=== PATIENT | female | born 1950 | race Caucasian/White ===

== ENCOUNTER 2021-04-20 16:19 | Inpatient (IN) | payer MEDICARE, SELFPAY ==
--- NOTE | ~2021-04-20 | XR_ITS ---
XR hip RT min 3V w AP pelvis 04/20/2021 20:40 Indication: Right hip pain after fall Procedure: AP pelvis and 2 views right hip Comparison: No prior studies for comparison. Findings: There is a displaced right femoral neck fracture with varus angulation. Pelvic rings are in tact. No other fracture identified. Mild osteoarthritis of the hips. Sacral foramen are symmetric. Th ere is amorphous calcification in the left pelvis, likely calcified uterine fibroid. Impression: 1: Displaced right femoral neck fracture with varus angulation. Reviewed, dictated and finalized at location A. L MAIL CARRIER Impression: 1: Displaced right femoral neck fracture with varus angulation.
--- NOTE | ~2021-04-20 | CT_ITS ---
EXAMINATION: CT brain wo con DATE: 04/20/2021 20:48 INDICATION: Status post fall. Bruising of the right ICA. Laceration to the right eyelid. TECHNIQUE: Computed tomography (CT) of the head was performed without intravenous contrast. The dose- length product was 605.33 mGy-cm. Automated exposure control and iterative reconstruction technique w ere employed. COMPARISON: None FINDINGS: Mild generalized atrophy. There are scattered moderate periventricular and subcortical whit e matter changes, most likely related to small vessel ischemic disease (microangiopathy). No acute in tracranial hemorrhage, infarction, mass or mass effect. Paranasal sinuses and mastoids are pneumatize d. No depressed skull fractures. There is right sphenoid sinusitis. IMPRESSION: 1. No acute intracranial abnormality. 2: Chronic age-related findings. 3: Right sphenoid sinusitis. Reviewed, dictated and finalized at location A. ESS CONTROL BOARD OPERATOR
--- NOTE | ~2021-04-20 | XR_ITS ---
EXAMINATION: XR hip RT min 2V DATE: 04/21/2021 18:25 INDICATION: Right hip arthroplasty TECHNIQUE: 2 views right hip FINDINGS: There is a right bipolar hip arthroplasty in expected position. Subcutaneous gas with soft tissue swelling are consistent with recent surgery. IMPRESSION: 1. Recent right bipolar hip arthroplasty. Reviewed, dictated and finalized at location A. PRESIDENT OF PRODUCT MARKETING
--- NOTE | ~2021-04-20 | XR_ITS ---
XR chest 1V portable 04/20/2021 21:05 Indication: Preop Procedure: AP portable chest Comparison: 03/11/2006 Findings: Heart size normal. There is mild bilateral interstitial infiltrates with peribronchial thic kening no pleural effusion or pneumothorax. No acute osseous abnormality. Impression: 1: Bilateral interstitial infiltrates of the mid and lower lung zones which may reflect mild intersti tial edema or atypical pneumonia. Reviewed, dictated and finalized at location A. DBOAT DRIVER Impression: 1: Bilateral interstitial infiltrates of the mid and lower lung zones which may reflect mild interstitial edema or atypical pneumonia.
[2021-04-20 16:37] VITALS: BP 151/87; PULSE 92; RESP 18; TEMP 36.4; O2SAT 97
[2021-04-20 19:31] VITALS: BP 158/83; PULSE 95; RESP 18; TEMP 36.8; O2SAT 96
[2021-04-20] MEDS: TETANUS,DIPHTHERIA,AC PERTUSSIS ADULT (0.5 ML) BOOSTRIX IM (20:53)
--- NOTE | 2021-04-20 20:54 | ECG_ITS ---
Measurements Intervals Emporium Rate: 101 P: 51 MS: 112 QRS: 32 QRSD: 86 T: 75 QT: 308 QTc: 399 Interpretive Statements SINUS TACHYCARDIA WITH SHORT MS INTERVAL NONSPECIFIC ST & T-WAVE ABNORMALITY- DIFFUSE LEADS BASELINE ARTIFACT- I, II, III, AVR, AVF, V4 BORDERLINE ECG Electronically Signed On 04-21-2021 5:47:26 BOARD FILLER by Clayton Jose D.O.
--- NOTE | 2021-04-20 21:23 | ED.FALL ---
HPI - Fall General Chief Complaint: Fall Stated Complaint: Fall/ R hip pain/struck head Time Seen by Provider: 04/20/21 19:43 Source: patient Mode of arrival: wheelchair Limitations: no limitations History of Present Illness HPI Narrative: 70-year-old female Patient says that she was out in her yard where her has a large inflatable chipmunk as part of their [employer]ha display and it is steak that with ropes and she tripped over one of the ropes and fell on her right side She has right hip and thigh pain and is unable to bear weight She has contusion and abrasions to the right side of her face near her right eye No loss of consciousness No symptoms preceded the fall Past medical history is notable for type 2 diabetes and peripheral neuropathy Related Data Home Medications Medication Instructions Recorded Confirmed cetirizine 10 mg capsule 10 mg PO DAILY cap 03/20/19 03/17/21 naproxen sodium 220 mg capsule 440 mg PO .QD PRN cap 12/09/20 03/17/21 Allergies Allergy/AdvReac Type Severity Reaction Status Date / Time lisinopril Allergy Intermediate Cough Verified 03/17/21 10:31 egg AdvReac Mild WHOLE EGGS Verified 03/17/21 10:31 CAUSE N/V; OK IF IN FOOD Review of Systems Review of Systems: All systems reviewed & are unremarkable except as noted in HPI and below Constitutional: Constitutional: Reports no additional constitutional complaints, Denies chills, Denies fever(s) and Denies headache(s) Eyes: Eyes: Reports no additional eye complaints and Denies change in vision ENT: Reports system reviewed and no additional complaints, except as documented, Denies headache(s), Denies epistaxis and Denies sore throat Cardiovascular: Cardiovascular: Denies chest pain and Denies dyspnea Respiratory: Respiratory: Denies cough and Denies dyspnea Gastrointestinal: Gastrointestinal: Denies nausea and Denies vomiting Genitourinary: Genitourinary: Denies urinary frequency and Denies dysuria Musculoskeletal: Musculoskeletal: Denies back pain, Denies deformity, Reports arthralgias, Reports joint swelling and Denies numbness Integumentary/Breasts: Skin/Breast: Denies rash and Denies wounds Neurologic: Denies headache(s), Denies focal weakness and Denies numbness Psychiatric: Psychiatric: Reports no additional psychiatric complaints Endocrine: Endocrine: Reports no additional endocrine complaints Hematologic/Lymphatic: Hematologic/Lymphatic: Reports no additional hematologic/lymphatic complaints Allergic/Immunologic: Allergic/Immunologic: Reports no additional allergic/immunologic complaints [facility] Past Medical History Medical History BMI 25.0-25.9,adult BMI 26.0-26.9,adult Fatigue Hematuria Mixed hyperlipidemia Numbness and tingling of right arm Polyuria Type 2 diabetes, uncontrolled, with neuropathy Family History Family History Mother Family history of diabetes mellitus in first degree relative Other Diabetes mellitus Family history of coronary artery disease Hypertension Social History Social History Smoking status: Never smoker Alcohol intake: never Substance use: never Exam Const: General: cooperative, no acute distress and alert Orientation/consciousness: patient oriented x3 (alert) HENMT: Head: normocephalic, atraumatic, contusion, hematoma and laceration Ears: external ears normal General nose exam: no epistaxis Face and sinus: no sinus tenderness Other: Bruising around left eye and a tiny very superficial laceration No bony step-offs Pupil and conjunctive appear normal Ocular movements are intact in all directions Eyes: Conjunctivae: conjunctivae normal Pupils: Equal, round and reactive pupils present EOM: EOMs intact bilaterally Neck: Neck: normal visual inspection, supple and no JVD Other: No
[2021-04-20 21:33] LABS: Basophils Percent Auto 0.3 % (0.2-1.2); Eosinophils Absolute Auto 0.2 K/mm3 (0-0.3); Eosinophils Percent Auto 1.3 % (0-4.4); Hematocrit 41.6 % (37.0-47.0); Immature Granulocyte Absolute 0.07 K/mm3 (0.00-0.031); Immature Granulocyte Percent A 0.6 % (0-0.5); Lymphocytes Absolute Auto 1.61 K/mm3 (0.9-3.2); Lymphocytes Percent Auto 13.2 % (18.3-44.2); Mean Corpuscular HGB Conc 33.7 g/dl (32-36); Mean Corpuscular Hemoglobin 29.7 pg (26-34); Mean Corpuscular Volume 88.1 fl (80-100); Mean Platelet Volume 9.6 fl (7.4-10.4); Monocytes Absolute Auto 0.7 K/mm3 (0.1-0.6); Neutrophils Absolute Auto 9.6 K/mm3 (1.3-6.7); Neutrophils Percent Auto 78.6 % (45.5-73.1); Platelet Count Result 233 k/mm3 (150-375); Red Blood Count 4.72 M/mm3 (4.2-5.4); Red Cell Distribution Width 12.2 % (11.5-14.5); White Blood Count 12.2 K/mm3 (4.5-10.0)
[2021-04-20 21:41] LABS: Prothrombin Time 12.6 Seconds (11.1-14.7)
[2021-04-20 21:44] LABS: Anion Gap 13 mmol/L (8-16); Blood Urea Nitrogen 9 mg/dL (7-17); Calcium 9.9 mg/dL (8.4-10.2); Carbon Dioxide 25 mmol/L (22-30); Chloride 104 mmol/L (98-107); Estimated CRCL calculation 94 ml/min; Estimated Glomerular Filt Rate > 60; Glucose 150 mg/dL (65-110); Potassium 3.6 mmol/L (3.4-5.0); Sodium 142 mmol/L (137-145)
--- NOTE | 2021-04-20 21:47 | PM.IMHP ---
H&P: HPI History of Present Illness Date/Time: 04/20/21 21:47 Chief Complaint: Fall Narrative: This is a 70-year-old female with past medical history significant for type 2 diabetes mellitus, peripheral diabetic neuropathy, mixed hyperlipidemia. Patient presented to the emergency room via EMS after she had a fall from level ground after she tripped over Radha decorations in her yd falling on her right side and striking her right orbit. Patient was unable to get up on her on due to pain upon weight-bearing and limited range of motion with excruciating pain. Patient has been in her usual state of health she denies any loss of consciousness, syncope ,near syncope ,lightheadedness, dizziness, chest pain ,shortness of breath ,cough sputum production, fevers ,rigors or chills, no nausea ,no vomiting ,no diarrhea ,no abdominal pain, no calf pain ,no leg swelling, no palpitations. Preliminary workup in the emergency room was significant for hip x-ray with right femoral neck fracture with varus angulation and deformity. At the time of my visit patient was complaining of severe pain which is relieved with pain medication gets worse with movement. Decision has been made to admit the patient for further evaluation management and treatment, orthopedic surgery has been consulted. Review of Systems Review of Systems: Fall ,right orbit blunt trauma, right hip pain limited range of motion pain upon weight-bearing. Constitutional: Constitutional: Denies chills, Denies fever(s), Denies frequent falls, Denies malaise, Denies night sweats, Denies poor appetite and Denies weakness Eyes: Eyes: Denies change in vision ENT: Denies dysphagia, Denies vertigo, Denies dizziness, Denies nasal congestion, Denies nasal discharge and Denies odynophagia Cardiovascular: Cardiovascular: Denies chest pain with activity, Denies radiating jaw, neck or arm pain, Denies palpitations, Denies dyspnea, Denies dyspnea on exertion and Denies orthopnea Respiratory: Respiratory: Denies cough, Denies excessive phlegm production and Denies dyspnea Gastrointestinal: Gastrointestinal: Denies abdominal pain, Denies dyspepsia, Denies heartburn, Denies diarrhea, Denies nausea and Denies vomiting Genitourinary: Genitourinary: Denies dysuria and Denies flank pain Musculoskeletal: Musculoskeletal: Reports deformity, Reports arthralgias and Reports limited range of motion Comments: Right hip Integumentary/Breasts: Skin/Breast: Denies rash and Reports wounds Comments: Some abrasion wounds Neurologic: Denies vertigo, Denies dizziness, Denies syncope, Denies focal weakness, Denies Sensory deficit (Neuro) and Denies other Psychiatric: Psychiatric: Reports no additional psychiatric complaints and Reports as per HPI Endocrine: Endocrine: Denies excessive sweating, Denies heat intolerance, Denies polydipsia, Denies polyuria and Denies palpitations Hematologic/Lymphatic: Hematologic/Lymphatic: Reports no additional hematologic/lymphatic complaints and Reports as per HPI Allergic/Immunologic: Allergic/Immunologic: Reports no additional allergic/immunologic complaints and Reports as per HPI [facility] Past Medical History Medical History BMI 25.0-25.9,adult BMI 26.0-26.9,adult Fatigue Hematuria Mixed hyperlipidemia Numbness and tingling of right arm Polyuria Type 2 diabetes, uncontrolled, with neuropathy Family History Family History Mother Family history of diabetes mellitus in first degree relative Other Diabetes mellitus Family history of coronary artery disease Hypertension Social History Social History Smoking status: Never smoker Alcohol intake: never Substance use: never Substance use type: does not use Spiritual care concerns: No Meds Home Medications and Allergies Home Medications Medication Instructions
[2021-04-20 22:09] VITALS: BP 154/77; PULSE 91; RESP 20; O2SAT 99
[2021-04-20 22:50] LABS: EDCOVIDSCREEN Negative (Negative)
[2021-04-21] VITALS (17 sets, daily range): BP systolic 106–155; BP diastolic 62–85; PULSE 85–107; RESP 12–20; TEMP 36.2–36.7; O2SAT 92–100; BMI 26.2
[2021-04-21] MEDS: MORPHINE SULFATE (*CRX) 4 MG/ML INJ IV PUSH ×2 (00:24→09:03)
[2021-04-21] MEDS: LACTATED RINGERS 1,000 ML 125 ML IV CONT ×2 (00:31→13:00)
--- NOTE | 2021-04-21 05:01 | PC.NURSE ---
This patient, Brook Hansen, was admitted to 3 [facility] Surg Room 313-01. Patient/family oriented to hospital policies and general routines including ID bracelet, bed and alarms, visiting hours, pain management, procedures, bathroom and other care routines, personal items, smoking policy, room service/diet, and visiting hours. Information on how to activate the Rapid Response Team has been discussed. Patient/Family are encouraged to report perceived risks to care and to ask questions if they do not understand what they are told or what they should do.
--- NOTE | 2021-04-21 07:59 | PM.CNOR ---
Assessment and Plan Additional Plan Right Garden 4 femoral neck fx Hemiarthroplasty scheduled for this PM Medicine to see and optimize for surg. anesthesia aware had surg in 20s and was slow to wake up History of Present Illness HPI Consult date: 04/21/21 Chief complaint: right hip fracture Narrative: 70 yo tripped over [employer] for [employer] decoration in her yard sustaining a right gardern 4 femoral neck fx. Had surgery when in her 20s and took a long time to wake up. DM on insulin, diabetic neuropaty and hyperlipidema. [facility] Past Medical History Medical History BMI 25.0-25.9,adult BMI 26.0-26.9,adult Fatigue Hematuria Mixed hyperlipidemia Numbness and tingling of right arm Polyuria Type 2 diabetes, uncontrolled, with neuropathy Family History Family History Mother Family history of diabetes mellitus in first degree relative Other Diabetes mellitus Family history of coronary artery disease Hypertension Social History Social History Smoking status: Never smoker Alcohol intake: never Substance use: never Substance use type: does not use Spiritual care concerns: No Meds Home Medications and Allergies Home Medications Medication Instructions Recorded Confirmed Type insulin aspart U-100 100 unit/mL 1 unit SUB-Q BID #15 ml 10/22/20 04/21/21 Rx (3 mL) subcutaneous pen flash glucose sensor #2 each 02/24/21 03/17/21 Rx empagliflozin 25 mg-metformin ER 1 tablet PO BID #180 ea 03/17/21 04/21/21 Rx 1,000 mg tablet,extended release 24hr gabapentin 300 mg capsule 600 mg PO QHS #180 cap 03/17/21 04/21/21 Rx ropinirole 1 mg tablet 1 mg PO .QHS #90 tablet 03/17/21 04/21/21 Rx pen needle, diabetic 31 gauge x #100 each 04/06/21 Rx 5/16 Allergies Allergy/AdvReac Type Severity Reaction Status Date / Time lisinopril Allergy Intermediate Cough Verified 03/17/21 10:31 egg AdvReac Mild WHOLE EGGS Verified 03/17/21 10:31 CAUSE N/V; OK IF IN FOOD Vital Signs Vital Signs - 24 hr 04/20/21 16:37 04/20/21 19:31 04/20/21 22:09 Temperature 36.4 C L 36.8 C Pulse Rate 92 95 91 Respiratory Rate 18 18 20 Blood Pressure 151/87 H 158/83 H 154/77 H Pulse Oximetry 97 96 99 04/21/21 01:10 04/21/21 04:21 04/21/21 04:24 Temperature 36.7 C Pulse Rate 92 95 Respiratory Rate 18 18 Blood Pressure 153/85 H 155/85 H Pulse Oximetry 99 96 Exam Extrem: Other: Right hip ER and shortened. Nv intact distally calves NT bilat Moves ankle and toes xrays show a garden 4 femoral neck fx on right Results Labs Result Diagrams: 04/20/21 21:24 04/20/21 21:24 Labs: Abnormal lab results 04/20/21 04/20/21 Range/Units 21:24 21:24 WBC 12.2 H (4.5-10.0) K/mm3 Immature Gran % (Auto) 0.6 H (0-0.5) % Neut % (Auto) 78.6 H (45.5-73.1) % Lymph % (Auto) 13.2 L (18.3-44.2) % Moore # (Auto) 0.7 H (0.1-0.6) K/mm3 Abs Immat Gran (auto) 0.07 H (0.00-0.031) K/mm3 Absolute Neuts (auto) 9.6 H (1.3-6.7) K/mm3 Creatinine 0.40 L (0.7-1.0) mg/dL Glucose 150 H (65-110) mg/dL H & H 04/20/21 Range/Units 21:24 Hgb 14.0 (12.0-15.0) g/dL Hct 41.6 (37.0-47.0) % Coagulation 04/20/21 Range/Units 21:24 INR 1.0 All other labs normal.
[2021-04-21] MEDS: ONDANSETRON INJ 4 MG/2 ML VIAL IV PUSH (13:44)
[2021-04-21] MEDS: LACTATED RINGERS 1,000 ML 30 ML IV CONT (14:35)
--- NOTE | 2021-04-21 15:24 | WPDHPUPDATE1 ---
History and Physical Update Update Date/Time: 04/21/21 15:24 History and Physical has been reviewed, including an updated exam of the patient. There are NO changes in the patient's condition. Risks, benefits, and alternatives have been discussed and questions answered. Patient agrees to proceed with procedure.
--- NOTE | 2021-04-21 15:38 | PM.IMPN ---
Progress Note: A&P Assessment and Plan (1) Hip fracture, right: Code(s): S72.001A - Fracture of unspecified part of neck of right femur, initial encounter for closed fracture Status: Acute Assessment and Plan: -Hemiarthroplasty scheduled for today -Currently NPO -Pain medication as needed -Further management per surgery, appreciate their recommendations (2) Facial contusion: Code(s): S00.83XA - Contusion of other part of head, initial encounter Status: Acute Assessment and Plan: -Local care -Continue to monitor -CT head reviewed (3) Fall as cause of accidental injury at home as place of occurrence: Code(s): W19.XXXA - Unspecified fall, initial encounter; Y92.009 - Unspecified place in unspecified non-institutional (private) residence as the place of occurrence of the external cause Status: Acute Assessment and Plan: -No loss of consciousness -Ground level mechanical fall (4) Type 2 diabetes, uncontrolled, with neuropathy: Code(s): E11.40 - Type 2 diabetes mellitus with diabetic neuropathy, unspecified; E11.65 - Type 2 diabetes mellitus with hyperglycemia Status: Acute Assessment and Plan: -Holding empaglifozin/ metformin -1800 calorie restricted diet carb consistent to be restarted in the post op -Pt refusing our insulin and does not want us to manage her blood sugar. Spoke w/ nurse civil manager Aditi and powerhouse engineer Meghan. Plan is to take patient's insulin when her brings it, send it down to pharmacy to verify and we will hold it for her, we will do accuchecks q2 hours and supervise her administering her insulin according to her sliding scale. We will use our accuchecks over her continuous glucose monitor to determine sliding scale. (5) Infiltrate of lung present on chest x-ray: Code(s): R91.8 - Other nonspecific abnormal finding of lung field Status: Acute Assessment and Plan: -CXR reading bilateral infiltrates vs edema -Will check BNP -Will check inflammatory markers, low suspicion for covid -Consider chest CT -Very minimal leukocytosis without cough or fever, will consider abx pending above findings Subjective Date/time seen: 04/21/21 15:38 Interval history: 70-year-old female with past medical history significant for type 2 diabetes mellitus, peripheral diabetic neuropathy, mixed hyperlipidemia admitted to the hospital for right hip fracture. This morning her pain is moderate after pain medications, worse w/ any type of movement. Other than that she has no complaints. Does have a continuous glucose monitor and is telling me that she will not be letting us manage her diabetes or her insulin, that she is doing it herself without any exceptions. States her is bringing her insulin from home but she will not be letting us manage her blood sugar. Review of Systems Review of Systems: General: Denies fevers, chills Eyes: Denies vision changes ENT: Denies nasal congestion or sore throat, +facial pain/contusion Respiratory: Denies cough or shortness of breath Cardiovascular: Denies chest pain, palpitations, or lower extremity edema Gastrointestinal: Denies abdominal pain, vomiting, or diarrhea Genitourinary: Denies dysuria or urinary frequency Musculoskeletal: +hip pain Neurological: Denies motor weakness Integumentary: +facial ecchymosis Exam Narrative: General: No acute distress, non toxic appearing Eyes: PERRL, no scleral icterus, EOMI HEENT: right periorbital ecchymosis, external ears normal, mucous membranes moist Respiratory: No respiratory distress, Lungs CTA bilaterally, no wheezing Cardiovascular: RRR, no murmur Abdominal: Soft, nontender, non distended, no rebound or guarding Musculoskeletal: RLE shortened and externally rotated Neurological: A/Ox3, speech normal, no facial asymmetry Skin: periorbital ecchymosis, right knee abrasion Psychiatric: Normal affect, normal mood
--- NOTE | 2021-04-21 15:38 | WPDANESEPPF ---
Anes - Initial Pre Proc Eval Procedure: Operation Date: 04/21/21 16:30 Proposed Procedures p Right Bipolar Hip Replacement - Tee Huang MD Date/Time: 04/21/21 15:38 Surgeon: Jackie Amador PA-C Pre Op Diagnosis: right hip fracture Patient Data Age: 70 Gender: F Height: 1.63 m Weight: 69.2 kg Last Vital Signs Temp 36.7 C 04/21/21 14:35 Pulse 102 H 04/21/21 14:35 Resp 20 04/21/21 14:35 BP 142/68 H 04/21/21 14:35 Pulse Ox 94 04/21/21 14:35 Allergies Allergy/AdvReac Type Severity Reaction Status Date / Time lisinopril Allergy Intermediate Cough Verified 03/17/21 10:31 egg AdvReac Mild WHOLE EGGS Verified 03/17/21 10:31 CAUSE N/V; OK IF IN FOOD Home Medications Medication Instructions Recorded Confirmed Type insulin aspart U-100 100 unit/mL 1 unit SUB-Q BID #15 ml 10/22/20 04/21/21 Rx (3 mL) subcutaneous pen flash glucose sensor #2 each 02/24/21 03/17/21 Rx empagliflozin 25 mg-metformin ER 1 tablet PO BID #180 ea 03/17/21 04/21/21 Rx 1,000 mg tablet,extended release 24hr gabapentin 300 mg capsule 600 mg PO QHS #180 cap 03/17/21 04/21/21 Rx ropinirole 1 mg tablet 1 mg PO .QHS #90 tablet 03/17/21 04/21/21 Rx pen needle, diabetic 31 gauge x #100 each 04/06/21 Rx 09/21 Laboratory Tests 04/20/21 04/20/21 04/20/21 21:24 21:24 21:24 WBC 12.2 K/mm3 H K/mm3 (4.5-10.0) RBC 4.72 M/mm3 M/mm3 (4.2-5.4) Hgb 14.0 g/dL g/dL (12.0-15.0) Hct 41.6 % % (37.0-47.0) MCV 88.1 fl fl (80-100) MCH 29.7 pg pg (26-34) MCHC 33.7 g/dl g/dl (32-36) RDW 12.2 % % (11.5-14.5) Plt Count 233 k/mm3 k/mm3 (150-375) MPV 9.6 fl fl (7.4-10.4) Immature Gran % (Auto) 0.6 % H % (0-0.5) Neut % (Auto) 78.6 % H % (45.5-73.1) Lymph % (Auto) 13.2 % L % (18.3-44.2) [place] % (Auto) 6.0 % % (2.6-8.5) Eos % (Auto) 1.3 % % (0-4.4) Baso % (Auto) 0.3 % % (0.2-1.2) Lymph # (Auto) 1.61 K/mm3 K/mm3 (0.9-3.2) [place] # (Auto) 0.7 K/mm3 H K/mm3 (0.1-0.6) Eos # (Auto) 0.2 K/mm3 K/mm3 (0-0.3) Baso # (Auto) 0.0 K/mm3 K/mm3 (0.0-0.1) Abs Immat Gran (auto) 0.07 K/mm3 H K/mm3 (0.00-0.031) Absolute Neuts (auto) 9.6 K/mm3 H K/mm3 (1.3-6.7) Absolute Nucleated RBC 0.0 K/mm3 K/mm3 (0.0-0.012) Nucleated RBC % 0.0 % % (0.0-0.2) PT 12.6 Seconds Seconds (11.1-14.7) INR 1.0 Sodium 142 mmol/L mmol/L (137-145) Potassium 3.6 mmol/L mmol/L (3.4-5.0) Chloride 104 mmol/L mmol/L (98-107) Carbon Dioxide 25 mmol/L mmol/L (22-30) Anion Gap 13 mmol/L mmol/L (8-16) BUN 9 mg/dL mg/dL (7-17) Creatinine 0.40 mg/dL L mg/dL (0.7-1.0) Estim Creat Clear Calc 94 ml/min ml/min Estimated GFR > 60 (59 - ) Glucose 150 mg/dL H mg/dL (65-110) Calcium 9.9 mg/dL mg/dL (8.4-10.2) SARS-CoV-2 IgG/IgM Ag?Rapid Blood Type Antibody Screen 04/20/21 04/20/21 21:24 22:31 WBC RBC Hgb Hct MCV MCH MCHC RDW Plt Count MPV Immature Gran % (Auto) Neut % (Auto) Lymph % (Auto) [place] % (Auto) Eos % (Auto) Baso % (Auto) Lymph # (Auto) [place] # (Auto) Eos # (Auto) Baso # (Auto) Abs Immat Gran (auto) Absolute Neuts (auto) Absolute Nucleated RBC Nucleated RBC % PT INR Sodium Potassium Chloride Carbon Dioxide Anion Gap BUN Creatinine Estim Creat Clear Calc Estimated GFR
[2021-04-21 15:39] LABS: Glucose Point of Care 104 mg/dl (65-105)
[2021-04-21] MEDS: ceFAZolin 2 GM/D5W 50 ML 2 GM/50 ML BAG IVPB (15:56)
[2021-04-21] MEDS: TRANEXAMIC ACID 1,000 MG/10 ML AMPUL 1000 MG IV PUSH (17:13)
--- NOTE | 2021-04-21 17:44 | W.PM.PROC2 ---
Procedure Note - Detailed Date of Procedure 04/21/21 Pre-op Diagnosis right hip fracture garden 4 femoral neck fracture Post-op Diagnosis same Procedure Performed Right Hip hemiarthroplsty with a bipolar. Surgeon Tee Huang MD Revolving Field Assembler Neela Anesthesia general Indications Garden 4 femoral neck fracture Description of Procedure The patient was identified and brought to the operating room. She was placed in supine position on the operating room table and general anesthetic was induced. Once her ET tube was secure she was positioned into the left lateral decubitus which presented the broken right hip to the surgeon. Care was taken to carefully pad the bony prominences and an axillary roll was utilized. The patient was on a pegboard and this was used to secure her in this position. All of the pegs were carefully padded as well. We confirmed that we had good access to her hip and we could flex and abduct her hip properly so as to manipulate the leg and position it for this planned surgical procedure. A surgical time-out and time in was then performed and we confirmed that this was the correct patient and the correct side. The enedina that I had placed on her proximal thigh was visible at the time of my incision. She had received appropriate antibiotics as necessary for the proposed procedure. All the equipment necessary to perform the procedure was available. We discussed any particular medical or anesthetic issues. All of the personnel in the room were ready and agreed to move forward. I outlined the proximal femur on the skin with a surgical marker. We planned a posterior approach which was to be over the posterior 1/3 of the greater trochanter. A 10 cm incision was made heading coincident with the femoral shaft crossing the posterior 1/3 of the greater trochanter and heading toward the posterior superior iliac spine. Ten blade scalp was used and this incision was made taken sharply through the skin and subcutaneous dissection down to the fascia. Hemostasis was obtained throughout the case with electrocautery. The fascia diann was then cleared of soft tissue as was the fascia overlying the gluteus sabra. This was then incised coincident with the incision. I was able to palpate the gluteus sabra insertion posterior to our approach. I then incised the fascia diann felt posteriorly for the gluteus sabra insertion and then continued with blunt spreading of the gluteus sabra muscle. The Charnley C retractor was then placed. The proximal aspect of the quadratus femoris and the external rotators were then identified and using Bovie electrocautery these were released. The piriformis was tagged and released from the piriformis fossa. The other short external rotators were tagged and released as well. The capsule was identified and T'd and the 2 corners were marked with tag sutures. This exposed the fracture in the femoral head. There was dark red blood in the capsule which was suctioned. We were then able to dislocate the hip and the femoral head was removed and measured on the back table. Bovie electrocautery was used to transect the ligamentum. The head was measured on the back table as a 47 mm. The femoral neck was then marked for resection and once I was satisfied with the level in the angle of the resection we made that with the saw. The femur was then placed into the acetabular position and the acetabular sizing lollipops were used. An appropriate sized femoral head had the best fit. . I moved the femur into the femoral preparation position. A Amandeep was used to find the canal and then the T-handled canal finer was utilized. I then sequentially broached until we got to a 5. Broach which was the correct femoral size. Once the appropriate sizes were determined the hip was then trialed and this recreated the anatomy for the patient quite well. Her leg lengths were equal. I was able to flex the hip to 90? abduct to past 45? and internally ro
[2021-04-21 18:17] LABS: Glucose Point of Care 142 mg/dl (65-105)
[2021-04-21 20:55] LABS: Glucose Point of Care 128 mg/dl (65-105)
[2021-04-21] MEDS: SODIUM CHLORIDE 0.9% IV 1,000 ML 125 ML IV CONT (21:27)
[2021-04-22] MEDS: ASPIRIN 325 MG ENTERIC TABLET PO ×2 (00:24→10:27)
[2021-04-22 00:44] VITALS: BP 128/70; PULSE 104; RESP 20; TEMP 36.3; O2SAT 100
[2021-04-22 05:38] VITALS: BP 132/81; PULSE 104; RESP 20; TEMP 36.6; O2SAT 98
[2021-04-22 06:00] VITALS: BP 128/81; PULSE 105; RESP 22; TEMP 36.6; O2SAT 98
[2021-04-22] MEDS: SODIUM CHLORIDE 0.9% IV 1,000 ML 125 ML IV CONT (06:07)
[2021-04-22 08:01] LABS: Glucose Point of Care 183 mg/dl (65-105)
[2021-04-22 08:39] LABS: Basophils Percent Auto 0.1 % (0.2-1.2); Eosinophils Percent Auto 0.1 % (0-4.4); Hematocrit 38.9 % (37.0-47.0); Hemoglobin 12.4 g/dL (12.0-15.0); Immature Granulocyte Absolute 0.09 K/mm3 (0.00-0.031); Immature Granulocyte Percent A 0.6 % (0-0.5); Lymphocytes Absolute Auto 1.21 K/mm3 (0.9-3.2); Lymphocytes Percent Auto 7.7 % (18.3-44.2); Mean Corpuscular HGB Conc 31.9 g/dl (32-36); Mean Corpuscular Hemoglobin 29.1 pg (26-34); Mean Corpuscular Volume 91.3 fl (80-100); Mean Platelet Volume 9.7 fl (7.4-10.4); Monocytes Absolute Auto 1.2 K/mm3 (0.1-0.6); Monocytes Percent Auto 7.6 % (2.6-8.5); Neutrophils Absolute Auto 13.2 K/mm3 (1.3-6.7); Neutrophils Percent Auto 83.9 % (45.5-73.1); Platelet Count Result 226 k/mm3 (150-375); Red Blood Count 4.26 M/mm3 (4.2-5.4); Red Cell Distribution Width 12.9 % (11.5-14.5); White Blood Count 15.7 K/mm3 (4.5-10.0)
[2021-04-22 10:25] VITALS: BP 132/68; PULSE 95; RESP 18; TEMP 36.3; O2SAT 99
--- NOTE | 2021-04-22 10:26 | WPDANESPN ---
Anes - Prog Note Post-Op Date/Time: 04/22/21 10:26 Cardiovascular status: normal Respiratory status: normal Airway patency: baseline Mental status: baseline Post-Op hydration status: normal Vital Signs: Last Vital Signs Temp 36.3 C L 04/22/21 10:25 Pulse 95 04/22/21 10:25 Resp 18 04/22/21 10:25 BP 132/68 04/22/21 10:25 Pulse Ox 99 04/22/21 10:25 Pain Score (VAS): 0 I/O: Intake & Output 04/21/21 04/22/21 04/22/21 23:59 07:59 15:59 Intake Total 200 1650 690 Output Total 800 1800 Balance -600 -150 690 Laboratory Tests 04/22/21 08:13 04/21/21 04/21/21 04/21/21 15:38 18:15 20:23 WBC RBC Hgb Hct MCV MCH MCHC RDW Plt Count MPV Immature Gran % (Auto) Neut % (Auto) Lymph % (Auto) Alexander % (Auto) Eos % (Auto) Baso % (Auto) Lymph # (Auto) Alexander # (Auto) Eos # (Auto) Baso # (Auto) Abs Immat Gran (auto) Absolute Neuts (auto) Absolute Nucleated RBC Nucleated RBC % Sodium Potassium Chloride Carbon Dioxide Anion Gap BUN Creatinine Estim Creat Clear Calc Estimated GFR Glucose POC Capillary Glucose 104 142 H 128 H Calcium Ferritin Lactate Dehydrogenase C-Reactive Protein NT-Pro-B Natriuret Pep 04/22/21 04/22/21 04/22/21 07:53 08:13 08:13 WBC 15.7 H RBC 4.26 Hgb 12.4 Hct 38.9 MCV 91.3 MCH 29.1 MCHC 31.9 L RDW 12.9 Plt Count 226 MPV 9.7 Immature Gran % (Auto) 0.6 H Neut % (Auto) 83.9 H Lymph % (Auto) 7.7 L Alexander % (Auto) 7.6 Eos % (Auto) 0.1 Baso % (Auto) 0.1 L Lymph # (Auto) 1.21 Alexander # (Auto) 1.2 H Eos # (Auto) 0.0 Baso # (Auto) 0.0 Abs Immat Gran (auto) 0.09 H Absolute Neuts (auto) 13.2 H Absolute Nucleated RBC 0.0 Nucleated RBC % 0.0 Sodium Potassium Chloride Carbon Dioxide Anion Gap BUN Creatinine Estim Creat Clear Calc Estimated GFR Glucose POC Capillary Glucose 183 H Calcium Ferritin Pending Lactate Dehydrogenase C-Reactive Protein NT-Pro-B Natriuret Pep 04/22/21 08:13 WBC RBC Hgb Hct MCV MCH MCHC RDW Plt Count MPV Immature Gran % (Auto) Neut % (Auto) Lymph % (Auto) Alexander % (Auto) Eos % (Auto) Baso % (Auto) Lymph # (Auto) Alexander # (Auto) Eos # (Auto) Baso # (Auto) Abs Immat Gran (auto) Absolute Neuts (auto) Absolute Nucleated RBC Nucleated RBC % Sodium Pending Potassium Pending Chloride Pending Carbon Dioxide Pending Anion Gap Pending BUN Pending Creatinine Pending Estim Creat Clear Calc Pending Estimated GFR Pending Glucose Pending POC Capillary Glucose Calcium Pending Ferritin Lactate Dehydrogenase Pending C-Reactive Protein Pending NT-Pro-B Natriuret Pep Pending Post-procedural complaints: none Patient Feedback: Patient satisfied with anesthetic care.
[2021-04-22 10:42] LABS: NT Pro B Type Natriuretic Pept 1050 pg/mL (5-100)
[2021-04-22 11:20] LABS: Anion Gap 15 mmol/L (8-16); Blood Urea Nitrogen 15 mg/dL (7-17); CRP 13.5 mg/dL (<1.0); Calcium 8.7 mg/dL (8.4-10.2); Carbon Dioxide 15 mmol/L (22-30); Chloride 109 mmol/L (98-107); Estimated CRCL calculation 66 ml/min; Estimated Glomerular Filt Rate > 60; Glucose 185 mg/dL (65-110); Potassium 4.3 mmol/L (3.4-5.0); Sodium 139 mmol/L (137-145)
[2021-04-22 12:25] LABS: Lactate Dehydrogenase 606 U/L (313-618)
[2021-04-22 14:20] VITALS: BP 133/73; PULSE 110; RESP 18; TEMP 36.2; O2SAT 96
--- NOTE | 2021-04-22 16:24 | PM.IMPN ---
Progress Note: A&P Assessment and Plan (1) Hip fracture, right: Code(s): S72.001A - Fracture of unspecified part of neck of right femur, initial encounter for closed fracture Status: Acute Assessment and Plan: -s/p Hemiarthroplasty, POD #1 -Pain medication as needed -PT/OT, will likely need to go to rehab upon discharge -Further management per surgery, appreciate their recommendations (2) Facial contusion: Code(s): S00.83XA - Contusion of other part of head, initial encounter Status: Acute Assessment and Plan: -Local care -Continue to monitor -CT head reviewed (3) Fall as cause of accidental injury at home as place of occurrence: Code(s): W19.XXXA - Unspecified fall, initial encounter; Y92.009 - Unspecified place in unspecified non-institutional (private) residence as the place of occurrence of the external cause Status: Acute Assessment and Plan: -No loss of consciousness -Ground level mechanical fall (4) Type 2 diabetes, uncontrolled, with neuropathy: Code(s): E11.40 - Type 2 diabetes mellitus with diabetic neuropathy, unspecified; E11.65 - Type 2 diabetes mellitus with hyperglycemia Status: Acute Assessment and Plan: -Home meds empaglifozin and metformin -1800 calorie restricted diet carb consistent 04/21: Pt refusing our insulin and does not want us to manage her blood sugar. Spoke w/ nurse manager product management Aditi and bath house attendant Meghan. Plan is to take patient's insulin when her brings it, send it down to pharmacy to verify and we will hold it for her, we will do accuchecks q2 hours and supervise her administering her insulin according to her sliding scale. We will use our accuchecks over her continuous glucose monitor to determine sliding scale. 04/22: I was informed that patient was giving herself insulin behind the nurses back. Her had brought it in for her. She was very clearly instructed that she would need supervised and administration would need recorded for us to monitor. When questioned about this patient became aggressive, started cussing at myself, nurse, and nurse manager product management. I explained calmly that due to hospital policy it was a liability for her to administer her own insulin without supervision and monitoring, but patient continued to yell, cuss, and scream at me to leave her room. She would not give us her insulin so security was called to search her room. She told me that her would just continue to bring it in and out and under no circumstances was she giving it to us. At this same time the patient's was attempting to leave and take her insulin to the car. For this reason I have instructed nursing staff that patient will be restricted with no visitors. This is due to safety risk to patient of visitors brining in insulin for her that she has been giving herself against the advice and instruction of our staff. This was also discussed with orthopedic surgeon who was made aware. (5) Infiltrate of lung present on chest x-ray: Code(s): R91.8 - Other nonspecific abnormal finding of lung field Status: Acute Assessment and Plan: -CXR reading bilateral infiltrates vs edema -BNP 1050, will do small dose of lasix and order echo, no hx of CHF, likely related to IVF from surgery -CRP elevated and non specific however LDH and Ferritin and WNL, low suspicion for covid at this time. Pt is fully vaccinated. -Does now have leukocytosis of 15.7 without cough or fever, will obtain blood cultures and start empirically on azithromycin and rocephin -Will obtain chest CT for further clarification Subjective Date/time seen: 04/22/21 16:24 Interval history: 70-year-old female with past medical history significant for type 2 diabetes mellitus, peripheral diabetic neuropathy, mixed hyperlipidemia admitted to the hospital for right hip fracture. This morning her pain is improved but still moderate
--- NOTE | 2021-04-22 16:50 | PC.NURSE ---
Dr. Huang at patient's bedside. Patient informed Dr. Huang she was planning on leaving against medical advice this evening. Dr. Huang tried speaking with patient regarding her reasoning for wanting to leave against medical advice and stated he did not think it was a good decision to leave the hospital at this time. Patient stated she was aware of his belief and she was intending on leaving anyway. Dr. Huang asked patient to follow-up with him in 7-10 days at either his [place] or [place] office. RN provided patient with Dr. Huang's contact information and reminded her to make a follow-up appointment. Patient verbalized understanding and stated she was ready to leave and her was waiting at the main entrance for her.
--- NOTE | 2021-04-22 17:27 | PM.DS ---
DS: Admitting Diagnosis Discharge Date 04/22/21 Admitting Diagnosis hip fracture DS: Discharge Diagnosis Discharge Diagnosis (1) Hip fracture, right: Code(s): S72.001A - Fracture of unspecified part of neck of right femur, initial encounter for closed fracture Status: Acute Assessment and Plan: -s/p Hemiarthroplasty, POD #1 -Pain medication as needed -PT/OT, will likely need to go to rehab upon discharge -Further management per surgery, appreciate their recommendations (2) Facial contusion: Code(s): S00.83XA - Contusion of other part of head, initial encounter Status: Acute Assessment and Plan: -Local care -Continue to monitor -CT head reviewed (3) Fall as cause of accidental injury at home as place of occurrence: Code(s): W19.XXXA - Unspecified fall, initial encounter; Y92.009 - Unspecified place in unspecified non-institutional (private) residence as the place of occurrence of the external cause Status: Acute Assessment and Plan: -No loss of consciousness -Ground level mechanical fall (4) Type 2 diabetes, uncontrolled, with neuropathy: Code(s): E11.40 - Type 2 diabetes mellitus with diabetic neuropathy, unspecified; E11.65 - Type 2 diabetes mellitus with hyperglycemia Status: Acute Assessment and Plan: -Home meds empaglifozin and metformin -1800 calorie restricted diet carb consistent 04/21: Pt refusing our insulin and does not want us to manage her blood sugar. Spoke w/ nurse computer operations manager Aditi and warehouse shift supervisor Meghan. Plan is to take patient's insulin when her brings it, send it down to pharmacy to verify and we will hold it for her, we will do accuchecks q2 hours and supervise her administering her insulin according to her sliding scale. We will use our accuchecks over her continuous glucose monitor to determine sliding scale. 04/22: I was informed that patient was giving herself insulin behind the nurses back. Her had brought it in for her. She was very clearly instructed that she would need supervised and administration would need recorded for us to monitor. When questioned about this patient became aggressive, started cussing at myself, nurse, and nurse computer operations manager. I explained calmly that due to hospital policy it was a liability for her to administer her own insulin without supervision and monitoring, but patient continued to yell, cuss, and scream at me to leave her room. She would not give us her insulin so security was called to search her room. She told me that her would just continue to bring it in and out and under no circumstances was she giving it to us. At this same time the patient's was attempting to leave and take her insulin to the car. For this reason I have instructed nursing staff that patient will be restricted with no visitors. This is due to safety risk to patient of visitors brining in insulin for her that she has been giving herself against the advice and instruction of our staff. This was also discussed with orthopedic surgeon who was made aware. (5) Infiltrate of lung present on chest x-ray: Code(s): R91.8 - Other nonspecific abnormal finding of lung field Status: Acute Assessment and Plan: -CXR reading bilateral infiltrates vs edema -BNP 1050, will do small dose of lasix and order echo, no hx of CHF, likely related to IVF from surgery -CRP elevated and non specific however LDH and Ferritin and WNL, low suspicion for covid at this time. Pt is fully vaccinated. -Does now have leukocytosis of 15.7 without cough or fever, will obtain blood cultures and start empirically on azithromycin and rocephin -Will obtain chest CT for further clarification DS: Summary Hospital Course Reason for hospitalization: 70-year-old female with past medical history significant for type 2 diabetes mellitus, peripheral diabetic neuropathy, mixed hyperlipidemia admitted to the
== END 2021-04-22 17:00 | disposition left against medical advice (07) | DRG 522 ==
LOC: ANHED 21:31 → ANH3MED 04-21 00:36 → ANH3MEDSUR 04-21 02:30
PROVIDERS: Specialist; Admitting Provider Internal Medicine; Emergency Provider Emergency Medicine; PCP Family Medicine; Visit Provider Physician Assistant
PROC: 0SRR0JZ Replacement of Right Hip Joint, Femoral Surface with Synthetic Substitute, Open Approach (ICD-10-PCS; CPT 27125; principal; 2021-04-21 16:30)
DX: S72.001A Fracture of unspecified part of neck of right femur, initial encounter for closed fracture (principal); S00.83XA Contusion of other part of head, initial encounter; Z20.822 Contact with and (suspected) exposure to COVID-19; E11.42 Type 2 diabetes mellitus with diabetic polyneuropathy; E11.65 Type 2 diabetes mellitus with hyperglycemia; E78.2 Mixed hyperlipidemia; R91.8 Other nonspecific abnormal finding of lung field; W01.0XXA Fall on same level from slipping, tripping and stumbling without subsequent striking against object, initial encounter; Y92.096 Garden or yard of other non-institutional residence as the place of occurrence of the external cause; Z23 Encounter for immunization; Z28.21 Immunization not carried out because of patient refusal; Z79.4 Long term (current) use of insulin; Z79.84 Long term (current) use of oral hypoglycemic drugs
CPT/HCPCS: 36415; 70450; 71045; 73502; 80048; 82728; 82948; 83615; 83880; 85025; 85610; 86140; 86850; 86900; 86901; 87426; 90471; 90715; 93005; 97161; 97165; 99285; A9270; C1776; C9803; J0690; J1100; J2270; J2405; J2704; J7030; J7120

== ENCOUNTER 2021-05-26 14:41 | Emergency (ER) | payer OTHER, MEDICARE, SELFPAY ==
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
--- NOTE | ~2021-05-26 | XR_ITS ---
EXAMINATION: XR shoulder RT min 2V DATE: 05/26/2021 19:56 INDICATION: Right shoulder injury and pain. TECHNIQUE: 4 views of right shoulder were obtained. COMPARISON: None. FINDINGS: Bone alignment is normal. No fracture. There is mild osteoarthritis of glenohumeral joint a nd acromioclavicular joint. IMPRESSION: 1. Mild polyarticular osteoarthritis. Reviewed, dictated and finalized at location A. R SUBSYSTEM EQUIPMENT OPERATOR
[2021-05-26 14:57] VITALS: BP 147/103; PULSE 118; RESP 18; TEMP 36.4; O2SAT 97
[2021-05-26 17:51] VITALS: BP 174/92; PULSE 113; TEMP 36.4; O2SAT 99
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
[2021-05-26] MEDS: IBUPROFEN 600 MG TABLET PO (20:37)
== END 2021-05-26 21:02 | disposition home or self-care (01) ==
PROVIDERS: Emergency Provider Emergency Medicine; PCP Family Medicine
DX: S46.911A Strain of unspecified muscle, fascia and tendon at shoulder and upper arm level, right arm, initial encounter (principal); E78.2 Mixed hyperlipidemia; E11.40 Type 2 diabetes mellitus with diabetic neuropathy, unspecified; Z96.641 Presence of right artificial hip joint; M19.011 Primary osteoarthritis, right shoulder; Z79.4 Long term (current) use of insulin; V43.62XA Car passenger injured in collision with other type car in traffic accident, initial encounter
CPT/HCPCS: 71046; 73030; 99284; A9270

== ENCOUNTER 2022-12-31 13:48 | Outpatient (CLI) | payer MEDICARE, SELFPAY ==
[2022-12-31 14:37] LABS: Basophils Percent Auto 0.4 % (0.2-1.2); Eosinophils Absolute Auto 0.1 K/mm3 (0-0.3); Hematocrit 39.9 % (37.0-47.0); Hemoglobin 12.1 g/dL (12.0-15.0); Immature Granulocyte Absolute 0.03 K/mm3 (0.00-0.031); Immature Granulocyte Percent A 0.4 % (0-0.5); Lymphocytes Absolute Auto 1.98 K/mm3 (0.9-3.2); Lymphocytes Percent Auto 25.6 % (18.3-44.2); Mean Corpuscular HGB Conc 30.3 g/dl (32-36); Mean Corpuscular Hemoglobin 24.4 pg (26-34); Mean Corpuscular Volume 80.6 fl (80-100); Mean Platelet Volume 9.6 fl (7.4-10.4); Monocytes Absolute Auto 0.5 K/mm3 (0.1-0.6); Monocytes Percent Auto 6.1 % (2.6-8.5); Neutrophils Absolute Auto 5.1 K/mm3 (1.3-6.7); Neutrophils Percent Auto 66.5 % (45.5-73.1); Platelet Count Result 334 k/mm3 (150-375); Red Blood Count 4.95 M/mm3 (4.2-5.4); Red Cell Distribution Width 14.8 % (11.5-14.5); White Blood Count 7.7 K/mm3 (4.5-10.0)
[2022-12-31 14:57] LABS: Alanine Aminotransferase 15 U/L (6-35); Alkaline Phosphatase 172 U/L (38-126); Anion Gap 3 mmol/L (8-16); Aspartate Amino Transferase 21 U/L (14-36); Bilirubin,Total 0.6 mg/dL (0.2-1.3); Blood Urea Nitrogen 13 mg/dL (7-17); Calcium 9.6 mg/dL (8.4-10.2); Carbon Dioxide 31 mmol/L (22-30); Chloride 100 mmol/L (98-107); Estimated Glomerular Filt Rate > 60; Glucose 259 mg/dL (65-110); Potassium 3.9 mmol/L (3.4-5.0); Sodium 134 mmol/L (137-145)
[2022-12-31 15:33] LABS: Erythrocyte Sedimentation Rate 22 mm/hr (0-20)
== END 2022-12-31 13:49 | disposition home or self-care (01) ==
PROVIDERS: PCP Family Medicine; Visit Provider Family Medicine
DX: M25.551 Pain in right hip (principal); M25.451 Effusion, right hip
CPT/HCPCS: 36415; 80053; 85025; 85652; 86140; 87070; 87075; 87205

== ENCOUNTER 2023-01-11 13:12 | Outpatient (CLI) | payer MEDICARE, SELFPAY ==
--- NOTE | ~2023-01-11 | XR_ITS ---
EXAMINATION: XR lg joint inject/asp w image DATE: 01/11/2023 14:27 INDICATION: Right hip joint pain TECHNIQUE: A time-out was performed to verify the patient's name, date of , and procedure to b e performed. The procedure including the risks, benefits, and alternatives was discussed with the pat ient. Risks discussed included bleeding and infection. The patient understood the risks and agreed to proceed. The skin overlying the right hip joint was prepped and draped in usual sterile fashion. A nesthetic was administered with 1% lidocaine subcutaneously. A 22 G needle was advanced under fluoro scopic guidance to contact the anterior margin of the neck of the femoral component of a right total hip arthroplasty. Multiple attempts were made at aspiration of fluid while advancing the needle tip a long the arthroplasty component from distal to proximal including along the femoral head neck junctio n. No fluid was able to be aspirated. The needle was removed and the entry site was cleaned and dress ed. There were no immediate complications. Fluoroscopy exposure time was 0.2 minutes. The total numb er of images was 2. FINDINGS: Real-time fluoroscopy demonstrates the needle tip along the anterior margin of the neck of the femoral component of a right total hip arthroplasty. No fluid was able to be aspirated. IMPRESSION: 1. Postoperative guided attempted right hip joint aspiration which yielded despite attempts at multip le locations along the anterior neck and head neck junction of the right total hip arthroplasty. Reviewed, dictated and finalized at location A. IMPRESSION: 1. Postoperative guided attempted right hip joint aspiration which yielded desp ite attempts at multiple locations along the anterior neck and head neck juncti on of the right total hip arthroplasty.
== END 2023-01-11 13:13 | disposition home or self-care (01) ==
PROVIDERS: PCP Family Medicine; Visit Provider Orthopaedic Surgery
DX: M25.551 Pain in right hip (principal); Z96.60 Presence of unspecified orthopedic joint implant
CPT/HCPCS: 20610; 77002

== ENCOUNTER 2023-01-20 11:22 | Emergency (ER) | payer MEDICARE, SELFPAY ==
[2023-01-20 11:28] VITALS: BP 160/77; PULSE 119; RESP 20; TEMP 36.3; O2SAT 99
--- NOTE | 2023-01-20 11:55 | ED.SKABFB ---
HPI - Skin/Abscess/Foreign Bdy General Chief complaint: Skin/Abscess/Foreign Body Stated complaint: right leg wound Time Seen by Provider: 01/20/23 11:57 Source: patient Mode of arrival: ambulatory Limitations: no limitations History of Present Illness HPI narrative: 72 y/o female presented for c/o 'blood blister' to right hip for about 2 months, which broke open and drained yesterday. States it is on the surgical incision from a previous hip fracture and surgical repair. States the blister has been increasing in size and it drained a large amount of fluid down her leg yesterday. They have applied dressings and the site continues to drain. Patient was seen by ortho Dr Mcmahon about 2 weeks ago, this site was drained at that time. Pt was advised to f/u with [facility], she is scheduled with import/export specialist at [facility] 01/31/23 for hip surgery. Pt has history of DM, however she states she is not taking any medication right now. Related Data Allergies Allergy/AdvReac Type Severity Reaction Status Date / Time lisinopril Allergy Intermediate Cough Verified 11/29/22 13:33 tramadol AdvReac Severe vomiting Verified 11/29/22 13:33 egg AdvReac Mild WHOLE EGGS Verified 11/29/22 13:33 CAUSE N/V; OK IF IN FOOD Review of Systems Review of Systems: CONSTITUTIONAL: Denies body aches, fever, chills, or sweats. EYES: Denies visual changes, redness, or discharge. ENT: Denies rhinorrhea, congestion CARDIOVASCULAR: Denies chest pain, palpitations, or edema. RESPIRATORY: Denies cough or dyspnea. GASTROINTESTINAL: Denies abdominal pain, nausea, vomiting, or diarrhea. SKIN: reports blood blister right hip incision MUSCULOSKELETAL: Denies back pain, joint pain, or myalgia. NEUROLOGIC: Denies headache, numbness, tingling, or weakness. [facility] Past Medical History Medical History BMI 25.0-25.9,adult BMI 26.0-26.9,adult BMI 27.0-27.9,adult Diarrhea due to drug Fatigue Hematuria Lumbar spondylosis with myelopathy Mixed hyperlipidemia Musculoskeletal chest pain Numbness and tingling of right arm Polyuria Type 2 diabetes, uncontrolled, with neuropathy Surgical History Surgical History History of right hip replacement Family History Family History Mother Family history of diabetes mellitus in first degree relative Diabetes mellitus Hypertension Father Sibling Diabetes mellitus Sibling No problems noted. Other Family history of coronary artery disease Social History Social History Smoking status: Never smoker Second hand tobacco smoke exposure: No Alcohol intake: never Substance use: never Substance use type: does not use Living arrangements: with family Occupation/Education: retired Additional occupation/education comments: retail sales Gender identity (if verbalized by the patient): Female Spiritual care concerns: No Comments At time of signature, I have reviewed and agree with nursing past medical, surgical, social and family history unless otherwise noted. Please see nursing chart for further information. There is no relevant family history pertinent to the presenting complaint Exam Narrative: GENERAL: Well-appearing HEAD: Normocephalic, atraumatic. EYES: conjunctivae clear, and EOMI. ENT: Mucous membranes moist. Oropharynx without edema, erythema or lesions. NECK: Supple. No lymphadenopathy CHEST: Clear to auscultation. HEART: Regular rate and rhythm. SKIN: Warm, dry. 4.5x2cm raised thick erythematous bulla to distal end of surgical scar, 2 open sites area draining purulent fluid, site is fluctuant but unable to express additional fluid. Nontender, no surrounding induration or cellulitis. NEURO: Alert and or
== END 2023-01-20 13:03 | disposition left against medical advice (07) ==
PROVIDERS: Emergency Provider Nurse Practitioner Family; PCP Family Medicine
DX: T81.49XA Infection following a procedure, other surgical site, initial encounter (principal); L02.415 Cutaneous abscess of right lower limb; E78.2 Mixed hyperlipidemia; E11.40 Type 2 diabetes mellitus with diabetic neuropathy, unspecified; M47.16 Other spondylosis with myelopathy, lumbar region; Z96.641 Presence of right artificial hip joint
CPT/HCPCS: 99213; G0463

== ENCOUNTER 2023-09-12 15:05 | Outpatient (CLI) | payer MEDICARE, SELFPAY ==
--- NOTE | ~2023-09-12 | DEXA_ITS ---
Bone Density Report Name: GA PADILLA Age: 72 Sex: Female Ethnicity: White Date of : 1950 Indication: postmenopausal; screening for osteoporosis; height loss; history of glucocorticoids; prior fracture; Referring Provider: JUAQUIN LAMBERT Study: Bone densitometry was performed. Exam Date: September 12, 2023 Accession number: [id number] Bone Density: Region BMD T-score Z-score Classification AP Spine(L1-L4) 1.083 0.3 2.5 Normal Femoral Neck (Left) 0.609 -2.2 -0.3 Osteopenia Total Hip (Left) 0.793 -1.2 0.3 Osteopenia World Health Organization criteria for BMD impression classify patients as: Normal (T-score at or above -1.0), Osteopenia (T-score between -1.0 and -2.5), or Osteoporosis (T-score at or below -2.5). 10-year Fracture Risk: FRAX not reported because: Prior hip or vertebral fracture Clinical Information Provided by Patient: Have had a previous hip or vertebral fracture Has had a low trauma fracture Has taken Glucocorticoids Has used the following medications: Calcium Patient maximum height was 67 Menopause Age: 52 No regular weight bearing exercise Onset of menses at age 15 Number of children 0 Impression: The patient has low bone mass, based on the Left Femoral Neck T-score. The patient has risk factors, including: previous fracture, history of glucocorticoid therapy. Discussion: INCREASED RISK OF FRACTURE DUE TO HISTORY OF FRACTURE. The patient's previous fracture puts the patient at high risk of a future fracture. In untreated patients, the risk of osteoporotic fracture increases approximately two-fold for each 1.0 SD decrease in T-score. Low bone density is not the only risk factor for fracture; also consider factors such as patient's age, frailty or poor health, risk of falling, risk of injury, previous osteoporotic fracture, family history of osteoporosis, cigarette smoking, low body weight, etc. Not everyone with a low trauma fracture has osteoporosis; osteomalacia and other metabolic bone disorders should also be considered. Patients who have osteoporosis should be evaluated for specific diseases and conditions (secondary causes) that may cause or contribute to bone loss and fracture risk. National Osteoporosis Foundation (NOF) recommends pharmacologic intervention for patients with a prior hip or vertebral fracture regardless of BMD T-score. The patient should follow a healthful lifestyle (good nutrition with adequate calcium and vitamin D, and appropriate weight-bearing exercise). Follow-Up: Consider a repeat BMD and Vertebral Fracture Assessment (VFA) exam in 2 years or sooner if medically necessary, to reassess this patient's status. Reported by: DEEPTI on 09/12/2023 3:41:00 PM. Reviewed, dictated and finalized at location [facility]
== END 2023-09-12 15:06 | disposition home or self-care (01) ==
LOC: ANHIMG 15:06
PROVIDERS: PCP Family Medicine; Visit Provider Family Medicine
DX: M85.89 Other specified disorders of bone density and structure, multiple sites (principal)
CPT/HCPCS: 77080

== ENCOUNTER 2024-09-19 10:35 | Outpatient (CLI) | payer MEDICARE, SELFPAY ==
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
--- OUTSIDE RECORDS SUMMARY | 2024-09-19 10:55 | XMS_ITS | Clinical Summary ---
Author Organization [facility] Address [address] [place] [address] Care Team Providers Care Patient Care Technician Instructor Name Role Phone Tom Ocampo MD Primary Care Provider [phone] Source Comments [facility],non-owned Affiliates and Associated Physician Practices is amultiple site organization consisting of ambulatory clinics and hospital sitesin [place], [place], [place] and [place]. This disclosure is being madepursuant to the Care Everywhere program and may not contain all information available regarding this patient. Last updated 18.[facility] Fetchnotes Allergies Active Allergy Reactions Criticality Noted Date Comments Adhesive Sensitivity Skin Reactions 02/21/2023 Ok with paper tape Albumin Nausea and/or Vomiting 02/21/2023 Lisinopril Nausea and/or Vomiting 02/02/2023 Tramadol Nausea and/or Vomiting 08/19/2021 Medications * Be aware that medications may not be up to date on this document. Alwaysverify current medications with the patient. gabapentin (Neurontin) 300 MG capsule Take 2 (two) capsules by mouth once daily Active glimepiride (Amaryl) 2 MG tablet Take 1 (one) tablet by mouth once daily 11/29/2022 Active Naproxen Sodium 220 MG Take 220 mg by mouth 2 times daily Active rOPINIRole (Requip) 1 MG tablet Take 1 (one) tablet by mouth once daily Active rosuvastatin (Crestor) 20 MG tablet Take 1 (one) tablet by mouth once daily Active Active Problems No known active problems Social History Tobacco Use Types Packs/Day Years Used Date Smoking Tobacco: Never Smokeless Tobacco: Never Alcohol Use Standard Drinks/Week Comments Not Currently 0 (1 standard drink = 0.6 oz pur e alcohol) Comments Unknown Sex and Gender Information Value Date Recorded Sex Assigned at Not on file Legal Sex Female 11:55 AM CDT Gender Identity Not on file Sexual Orientation Not on file Last Filed Vital Signs Vital Sign Reading Time Taken Comments Blood Pressure 112/71 02/24/2023 3:53 PM CDT Pulse 76 02/24/2023 3:53 PM CDT Temperature 36 C (96.8 F) 02/24/2023 3:25 PM CDT Respiratory Rate 16 02/24/2023 3:53 PM CDT Oxygen Saturation 98% 02/24/2023 3:53 PM CDT Inhaled Oxygen Concentration - - Weight 78.5 kg (173 lb) 02/21/2023 11:16 AM CDT Height 163.8 cm (5' 4.5 ) 02/21/2023 11:16 AM CD T Body Mass Index 29.24 02/21/2023 11:16 AM CDT Plan of Treatment Health Maintenance Due Date Last Done Comments BONE DENSITY TESTING 1950 COLOGUARD (AGES 45-75) - COL ON CA SCREENING 1950 COLON MONITORING 1950 COLONOSCOPY - COLON CA SCREENING 1952 CT COLONOGRAPHY - COLON CA SCREENING 1950 Colorectal Cancer Screening 1950 FIT - COLON CA SCREENING 1952 FLEX SIG - COLON CA SCREENING 1950 MAMMOGRAM 1950 HEPATITIS C SCREENING 11/04/1970 DTAP/TDAP/TD VACCINES (1 - Tdap) 11/09/1971 PNEUMOCOCCAL VACCINE 50+ (1 of 1 - PCV) 2002 ZOSTER VACCINE (1 of 2) 2002 COVID-19 VACCINE ( - 2023-2 5 season) 2024 DEPRESSION SCREENING 05/09/2024 MEDICARE AWV CALENDAR YEAR 2024 INFLUENZA VACCINE (Season Ended) 2025 SCREENING FOR DIABETES 02/24/2026 , 02/24/2023, 02/24/2023 Respiratory Syncytial Virus (RSV) Vaccine Pt: or over 60 yrs (1 - 1-dose 75+ series) 11/09/2027 HEPATITIS B VACCINE Aged Out No longe r eligible based on patient's age to complete this topic HIB VACCINE Aged Out No longer eligi ble based on patient's age to complete this topic HPV VACCINE Aged Out No longer eligi ble based on patient's age to complete this topic MENINGOCOCCAL (Group B) VACCINE SHARED DECISION-MAKING Aged Out No longer eligible based on patient's age to complete this topic MENINGOCOCCAL GROUPS A/C/Y/W VACCINE Aged Out No longer eligible b ased on patient's age to complete this topic Procedures Procedure Name Priority Date/Time Associated Diagnosis Comments GLUCOSE - POINT OF CARE Routine 02/24/2023 12:34 PM CDT from Last 3 Months or Most Recently Relevant to Health Maintenance Results * (ABNORMAL) GLUCOSE - POINT OF CARE (02/24/2023 12:34 PM CDT) [facility] Glucose WB/POC 368(H) 70 - 106 mg/dL 02/24/2023 12:43 PM CDT [facility] Specimen Type Arterial 02/24/2023 12:43 PM CDT [facility] Blood BLOOD SPECIMEN / Unknown 02/24/2023 12:34 PM CDT 02/24/2023 12:43 PM CDT Vishal Cosme MD LAB - POINT OF CARE ORDERAB LES Final Result Performing Organization Address City/State/[facility] Co de Phone Number [facility] [address] [place] [address] from Last 3 Months or Most Recently Relevant to Health Maintenance Insurance [employer] ADV HMO & PPO [employer] MEDICARE ADV HMO & PPO Care Teams Patient Care Technician Instructor Relationship Specialty Start Date End Date Tom Ocampo MD [address] [place] [address] PCP - General Family Medicine 02/02/23
--- OUTSIDE RECORDS SUMMARY | 2024-09-19 10:55 | XMS_ITS | Clinical Summary ---
Author Organization [facility] Address [address] [place] [address] Care Team Providers Care All Source Collection Manager Name Role Phone Tom Ocampo MD Primary Care Provider [phone] Allergies Active Allergy Reactions Criticality Noted Date Comments Albumin Human Nausea and Vomiting 02/21/2023 Dermatitis Antigen Unknown 02/21/2023 Ok with paper tape Lisinopril Nausea and Vomiting 02/02/2023 Tramadol GI Upset 08/19/2021 Medications Naproxen Sodium (ALEVE) 220 MG Cap Take 220 mg by mouth 2 (two) times a day. Active Fexofenadine HCl (ALLERGY 24-HR OR) Take 180 mg by mouth daily. Active ROPINIROLE HCL OR Take 1 mg by mouth nightly. Active gabapentin 300 MG capsule Take 2 capsules (600 mg total) by mouth nightly at bedtime. Active TRULICITY 3 MG/0.5ML Solution Pen-injector Inject 3 mg into the skin weekly. Every tuesday08/06/2021 Active NOVOLOG FLEXPEN 100 UNIT/ML injection (PEN) Inject 0-10 Units into the skin 4 (four) times daily with meals and nightly. Sliding scale with meals and at HS 06/23/2021 Active Empagliflozin-m etFORMIN HCl ER (SYNJARDY XR) 25-1000 MG TABLET SR 24 HR Take 1 tablet by mouth after dinner. Active cyclobenzaprine 10 MG tablet Take 1 tablet (10 mg total) by mouth 2 (two) times a day. Active albuterol sulfate HFA 108 (90 Base) MCG/ACT inhaler 07/25/2024 Act sheyla Continuous Glucose Sensor (FREESTYLE ANKIT 2 SENSOR) Misc 07/25/2024 Active glimepiride (AMARYL) 2 MG tablet 06/29/2024 Active LANTUS SOLOSTAR 100 UNIT/ML injection (PEN) 07/03/2024 Act sheyla HUMALOG KWIKPEN 100 UNIT/ML injection (PEN) 06/29/2024 Act sheyla B-D UF III MINI PEN NEEDLES 31G X 5 MM Misc 07/03/2024 Active rosuvastatin (CRESTOR) 20 MG tablet Take 1 tablet (20 mg total) by mouth daily. Active Active Problems Problem Noted Date Diagnosed Date Infection of prosthetic total hip joint, initial encounter 07/31/2024 Pain due to total hip replacement, initial encou nter 07/31/2024 Surgical wound infection 08/20/2021 Assessment & Plan (07/31/2024 3:33 PM CDT): Reviewed her previous studies showing the hemiarthroplasty from a fall, and she had a washout that required antibiotics, and then she finally went to someone else that gave her antibiotics to get rid of the infection.My assumption is that this probably has a low-grade infection now, which has led to significant acetabular wear and protrusio. So, at this point in time, we cannot do that kind of revision arthroplasty here. I'll start the workup for infection with a Cetreate C-reactive protein CBC and a tagged white blood cell scan. If all of that comes back positive or somewhat positive, may consider interventional radiology to aspirate the hip joint. She's had one in the past that was negative, and that was prior to the washout that she had in 2021, August of 2021. At this point in time, she does not want to go to [place], she would much rather go to [place]--so we will try to get her, seen if we can find someone that does revision arthroplasties up in [place] . Encounters Date Type Department Care Team Description 08/22/2024 Results Follow-Up [facility] Orthopedic Surgery - [place] [address] [facility] [address] [place] [address] Vianey Munroe RN NM WBC SCAN WHOLE BODY 08/16/2024 7:09 AM CDT - 08/16/2024 11:59 PM CDT Hospital Encounter [facility] Nuclear Medicine [address] [place] [address] Ghassan Guevara DO Discharge Disposition: Home or Self Care (Routine Discharge) 08/16/2024 Travel 07/30/2024 2:24 PM CDT - 07/30/2024 11:59 PM CDT Hospital Encounter [facility] Laboratory [address] [place] [address] Ghassan Guevara DO Discharge Disposition: Home or Self Care (Routine Discharge) 07/30/2024 2:00 PM CDT Office Visit [facility] Orthopedic Surgery [facility] [address] [address] Ghassan Guevara DO Hip Pain (Right Hip Pain, Discuss Surgery/Hx Right Hip Hilario-Arthroplasty 04/21/21/Hx Right Hip I&D 08/20/21 (Leb)) 07/30/2024 12:39 PM CDT - 07/30/2024 2:23 PM CDT Hospital Encounter [facility] Diagnostic Imaging [address] [place] [address] Ghassan Guevara DO Discharge Disposition: Home or Self Care (Routine Discharge) 07/30/2024 Travel 07/27/2024 Orders Only [facility] [address] [address] Ghassan Guevara DO from Last 3 Months Family History Medical History Relation Comments Osteoarthritis Mother Osteoarthritis Sister Relation Status Comments Mother Sister Social History Tobacco Use Types Packs/Day Years Used Date Smoking Tobacco: Never Smokeless Tobacco: Never Tobacco Cessation:Counseling Given: No Alcohol Use Standard Drinks/Week Comments Never 0 (1 standard drink = 0.6 oz pur e alcohol) PHQ-2 Answer Date Recorded Patient Health Questionnaire-2 Score 0 07/30/2024 Comments No Sex and Gender Information Value Date Recorded Sex Assigned at Female 07/30/2024 1:18 PM CDT Legal Sex Female 3:23 PM CDT Gender Identity Female 07/30/2024 1:18 PM CDT Sexual Orientation Straight 07/30/2024 1: 18 PM CDT Last Filed Vital Signs Vital Sign Reading Time Taken Comments Blood Pressure 135/78 07/30/2024 1:18 PM CDT Pulse 74 07/30/2024 1:18 PM CDT Temperature 36.6 C (97.9 F) 07/30/2024 1:18 PM CDT Respiratory Rate 16 08/24/2021 11:14 AM CDT Oxygen Saturation 98% 07/30/2024 1:18 PM CDT Inhaled Oxygen Concentration - - Weight 74.1 kg (163 lb 5.8 oz) 08/24/2021 4:18 A M CDT Height 162.6 cm (5' 4 ) 08/20/2021 10:00 AM CDT Body Mass Index 28.04 08/20/2021 10:00 AM CDT Plan of Treatment Health Maintenance Due Date Last Done Comments Colorectal Cancer Screening Colonoscopy (10 Years) 1952 Hepatitis C 1970 Mammogram Screening 1992 Pneumococcal Vaccine: 50+ Years (1 of 1 - PCV) 2002 Zoster Vaccines (1 of 2) 2002 Annual Medicare Wellness Visit 2017 Dexa Scan (General) 2017 COVID-19 Vaccine (4 - 2023-2 5 season) 2024 03/31/2021, 09/25/2020, 09/04/2020 RSV Immunization or 60+ Years (1 - 1-dose 75+ series) 11/09/2027 DTaP, Tdap and Td Vaccines ( 2 - Td or Tdap) 04/20/2031 04/20/2021 PHQ-2 (Physician [place]) Completed 07/30/2024 Meningococcal B Vaccine Aged Out No l onger eligible based on patient's age to complete this topic Meningococcal Vaccine Aged Out No isabel nafisa eligible based on patient's age to complete this topic RSV Immunizations Under 20 Months Aged Out No longer eligible b ased on patient's age to complete this topic Procedures Procedure Name Priority Date/Time Associated Diagnosis Comments NM WBC SCAN WHOLE BODY Routine 08/16/2024 2:19 PM CDT Surgical wound infection Pain due to total hip replacement, initial encounter Infection of prosthetic total hip joint, initial encounter CBC W/DIFF AUTOMATED STAT 07/30/2024 2:29 PM CDT Surgical wound infection Pain due to total hip replacement, initial encounter Infection of prosthetic total hip joint, initial encounter SED RATE, ERYTHROCYTE (ESR) STAT 07/30/2024 2:29 PM CDT Surgical wound infection Pain due to total hip replacement, initial encounter Infection of prosthetic total hip joint, initial encounter C-REACTIVE PROTEIN STAT 07/30/2024 2: 29 PM CDT Surgical wound infection Pain due to total hip replacement, initial encounter Infection of prosthetic total hip joint, initial encounter XR HIP RT 2V Routine 07/30/2024 12:53 PM CDT Chronic right hip pain from Last 3 Months Results * NM WBC SCAN WHOLE BODY (08/16/2024 2:19 PM CDT) Anatomical Region Laterality Modality Body Nuclear Medicine 08/17/2024 2:07 PM CDT Impressions 08/17/2024 2:17 PM CDT IMPRESSION: 1. No focal or intense accumulation of radiolabeled leukocytes to definitively suggest a white blood cell mediated infection. 2. Activity within the proximal right femur appears similar in intensity to the contralateral left femur and bone marrow activity elsewhere. Right femoral activity is slightly longer in extent than the left, favored to be related to the arthroplasty placement on the right. Ordered By: GHASSAN GUEVARA Interpreted By: Saumya Ward MD, 08/17/2024 2:07 PM Narrative 08/17/2024 2:17 PM CDT [facility] [address] [place] [address] EXAMINATION: LEUKOCYTE SCINTIGRAPHY WHOLE BODY DATE STARTED: 08/16/2024 DATE COMPLETED: 08/17/2024 RADIOPHARMACEUTICAL: 13.7 mCi Tc-99m labeled autologous leukocytes i.v. HISTORY: Painful right hip arthroplasty. Right hip hemiarthroplasty after a fall in April 2021. Patient has had a previous surgical wound infection with previous right hip irrigation and debridement in 2021 and 2022. COMPARISON: X-ray right hip 07/30/2024 FINDINGS: Images were obtained at 2 1/2 hours and 24 hours postinjection. Whole- body images were obtained as well as dedicated anterior, posterior, and lateral views of the pelvis. There is an expected biodistribution of radiolabeled leukocytes throughout the reticuloendothelial system. Low-level activity along the proximal right femur appears similar in intensity to the contralateral left femur and bone marrow activity elsewhere. There is a photopenic defect from a right hip arthroplasty. The activity on the right extends slightly longer down the femoral diaphysis, likely secondary to the right hip arthroplasty. No abnormal focal or intense accumulation of radiolabeled leukocytes to definitively suggest a white blood cell mediated infection. Procedure Note Saumya Ward MD - 08/17/2024 [facility] [address] [place] [address] EXAMINATION: LEUKOCYTE SCINTIGRAPHY WHOLE BODY DATE STARTED: 08/16/2024 DATE COMPLETED: 08/17/2024 RADIOPHARMACEUTICAL: 13.7 mCi Tc-99m labeled autologous leukocytes i.v. HISTORY: Painful right hip arthroplasty. Right hip hemiarthroplasty aftera fall in April 2021. Patient has had a previous surgical woundinfection with previous right hip irrigation and debridement in 2021 [id number]. COMPARISON: X-ray right hip 07/30/2024 FINDINGS: Images were obtained at 2 1/2 hours and 24 hours postinjection.Whole- body images were obtained as well as dedicated anterior, posterior,and lateral views of the pelvis. There is an expected biodistribution of radiolabeled leukocytes throughoutthe reticuloendothelial system. Low-level activity along the proximalright femur appears similar in intensity to the contralateral left femurand bone marrow activity elsewhere. There is a photopenic defect from aright hip arthroplasty. The activity on the right extends slightly longerdown the femoral diaphysis, likely secondary to the right hiparthroplasty. No abnormal focal or intense accumulation of radiolabeledleukocytes to definitively suggest a white blood cell mediated infection. IMPRESSION: 1. No focal or intense accumulation of radiolabeled leukocytes todefinitively suggest a white blood cell mediated infection. 2. Activity within the proximal right femur appears similar in intensityto the contralateral left femur and bone marrow activity elsewhere. Rightfemoral activity is slightly longer in extent than the left, favored to berelated to the arthroplasty placement on the right. Ordered By: GHASSAN GUEVARA Interpreted By: Saumya Ward MD, 08/17/2024 2:07 PM Ghassan Guevara DO NUC MED Final Result * (ABNORMAL) SED RATE, ERYTHROCYTE (ESR) (07/30/2024 2:29 PM CDT) ESR 30(H) 0 - 20 MM/HR 07/30/2024 2:43 PM CDT [facility] 07/30/2024 2:29 PM CDT Ghassan Guevara DO LABORATORY Final Result [facility] [address] [place] [address], [place] [phone] * (ABNORMAL) C-REACTIVE PROTEIN (07/30/2024 2:29 PM CDT) Pathologist [facility] C-REACTIVE PROTEIN 0.64(H) <0.29 mg/dL 07/30/2024 7:[address] [facility] 07/30/2024 2:29 PM CDT Ghassan Guevara DO LABORATORY Final Result [facility] [address] [place] [address], [place] [phone] * (ABNORMAL) CBC W/DIFF AUTOMATED (07/30/2024 2:29 PM CDT) WBC 7.96 4.4 - 11.0 x10'3/uL 07/30/2024 2:39 PM CDT [facility] RBC 5.32(H) 4.50 - 5.10 x10'6/uL 07/30/2024 2:39 PM CDT [facility] HGB 12.4 12.3 - 15.3 G/DL 07/30/2024 2:39 PM T [facility] HCT 41.0 35.9 - 44.6 % 07/30/2024 2:39 PM T [facility] MCV 77.1(L) 80.0 - 96.0 FL 07/30/2024 2:39 PM CDT [facility] MCH 23.3(L) 25.3 - 30.9 PG 07/30/2024 2:39 PM T [facility] MCHC 30.2(L) 31.0 - 34.1 G/DL 07/30/2024 2:39 PM T [facility] RDW 16.9(H) 12.4 - 15.1 % 07/30/2024 2:39 PM T [facility] PLT 311 151 - 353 x10'3/uL 07/30/2024 2:39 PM T [facility] MPV 8.5(L) 9.6 - 12.0 FL 07/30/2024 2:[address] [facility] RBC MORPHOLOGY NORMAL 07/30/2024 2:39 PM T [facility] PLT MORPH. NORMAL 07/30/2024 2:39 PM T [facility] WBC MORPHOLOGY NORMAL 07/30/2024 2:39 PM T [facility] LYMPHOCYTES % 25.6 15.8 - 45.0 % 07/30/2024 2:39 PM T [facility] NEUTROPHILS % 65.9 42.1 - 71.9 % 07/30/2024 2:39 PM T [facility] MONOCYTES % 4.6(L) 5.7 - 12.5 % 07/30/2024 2:39 PM CDT [facility] EOSINOPHILS 2.0 0.0 - 5.6 % 07/30/2024 2:39 PM CDT [facility] BASOPHILS 0.4 0.0 - 1.3 % 07/30/2024 2:39 PM CDT [facility] ABS. NEUTROPHILS 5.24 1.40 - 6.00 x10'3/uL 07/30/2024 2:39 PM CDT [facility] IMMATURE GRANS % 1.5(H) 0.0 - 0.5 % 07/30/2024 2:39 PM CDT [facility] ABS. LYMPHOCYTES 2.04 0.80 - 4.70 x10'3/uL 07/30/2024 2:39 PM CDT [facility] 07/30/2024 2:29 PM CDT us Ghassan Guevara DO LABORATORY Final Result [facility] [address] [id number], * XR HIP RT 2V (07/30/2024 12:53 PM CDT) Anatomical Region Laterality Modality Hip Radiographic Daiana ging 07/30/2024 2:41 PM CDT Impressions 07/30/2024 2:43 PM CDT IMPRESSION: 1. No acute findings. Hip prosthesis is intact Ordered By: GHASSAN GUEVARA Interpreted By: Krissy Guillermo, 07/30/2024 2:41 PM Narrative 07/30/2024 2:43 PM CDT [facility] [address] [facility] [place] [address] IMAGING STUDIES: XR HIP RT 2V DATE: 07/30/2024 12:40 PM CLINICAL HISTORY: right hip pain . COMPARISON: August 20, 2021 FINDINGS: 1. There is no evidence of acute fracture or dislocation. Osteopenia limits exam. Hip prosthesis is intact. 2. Mild degenerative change of the partially visualized right sacroiliac joint.. . Phleboliths in the pelvis. Calcified 2.6 cm fibroid in the pelvis. Procedure Note Jono Guillermo MD - 07/30/2024 [facility] [address] [place] [address] IMAGING STUDIES: XR HIP RT 2VDATE: 07/30/2024 12:40 PM CLINICAL HISTORY: right hip pain . COMPARISON: August 20, 2021 FINDINGS: 1. There is no evidence of acute fracture or dislocation. Osteopenialimits exam. Hip prosthesis is intact. 2. Mild degenerative change of the partially visualized right sacroiliacjoint.. . Phleboliths in the pelvis. Calcified 2.6 cm fibroid in the pelvis. IMPRESSION: 1. No acute findings. Hip prosthesis is intact Ordered By: GHASSAN GUEVARA Interpreted By: Krissy Guillermo, 07/30/2024 2:41 PM Ghassan Guevara DO GENERAL IMAGING Final Result from Last 3 Months Insurance [facility] Advance Directives Documents on File Type Date Recorded Patient Lift Supervisor Expl anation Legal Documents 04/21/2022 10:03 AM COMPL ETED ATTNY REQ * Full Code (Latest Code Status on File) Date Activated Date Inactivated Comments 08/20/2021 10:15 AM 08/24/2021 6:37 PM Care Teams All Source Collection Manager Relationship Specialty Start Date End Date Tom Ocampo MD [address] [place] [address] PCP - General FAMILY PRACTICE 08/19/21
--- OUTSIDE RECORDS SUMMARY | 2024-09-19 10:55 | XMS_ITS | Encounter Summary ---
Author Organization [facility] Address [facility] [place] [address] Care Team Providers Care Credit Negotiator Name Role Phone Tom Ocampo MD Primary Care Provider [phone] Encounter Details Date Type Department Care Team (Late st Contact Info) Description 08/22/2024 Results Follow-Up [facility] Orthopedic Surgery - [place] [address] [address] [place] [address] Vianey Munroe RN NM WBC SCAN WHOLE BODY Social History Tobacco Use Types Packs/Day Years Used Date Smoking Tobacco: Never Smokeless Tobacco: Never Alcohol Use Standard Drinks/Week Comments Never 0 [...] Orientation Straight 07/30/2024 1: 18 PM CDT documented as of this encounter Functional Status * RETIRED Are you deaf or do you have serious difficulty hearing Answer Date of Assessment Author Status No 08/24/2021 3:17 PM CDT Activ e * RETIRED Are you blind or do you have serious difficulty seeing, even when wearing glasses? Answer Date of Assessment Author Status No 08/24/2021 3:17 PM CDT Activ e * Do you have serious difficulty walking or climbing stairs? Answer Date of Assessment Author Status Yes 08/24/2021 3:17 PM CDT Jen Riley RN Active * Do you have difficulty dressing or bathing? Answer Date of Assessment Author Status Yes 08/24/2021 3:17 PM CDT Jen Riley RN Active * Because of a physical, mental, or emotional condition, do you have difficulty doing errands alone such as visiting a doctor's office or shopping? Answer Date of Assessment Author Status Yes 08/24/2021 3:17 PM Jen Ramos RN Active documented as of this encounter Mental Status * Because of a physical, mental, or emotional condition, do you have serious difficulty concentrating, remembering, or making decisions? Answer Entry Date Author Status No 08/24/2021 3:17 PM CDT Jen Riley RN Active documented in this encounter Plan of Treatment Not on file documented as of this encounter Visit Diagnoses Not on filedocumented in this encounter Additional Health Concerns Assessment Noted Time PHQ-9 Depression Total Score: 2 07/31/19 25 1:25 PM CDT documented as of this encounter Care Teams Credit Negotiator Relationship Specialty Start Date End Date Tom Ocampo MD [address] [address] PCP - General FAMILY PRACTICE 08/19/21 documented as of this encounter
[2024-09-19 11:24] LABS: Erythrocyte Sedimentation Rate 25 mm/hr (0-20)
[2024-09-19 11:52] LABS: CRP 0.9 mg/dL (<1.0)
== END 2024-09-19 10:36 | disposition home or self-care (01) ==
PROVIDERS: PCP Family Medicine
DX: T84.89XA Other specified complication of internal orthopedic prosthetic devices, implants and grafts, initial encounter (principal); X58.XXXA Exposure to other specified factors, initial encounter
CPT/HCPCS: 36415; 85652; 86140

== ENCOUNTER 2024-11-15 14:35 | Outpatient (CLI) | payer MEDICARE, SELFPAY ==
--- NOTE | 2024-11-15 14:37 | ECG_ITS ---
Test Date: 2024-11-15 15:28:09 Measurements Intervals [place] Rate: 78 P: 47 AR: 141 QRS: -33 QRSD: 142 T: 144 QT: 417 QTc: 477 Interpretive Statements SINUS RHYTHM POSSIBLE LEFT ATRIAL ENLARGEMENT [-0.1mV P-WAVE IN V1/V2] LEFT AXIS DEVIATION [QRS AXIS < -30] LEFT BUNDLE BRANCH BLOCK [120+ ms QRS DURATION, 80+ ms Q/S IN V1/V2, 85+ ms R IN I/aVL/V5/V6] No previous ECG available for comparison Electronically Signed On 11-16-2024 07:14:26 CDT by Simon Conway M.D.
--- OUTSIDE RECORDS SUMMARY | 2024-11-15 14:38 | XMS_ITS | Clinical Summary ---
Author Organization [facility] Address [address] [place] [address] Care Team Providers Care Lock Maintenance Supervisor Name Role Phone Tom Ocampo MD Primary Care Provider [phone] Source Comments [facility],non-owned Affiliates and Associated Physician Practices is amultiple site organization consisting of ambulatory clinics and hospital sitesin [place], [place], [place] and [place]. This disclosure is being madepursuant to the Care Everywhere program and may not contain all information available regarding this patient. Last updated 18.[facility] Allergies Active Allergy Reactions Criticality Noted Date [...] 11:16 AM CDT Height 163.8 cm (5' 4.5) 02/21/2023 11:16 AM CD T Body Mass Index 29.24 02/21/2023 11:16 AM CDT Plan of Treatment Health Maintenance Due Date Last Done Comments BONE DENSITY TESTING 1950 COLOGUARD (AGES 45-75) - COLON CA SCREENING 1950 COLON MONITORING 1950 COLONOSCOPY [...] VACCINE (1 of 2) 2002 COVID-19 VACCINE (1 - season) 2024 DEPRESSION SCREENING 05/09/2024 MEDICARE AWV CALENDAR YEAR 2024 INFLUENZA VACCINE (#1) 2025 SCREENING FOR DIABETES 02/24/2026 , 02/24/2023, 02/24/2023, Additional history exists Respiratory Syncytial Virus (RSV) Vaccine Pt: or [...] A/C/Y/W VACCINE Aged Out No longer eligible based on patient's age to complete this topic Procedures Procedure Name Priority Date/Time Associated Diagnosis Comments GLUCOSE - POINT OF CARE Routine 02/24/2023 12:34 PM CDT from Last 3 Months or Most Recently Relevant to Health Maintenance Results * (ABNORMAL) GLUCOSE - POINT OF CARE (02/24/2023 12:34 PM CDT) [facility] Glucose WB/POC 368(H) 70 - 106 mg/dL 02/24/2023 12:43 PM CDT [facility] Specimen Type Arterial 02/24/2023 12:43 PM CDT [facility] Blood BLOOD SPECIMEN / Unknown 02/24/2023 12:34 PM CDT 02/24/2023 12:43 PM CDT Vishal Cosme MD LAB - POINT OF CARE ORDERAB LES Final Result Performing Organization Address City/State/[facility] Co de Phone Number [facility] [address] [place] [address] from Last 3 Months or Most Recently Relevant to Health Maintenance Insurance HUMAN MEDICARE ADV HMO & PPO HUMANA MEDICARE ADV HMO & PPO Care Teams Lock Maintenance Supervisor Relationship Specialty Start Date End Date Tom Ocampo MD [address] [place] [address] PCP - General Family Medicine 02/02/23
--- OUTSIDE RECORDS SUMMARY | 2024-11-15 14:38 | XMS_ITS | Clinical Summary ---
Author Organization [facility] Address [address] [place] [address] Care Team Providers Care Sider Name Role Phone Tom Ocampo MD Primary Care Provider [phone] Allergies Active Allergy Reactions Criticality Noted Date [...] she does not want to go to [place], she would much rather go to [place]--so we will try to get her, seen if we can find someone that does revision arthroplasties up in [place] . Encounters Date Type Department Care Team Description 08/22/2024 Results Follow-Up [facility] Orthopedic Surgery - [place] [address] [facility] [address] [place] [address] Vianey Munroe RN NM WBC SCAN WHOLE BODY 08/16/2024 7:09 AM CDT - 08/16/2024 11:59 PM CDT Hospital Encounter [facility] Nuclear Medicine [address] [place] [address] Ghassan Guevara, Discharge Disposition: Home or Self Care (Routine Discharge) 08/16/2024 Travel from Last 3 Months Family History Medical [...] A M CDT Height 162.6 cm (5' 4) 08/20/2021 10:00 AM CDT Body Mass Index [...] Td or Tdap) 04/20/2031 04/20/2021 PHQ-2 (Physician [place]) Completed 07/30/2024 Meningococcal B Vaccine Aged Out [...] of prosthetic total hip joint, initial encounter from Last 3 Months Results * NM [...] Ordered By: GHASSAN GUEVARA Interpreted By: Saumya Wrad MD, 08/17/2024 2:07 PM Narrative 08/17/2024 2:[address] [facility] [address] [address] [place] [address] EXAMINATION: LEUKOCYTE SCINTIGRAPHY WHOLE BODY DATE STARTED: [...] Procedure Note Saumya Ward MD - 08/17/2024 [facility] [address] [place] [address] EXAMINATION: LEUKOCYTE SCINTIGRAPHY WHOLE BODY DATE STARTED: 08/16/2024 DATE COMPLETED: 08/17/2024 RADIOPHARMACEUTICAL: 13.7 mCi Tc-99m labeled autologous leukocytes i.v. HISTORY: Painful right hip arthroplasty. Right hip hemiarthroplasty aftera fall in April 2021. Patient has had a previous surgical woundinfection with previous right hip irrigation and debridement in 2021 [id number]. COMPARISON: X-ray right hip 07/30/2024 FINDINGS: Images [...] in extent than the left, favored to lobitoted to the arthroplasty placement on the right. Ordered By: GHASSAN GUEVARA Interpreted By: Saumya Ward MD, 08/17/2024 2:07 PM us Ghassan Ismael DO [facility] Final Result from Last 3 Months Insurance HUMANA Advance Directives Documents on File Type Date Recorded Patient Switch Repairer Expl anation Legal Documents 04/21/2022 10:03 AM COMPL ETED ATTNY REQ * Full Code (Latest Code Status on File) Date Activated Date Inactivated Comments 08/20/2021 10:15 AM 08/24/2021 6:37 PM Care Teams Sider Relationship Specialty Start Date End Date Tom Ocampo MD [address] [place], [place] [id number] PCP - General FAMILY PRACTICE 08/19/21
--- OUTSIDE RECORDS SUMMARY | 2024-11-15 14:38 | XMS_ITS | Continuity of Care Document ---
Author Organization [facility] Address [address] [place] [address] [place] [address] Phone Care Team Providers Care University Dean Name Role Phone Gonzalez OD, Miguel Unavailable Unavailable Procedures Procedure Date Eye Exam & Treatment Refraction Advance Directives Directive Yes / No Effective Date File Name No Information Encounters Encounter Description Practice Location Reason(s) For Visit Diagnoses Date Provider Providers Copied on Encounter [facility], [address] [place] [address] [address], [place], [place], [id number], [place] tel:[phone] [facility] No Information 1 0 Gonzalez OD Miguel. [address] , [address], [place], [address], [place]. tel:[phone] Referring Provider: Ryan Del Rio MD, [address], [place], [address]. tel:[phone] Family History Family Member Type Diagnosis Age At Onset No Information Payers Payer name Insurance type Covered alliance party ID Authoriza tion(s) [employer] SOI CI [id number] Social History Type Description Quantity Date Captured [...]
--- OUTSIDE RECORDS SUMMARY | 2024-11-15 14:38 | XMS_ITS | Data Portability ---
Author Organization [place] [facility] Main Office Address [address] [place] [address] Care Team Providers Care Sleeve Wheel Maker Name Role Phone JUAQUIN OCAMPO Primary Care Provider [phone] JUAQUIN OCAMPO Referring Provider [phone] Assessment Encounter Date Assessment Date Assessment LastModified [...] and recommended that she be seen at [facility] for a tertiary care evaluation. That referral was made but when [facility] scheduling called her she told them that she would not travel to [place]. I have discussed with her that there are 2 orthopedic surgeons at [facility] that exclusively due the posterior approach that [...] with an infectious disease specialist is recommended. [facility] would be an ideal program [...] was agreeable to being referred again to [facility] for management of her [...] differential. We will continue with referral to [facility] for definitive treatment. her markedly elevated hemoglobin A1c 1 month ago coinciding approximately with the development possible impending sinus tract is worrisome for low-grade indolent infection. 60 minutes of total care was spent on this patient with more than half of the time spent in [id number] care. Not available 01/02/2023 14:11:19 06/13/2023 06/13/2023 [...] pelvis, unilateral 2022 023 [email or web address] [facility], [address], [place], [address], 11:17:20 Medication Orders None recorded. Patient TargetsNo targets recorded. Patient InstructionsNo instructions recorded. Reason for Referral None Reported. Results Created Date Observation Date Name Description Value Unit Range Abnormal Flag Note LastModifiedBy Organization Detail LastModifiedTime 01/01/20 23 XR, hip + pelvi s, unila teral No observ ation record ed. [facility] [address], [place], [address], 01/02/2023 13:41:51 01/12/20 23 01/11/2023 joint aspir ation (PROC ) No observ ation record ed. [email or web address] [place] [address] [address], [place], [address], 01/12/2023 12:56:01 Result Notes None recorded. Problems Name Problem SNOMED Code Status Onset Date Resolution Date Notes Provider Name and Address Organization Details Recorded Time Pain of right hip joint 719370971190977 Active 2022 [facility] 3 11:58:51 Problem Notes None recorded. Procedures Surgical History Date Name Laterality Status Provider Name and Address Organization Details Recorded Time 02/06/19 82 cholecystectomy completed Elizabeth Dai [facility] 12/31/2022 11:58:21 Imaging Results None recorded. Procedure Notes None recorded. Medical Equipment None Reported. Allergies Allergen ID Allergen Name Allergen Category Reaction Reaction Severity Criticality Documentation Date Start Date Code Code System Note Provider Name and Address Organization Details Recorded Time 44251 lisinopri l medicatio n Not available Not available Not available 12/31/2022 39896 RxNorm very sick [facility] 3 11:55:01 00098 tramadol medicatio n Not available Not available Not available 12/31/2022 47755 RxNorm very sick [facility] 3 11:55:16 Medications Name Sig Start Date Stop [...] Not Available Not Available FreeStyle Bernardo [address] [place] USE DIRECTED active Not Available Not Available No t Available Trulicity 3 mg/0.5 mL subcutaneou s pen injector 12/31 completed Not Available Not Available Not Available Trulicity 4.5 mg/0.5 mL subcutaneou s pen injector 12/31 completed Not Available Not Available Not Available Vitals Date Recorded Body height Provider Name an d Address Organization Details Last Updated DateTime 06/13/2023 163.83 cm [facility] 06/13/2023 14:03:35 Date Recorded Body height Body mass index (BMI) Body weight Provider Name and Address Organization Details Last Updated DateTime 12/31/2022 163.83 cm 28.1 kg/m2 55752.33 g [facility] 12/31/2022 12:19:45 Social History None recorded. Functional Status Question [...] SNOMED-CT Code Diagnosis ICD10 Code Diagnosis Note [id number] Edward Mcmahon MD [facility] [address] [place] [address] 12/31/2022 10:49:53 01/03/2023 11:17:20 Pain of right hip joint [id number] 38298 M25.991 [id number] Edward Mcmahon MD [facility] [address] [place] [address] 06/13/2023 13:56:47 06/27/2023 12:23:10 Pain of right hip joint 2838487709 56828 M25.551 M25.451 Z96.60 Health Concerns Section Related Observation LastModified by Organization Detai ls LastModified Time None Recorded Concern Status LastModified by Organization Details LastModified Time None Recorded Advance Directives Directive None Recorded Payers Insurance Date Sequence Insurance Name Policy Number Policy Arita Covered Member ID Arita Member ID Guarantor Name 06/10/2023 1 RISHABHA Brook Hansen [id number] Brook Hansen 06/28/2023 HU[employer]NA (MEDICARE REPLACEMENT/A DVANTAGE - PPO) Brook Hansen [id number] Brook Hansen Notes Date Note Type Note Provider Name and Address Organization Details Recorded Time 12/31/2022 text/html patient is a 72-year-old female referred by Dr. Ocampo for evaluation of her right hip. She underwent bipolar hemiarthroplasty to treat a subcapital displaced femoral neck fracture on April 2021 at [facility] by Dr. Huang. at 4 weeks after [...] intraoperatively. I reviewed this operative note from [facility] also. The She states that ever since [...] has not drained however. Edward Mcmahon MD [address] [place] [address], [place] [address], [place], [address], [place] [facility] [employer] 01/02/2023 21:59:33 06/13/2023 text/html patient returns. She [...] sinus. She did see Dr. Cosme at [facility] and he advised her that [...] but she is unsure about the results. Edwadr Mcmahon MD [address] [address], [place], [address], [place] [facility] [place] [employer] [facility] 06/25/2023 13:57:42 OBGyn Episode No OBEpisode recorded.
[2024-11-15 15:25] LABS: Hematocrit 38.0 % (37.0-47.0); Hemoglobin 11.3 g/dL (12.0-15.0); Immature Granulocyte Percent A 0.6 % (0-0.5); Lymphocytes Absolute Auto 1.43 K/mm3 (0.9-3.2); Mean Corpuscular HGB Conc 29.7 g/dl (32-36); Mean Corpuscular Hemoglobin 23.4 pg (26-34); Mean Corpuscular Volume 78.7 fl (80-100); Nucleated Red Blood Cells Absolute Auto 0.000 K/mm3 (0.0-0.012); Nucleated Red Blood Cells Perc 0.0 % (0.0-0.2); Platelet Count Result 300 k/mm3 (150-375); Red Blood Count 4.83 M/mm3 (4.2-5.4); White Blood Count 8.3 K/mm3 (4.5-10.0)
[2024-11-15 15:43] LABS: Alanine Aminotransferase 17 U/L (6-35); Albumin Level 4.0 g/dL (3.5-5.1); Alkaline Phosphatase 144 U/L (38-126); Anion Gap 8 mmol/L (4-12); Aspartate Amino Transferase 25 U/L (14-36); Bilirubin,Total 0.6 mg/dL (0.2-1.3); Blood Urea Nitrogen 15 mg/dL (7-17); Calcium 9.6 mg/dL (8.4-10.2); Carbon Dioxide 30 mmol/L (22-30); Chloride 102 mmol/L (98-107); Estimated Glomerular Filt Rate > 60; Glucose 203 mg/dL (65-110); Potassium 4.0 mmol/L (3.4-5.0); Sodium 140 mmol/L (137-145); Total Protein 7.7 g/dL (6.3-8.2)
[2024-11-15 15:49] LABS: Hypochromasia 1+
[2024-11-15 15:50] LABS: Microcytosis 1+ (NORMAL)
== END 2024-11-15 14:36 | disposition home or self-care (01) ==
PROVIDERS: PCP Family Medicine; Visit Provider Family Medicine
DX: Z01.818 Encounter for other preprocedural examination (principal); E11.40 Type 2 diabetes mellitus with diabetic neuropathy, unspecified; E78.2 Mixed hyperlipidemia; T84.59XS Infection and inflammatory reaction due to other internal joint prosthesis, sequela; Z96.649 Presence of unspecified artificial hip joint; M16.11 Unilateral primary osteoarthritis, right hip; R53.83 Other fatigue
CPT/HCPCS: 36415; 80053; 85025; 93005

== ENCOUNTER 2024-11-21 09:59 | Outpatient (RCR) | payer MEDICARE, SELFPAY ==
--- NOTE | 2024-11-21 11:10 | PTOPEVAL1 ---
Assessment and note entered by Mere Barney, PT Evaluation Information Assessment Status Evaluation ICD-10 Condition Codes (PT) Pain in right hip M25.551,Difficulty Walking R26.2 ,Abnormalities of gait and mobility R26.9,Weakness R53.1 Other ICD-10 Condition Codes ( complication internal ortho device T 84.89XA; PT) loosening of R hip jt T84.030A Onset about 1 year Subjective Information using the cane for walking;only able to walk room/ room at home; have w/c for going out places; have a wheeled walker, but do not use it; cannot stand long enough to do any cooking or chores; significant other, Vinay does all the home chores. cannot lift her R leg, have to have help getting into bed and car. not sure why she is here, not going to do any exercises because hip hurts too much; is scheduled for R THR December 04. Reported Pain Level Pain Score Self Report Additional Pain Score Comments pain range in the past week 8-12+/10; decrease pain: sit,rest, motrin Assessment PT Clinical Summary Brook is scheduled to have R THR on December 04-- orders for therapy prior to surgery and resume 2 days post op. She reports pain range of 8-12+/10 in her R hip, refused to do any supine exercises or hip motions and did not want to come in for therapy before her surgery. She is using a wheelchair for mobility, ambulated with a small based quad cane in front of her and holding with both hands, 5 steps then sat due to hip pain. She refused to use a wheeled walker. Discussion at length with her about importance of exercises, moving her R LE and increasing her strength for better post op results. Educated and issued her a HEP with sitting hip isometrics, active knee and ankle motions. She did agree to return for post op therapy and those appointments were made. HOLD PT, resume therapy post R THR. Plan of Care PT Services Indicated Yes Treatment Frequency and HOLD PT until post op R THR; will establish goals Duration at that time; 2x/wk for 9 visit total These treatments will address the objective and functional deficits as defined above. The patient will be advanced safely and appropriately in order for the patient to progress towards his/her prior level of function. Additional exercises will be introduced and as well as a comprehensive home exercise program upon discharge, if needed, ?to ensure carryover of functional gains achieved in the clinic. This treatment plan has been reviewed and agreement upon by the patient.
--- NOTE | 2024-11-21 14:10 | PCPTNOTE ---
pt was offered an appointment time on Dec, she did not want that time, was too early. Scheduled to return for PT after surgery, on Dec 10.
--- NOTE | 2024-12-12 09:29 | OPREHPOC ---
Outpatient Therapy Plan of Care This is a Multidisciplinary Plan of Care that may contain components documented by all disciplines (PT, OT, and ST.)
--- NOTE | 2024-12-12 09:29 | PTOPDC ---
Assessment and note entered by Mere Barney, PT Assessment Status Discharge - Pt Not Present ICD-10 Condition Codes (PT) Pain in right hip M25.551,Difficulty Walking R26.2 ,Abnormalities of gait and mobility R26.9,Weakness R53.1 Other ICD-10 Condition Codes ( complication internal ortho device T 84.89XA; PT) loosening of R hip jt T84.030A Onset about 1 year Subjective Information pt called and canceled therapy. Assessment PT Clinical Summary Brook received the PT evaluation on November 21 for pre op R THR. She called on December 06 and canceled all PT appointments. Discharge PT per pt request. The goals were not assessed. Plan of Care PT Services Indicated No
== END 2024-12-14 12:13 | disposition home or self-care (01) ==
LOC: ANHPT 09:59
PROVIDERS: PCP Family Medicine
DX: T84.89XA Other specified complication of internal orthopedic prosthetic devices, implants and grafts, initial encounter (principal); T84.030A Mechanical loosening of internal right hip prosthetic joint, initial encounter
CPT/HCPCS: 97110; 97161

== ENCOUNTER 2024-11-29 09:34 | Outpatient (CLI) | payer MEDICARE, SELFPAY ==
--- OUTSIDE RECORDS SUMMARY | 2024-11-29 09:39 | XMS_ITS | Clinical Summary ---
Author Organization [facility] Address [address] [place] [address] Care Team Providers Care Motor Route Carrier Name Role Phone Tom Ocampo MD Primary Care Provider [phone] Allergies Active Allergy Reactions Criticality Noted Date [...] she does not want to go to [place], she would much rather go to [place]--so we will try to get her, seen if we can find someone that does revision arthroplasties up in [place] . Family History Medical History Relation Comments Osteoarthritis [...] Td or Tdap) 04/20/2031 04/20/2021 PHQ-2 (Physician [place]) Completed 07/30/2024 Meningococcal B Vaccine Aged Out No l onger eligible based on patient's age to complete this topic Meningococcal Vaccine Aged Out No isabel nafisa eligible based on patient's age to complete this topic RSV Immunizations Under 20 Months Aged Out No longer eligible b ased on patient's age to complete this topic Insurance HUMANA Advance Directives Documents on File Type Date Recorded Patient Conference Services Coordinator Expl anation Legal Documents 04/21/2022 10:03 AM COMPL ETED ATTNY REQ * Full Code (Latest Code Status on File) Date Activated Date Inactivated Comments 08/20/2021 10:15 AM 08/24/2021 6:37 PM Care Teams Motor Route Carrier Relationship Specialty Start Date End Date Tom Ocampo MD [address] [place] [id number] PCP - General FAMILY PRACTICE 08/19/21
--- OUTSIDE RECORDS SUMMARY | 2024-11-29 09:39 | XMS_ITS | Clinical Summary ---
Author Organization [facility] Address [address] [place] [address] Care Team Providers Care Cost Accounting Analyst Name Role Phone Tom Ocampo MD Primary Care Provider [phone] Source Comments [facility],non-owned Affiliates and Associated Physician Practices is amultiple site organization consisting of ambulatory clinics and hospital sitesin [place], [place], [place] and [place]. This disclosure is being madepursuant to the Care Everywhere program and may not contain all information available regarding this patient. Last updated 18.[facility] [employer] Allergies Active Allergy Reactions Criticality Noted Date [...] POINT OF CARE (02/24/2023 12:34 PM CDT) [facility] Glucose WB/POC 368(H) 70 - 106 mg/dL 02/24/2023 12:[address] [facility] Specimen Type Arterial 02/24/2023 12:[address] [facility] Blood BLOOD SPECIMEN / Unknown 02/24/2023 12:34 PM CDT 02/24/2023 12:43 PM CDT Vishal Cosme MD LAB - POINT OF CARE ORDERAB LES Final Result Performing Organization Address City/State/[facility] Co de Phone Number [facility] [address] [place] [address] from Last 3 Months or Most Recently Relevant to Health Maintenance Insurance HUMAN MEDICARE ADV HMO & PPO HUMANA MEDICARE ADV HMO & PPO Care Teams Cost Accounting Analyst Relationship Specialty Start Date End Date Tom Ocampo MD [address] [place] [address] PCP - General Family Medicine 02/02/23
[2024-11-29 12:19] LABS: MRSA (PCR) NOT DETECTED (NOT DETECTE)
== END 2024-11-29 09:35 | disposition home or self-care (01) ==
PROVIDERS: PCP Family Medicine
DX: T84.030A Mechanical loosening of internal right hip prosthetic joint, initial encounter (principal); Z96.641 Presence of right artificial hip joint
CPT/HCPCS: 87641

== ENCOUNTER 2025-01-31 10:46 | Outpatient (CLI) | payer MEDICARE, SELFPAY ==
[2025-01-31 18:29] LABS: Hematocrit 39.3 % (37.0-47.0); Hemoglobin 11.6 g/dL (12.0-15.0); Immature Granulocyte Percent A 0.7 % (0-0.5); Lymphocytes Absolute Auto 1.47 K/mm3 (0.9-3.2); Mean Corpuscular HGB Conc 29.5 g/dl (32-36); Mean Corpuscular Hemoglobin 24.1 pg (26-34); Mean Corpuscular Volume 81.7 fl (80-100); Nucleated Red Blood Cells Absolute Auto 0.000 K/mm3 (0.0-0.012); Nucleated Red Blood Cells Perc 0.0 % (0.0-0.2); Platelet Count Result 334 k/mm3 (150-375); Red Blood Count 4.81 M/mm3 (4.2-5.4); White Blood Count 9.5 K/mm3 (4.5-10.0)
[2025-01-31 18:41] LABS: Alanine Aminotransferase 30 U/L (6-35); Albumin Level 4.0 g/dL (3.5-5.1); Alkaline Phosphatase 166 U/L (38-126); Anion Gap 7 mmol/L (4-12); Aspartate Amino Transferase 58 U/L (14-36); Bilirubin,Total 0.7 mg/dL (0.2-1.3); Blood Urea Nitrogen 20 mg/dL (7-17); Calcium 9.7 mg/dL (8.4-10.2); Carbon Dioxide 30 mmol/L (22-30); Chloride 100 mmol/L (98-107); Cholesterol 123 mg/dL (0-200); Estimated Glomerular Filt Rate > 60; Glucose 212 mg/dL (65-110); HDL Direct 37 mg/dL; Potassium 4.7 mmol/L (3.4-5.0); Sodium 137 mmol/L (137-145); Total Protein 7.8 g/dL (6.3-8.2); Triglycerides 169 mg/dL (<150)
[2025-01-31 19:00] LABS: Burr Cells Occasional; Schistocytes None Seen
[2025-01-31 19:12] LABS: Thyroid Stimulating Hormone 4.650 uIU/mL (0.465-4.680)
== END 2025-01-31 10:47 | disposition home or self-care (01) ==
LOC: ANHBWCLAB 10:48
PROVIDERS: PCP Family Medicine; Visit Provider Nurse Practitioner Adult Health
DX: I48.0 Paroxysmal atrial fibrillation (principal); E78.2 Mixed hyperlipidemia; Z01.818 Encounter for other preprocedural examination; E11.40 Type 2 diabetes mellitus with diabetic neuropathy, unspecified; R07.89 Other chest pain; R20.0 Anesthesia of skin; R20.2 Paresthesia of skin
CPT/HCPCS: 36415; 80053; 80061; 84443; 85025

== ENCOUNTER 2025-03-13 06:23 | Inpatient (IN) | payer MEDICARE, SELFPAY ==
--- OUTSIDE RECORDS SUMMARY | 2009-06-19 06:30 | XMS_ITS | Continuity of Care Document ---
Author Organization [facility] Address [address] [place] [address] [place] [address] Phone Care Team Providers Care Bariatric Surgeon Name Role Phone Gonzalez OD, Miguel Unavailable Unavailable Procedures Procedure Date Eye Exam & Treatment Refraction Advance Directives Directive Yes / No Effective Date File Name No Information Encounters Encounter Description Practice Location Reason(s) For Visit Diagnoses Date Provider Providers Copied on Encounter [facility], [address] [place] [address] [address], [place], [place], [id number], [place] tel:[phone] SEC [facility] No Information 1 0 Gonzalez OD Miguel. [address] , [address], [place], [address], [place]. tel:[phone] Referring Provider: Ryan Del Rio MD, [address], [place], [address]. tel:[phone] Family History Family Member Type Diagnosis Age At Onset No Information Payers Payer name Insurance type Covered constitution party ID Authoriza tion(s) [employer] SOI CI [id number] Social History Type Description Quantity Date Captured Comments Sex Female Smoking Status No Information Chief Complaint And Reason For Visit No Information Reason For Referral Reason For Referral No Information History Of Present Illness Encounter Date Complaint History Of Prese nt Illness No Information Functional Status Date Functional Assessmen t No Information Instructions Date Instruction Additional Infor mation No Information Assessments Type Assessment Date No Information Patient Care Teams Name Effective Dates (start - stop) Status Members No Information
[2025-03-13] VITALS (19 sets, daily range): BP systolic 104–161; BP diastolic 54–104; PULSE 92–150; RESP 16–24; TEMP 36.4–36.8; O2SAT 93–100; BMI 26.4
--- NOTE | 2025-03-13 | ECHO_ITS ---
Patient Info Name: Brook Hansen Age: 74 years : 1950 Gender: Female Ht: 64 in Wt: 187 lbs BSA: 1.99 m2 BP: 125 / 70 mmHg Heart Rhythm: Atrial Fibrillation Technical Quality: Poor Exam Date: 03/13/2025 1:39 PM Patient Status: I Admit Date: 03/13/2025 Exam Type: CA echo dop color flow w con Complete two-dimensional, color flow and Doppler transthoracic echocardiogram is performed with contrast to opacify the left ventricle and to improve the deliniation of the left ventricle endocardial borders. Staff Referring Physician: Love Sapp Oyster Planter: Tian Jimenez III Attending Provider: Timur Hawkins Oca Contrast/Agitated Saline Contrast/Ag. Saline: Definity Amount: 2.00 ml Administered By: Tian Jimenez III Existing IV Access: Yes IV Access Condition: patent with no signs of infiltration Reason for Poor Study: poor echocardiographic windows Summary 1. Left ventricular chamber dimension is normal. 2. Left ventricular systolic function is normal, estimated at 55-60. 3. There is mildly increased left ventricular wall thickness. 4. The left ventricular diastolic function is abnormal. 5. Left atrial chamber dimension is moderately enlarged. 6. There is mild mitral valve regurgitation. 7. The mitral valve annulus is moderately calcified. 8. There is mild tricuspid valve regurgitation. 9. Moderate pulmonary hypertension, estimated pulmonary arterial systolic pressure is 52 mmHg. 10. There is mild pulmonic regurgitation. Left Ventricle Left ventricular chamber dimension is normal. Left ventricular systolic function is normal, estimated at 55-60. There is mildly increased left ventricular wall thickness. The left ventricular diastolic function is abnormal. Right Ventricle Right ventricular chamber dimension is normal. Right ventricular systolic function is normal. Left Atria Left atrial chamber dimension is moderately enlarged. Right Atria Right atrial chamber dimension is normal. Atrial Septum Intact interatrial septum visualized by color flow imaging. Aortic Valve The aortic valve is trileaflet. There is mild aortic valve sclerosis. There is no aortic valve stenosis. There is trace aortic valve regurgitation. Pulmonic Valve The pulmonic valve is normal. There is no pulmonic valve stenosis. There is mild pulmonic regurgitation. Mitral Valve There is no mitral valve stenosis. There is mild mitral valve regurgitation. The mitral valve annulus is moderately calcified. Tricuspid Valve The tricuspid valve leaflets are normal. There is no significant tricuspid valve stenosis. There is mild tricuspid valve regurgitation. Moderate pulmonary hypertension, estimated pulmonary arterial systolic pressure is 52 mmHg. Pericardium/Pleural The pericardium appears normal. There is no pericardial effusion. Inferior Vena Cava Normal inferior vena cava with <50% collapse upon inspiration consistent with elevated right atrial pressure, 10 mmHg. Aorta The aortic root size at the sinus of Valsalva is normal. There is mild aortic atherosclerosis. Left Ventricular Outflow Tract Name Value Normal LVOT 2D LVOT Diameter 2.1 cm LVOT Doppler LVOT Peak Velocity 110 cm/s LVOT Peak Gradient 5 mmHg LVOT Mean Gradient 2 mmHg LVOT VTI 17 cm LVOT VTI/AV VTI Ratio 0.7 LVOT Stroke Volume 58 ml LVOT CO 6.1 l/min LVOT CI 3.1 l/min/m2 Pulmonic Valve Name Value Normal PV Doppler PV Peak Velocity 124 cm/s PV Peak Gradient 6 mmHg PV Mean Gradient 3 mmHg Mitral Valve Name Value Normal MV Doppler MV Peak Gradient 4 mmHg MV Mean Gradient 2 mmHg MV Area (Cont Eq VTI) 4.5 cm2 MV Diastolic Function MV E Peak Velocity 130 cm/s MV A Peak Velocity 1 cm/s MV E/A 101.0 MV Decel Time (PW) 232 ms MV Annular TDI MV E/e' (Septal) 40.1 MV E/e' (Lateral) 19.0 MV E/e' (Average) 29.6 Tricuspid Valve Name Value Normal TV Regurgitation Doppler TR Peak Velocity 324 cm/s TR Peak Gradient 42 mmHg Estimated PAP/RSVP RA Pressure 10 mmHg <=5 PA Systolic Pressure 52 mmHg <36 RV Systolic Pressure 52 mmHg <36 TV Annular TDI TV Lateral Angelica s' Velocity 8.3 cm/s >=9.5 Aortic Valve Name Value Normal AV Doppler AV Peak Velocity 170 cm/s AV Peak Gradient 9 mmHg AV Mean Gradient 4 mmHg AV VTI 25 cm AV Area (Cont Eq VTI) 2.3 cm2 >=3.0 AV Area (Cont Eq Samir) 2.2 cm2 AV DI (Samir) 0.64 AV Regurgitation 2D LVOT Area 3.3 cm2 Ventricles Name Value Normal LV Dimensions 2D/MM IVS Diastolic Thickness (2D) 0.9 cm 0.6-1.0 LVID Diastole (2D) 4.3 cm 3.8-5.2 LVIW Diastolic Thickness (2D) 1.0 cm 0.6-0.9 LVID Systole (2D) 2.5 cm 2.2-3.5 LVOT Diameter 2.1 cm LV Mass (2D Cubed) 134.69 g 67.00-162.00 LV Mass Index (2D Cubed) 68 g/m2 43-95 Relative Wall Thickness (2D) 0.46 <=0.42 LV Fractional Shortening/Ejection Fraction 2D/MM LV Fractional Shortening (2D) 41 % 27-45 LV EF (2D Teichholz) 72 % LV Diastolic Volume (4C MOD) 40 ml LV EF (4C MOD) 59 % LV Diastolic Volume (2C MOD) 48 ml LV EF (2C MOD) 52 % LV Diastolic Volume (BP MOD) 44 ml 46-106 LV Diastolic Volume Index (BP MOD) 22 ml/m2 29-61 LV Systolic Volume (BP MOD) 20 ml 14-42 LV Systolic Volume Index (BP MOD) 10 ml/m2 8-24 LV EF (BP MOD) 55 % 54-74 LV Diastolic Length (4C) 6.8 cm LV Systolic Length (4C) 5.5 cm LV Stroke Volume (4C MOD) 24 ml Atria Name Value Normal LA Dimensions LA Volume (4C A-L) 59 ml LA Volume (BP A-L) 63 ml RA Dimensions RA Systolic Major [place] Length (4C) 4.6 cm 2.2-2.8 RA Area (4C) 12.8 cm2 <=18.0 Report Signatures
--- NOTE | ~2025-03-13 | XR_ITS ---
Examination: XR chest 1V portable Clinical History: A fib w/ rvr Comparison: 05/26/2021 Technique: Portable AP Findings: Heart size normal. Small patchy foci airspace opacity left lung. No acute bony abnormality. IMPRESSION: 1. Small patchy foci airspace disease left lung versus soft tissue artifact. Can consider PA and lateral films with deep inspiration. Reviewed, dictated and finalized at location R. A DIVING INSTRUCTOR IMPRESSION: 1. Small patchy foci airspace disease left lung versus soft tissue artifact. C an consider PA and lateral films with deep inspiration.
--- NOTE | ~2025-03-13 | CT_ITS ---
CTA CHEST CLINICAL HISTORY: cp, dimer >1 . COMPARISON: Chest x-ray today TECHNIQUE: Helical CTA performed from thoracic inlet to upper abdomen IV contrast not listed in PACS Coronal, sagittal reformats. Multiplanar MIPS CT images acquired with automatic exposure control for dose reduction DLP: 583 mGy-cm FINDINGS: Pulmonary arteries: Scattered bilateral segmental PE. Thoracic Aorta: No dissection or aneurysm. Heart/pericardium: Enlarged. Coronary artery calcifications. RV/LV ratio: 1.0. Lungs/Pleura: Scattered foci atelectasis. Elevated right hemidiaphragm, associated basilar atelectasis. Tracheobronchial tree: Patent. Nodes: No enlarged nodes. Bones: No acute bony abnormality. Soft tissues: Unremarkable. Visualized upper abdomen: Hepatomegaly, with steatosis. IMPRESSION: 1. Scattered bilateral segmental PE. Mild clot burden. 2. Right heart strain not excluded. Reviewed, dictated and finalized at location . LINER
--- NOTE | ~2025-03-13 | US_ITS ---
EXAMINATION:US venous doppler LE BI INDICATION:Pulmonary embolism TECHNIQUE: Multiple grayscale, color flow and Doppler images of the right and left lower extremity deep venous systems were obtained and reviewed. COMPARISON:No prior studies for comparison. FINDINGS: The left common femoral, superficial femoral and popliteal veins demonstrate normal respiratory variation, augmentation and compressibility. Color flow is also seen within the posterior tibial, peroneal, greater saphenous and profunda veins. Patient could not tolerate evaluation of the right lower extremity veins. IMPRESSION: 1: No left lower extremity deep venous thrombosis. Nondiagnostic study of the right lower extremity veins. Reviewed, dictated and finalized at location O. LATORY PROCESS MANAGER
--- NOTE | 2025-03-13 06:37 | ECG_ITS ---
Test Date: 2025-03-13 06:31:57 Measurements Intervals Kinsey Rate: 147 P: 0 MN: 0 QRS: -36 QRSD: 123 T: 137 QT: 314 QTc: 492 Interpretive Statements ATRIAL FIBRILLATION WITH RAPID VENTRICULAR RESPONSE MARKED LEFT AXIS DEVIATION [QRS AXIS < -30] POSSIBLE LEFT VENTRICULAR HYPERTROPHY POSSIBLE ANTERIOR MYOCARDIAL INFARCTION , PROBABLY OLD ST DEVIATION AND T-WAVE ABNORMALITY, CONSIDER ISCHEMIA Electronically Signed On 03-13-2025 07:21:11 SOCK FOLDER by Luciano Pena D.O
[2025-03-13 06:53] LABS: Hematocrit 34.8 % (37.0-47.0); Hemoglobin 9.9 g/dL (12.0-15.0); Immature Granulocyte Percent A 1.2 % (0-0.5); Lymphocytes Absolute Auto 1.26 K/mm3 (0.9-3.2); Mean Corpuscular HGB Conc 28.4 g/dl (32-36); Mean Corpuscular Hemoglobin 21.7 pg (26-34); Mean Corpuscular Volume 76.1 fl (80-100); Nucleated Red Blood Cells Absolute Auto 0.000 K/mm3 (0.0-0.012); Nucleated Red Blood Cells Perc 0.0 % (0.0-0.2); Platelet Count Result 383 k/mm3 (150-375); Red Blood Count 4.57 M/mm3 (4.2-5.4); White Blood Count 11.2 K/mm3 (4.5-10.0)
[2025-03-13 07:04] LABS: INR 1.1; Prothrombin Time 14.1 Seconds (11.1-14.7)
[2025-03-13 07:05] LABS: Alanine Aminotransferase 23 U/L (6-35); Albumin Level 3.8 g/dL (3.5-5.1); Alkaline Phosphatase 134 U/L (38-126); Anion Gap 7 mmol/L (4-12); Aspartate Amino Transferase 26 U/L (14-36); Bilirubin,Total 0.8 mg/dL (0.2-1.3); Blood Urea Nitrogen 16 mg/dL (7-17); Calcium 8.7 mg/dL (8.4-10.2); Carbon Dioxide 26 mmol/L (22-30); Chloride 100 mmol/L (98-107); Estimated CRCL calculation 75 ml/min; Estimated Glomerular Filt Rate > 60; Glucose 483 mg/dL (65-110); Partial Thromboplastin Time 25.1 Seconds (22.3-36.8); Potassium 4.7 mmol/L (3.4-5.0); Sodium 133 mmol/L (137-145); Total Protein 7.1 g/dL (6.3-8.2)
[2025-03-13 07:09] LABS: Fractional Inspired Oxygen 21 %; HCO3 VBG 24.3 mEq/l (24.0-30.0); PCO2 VBG 41.0 mmHg (42.0-48.0); PO2 VBG 33.9 mmHg (35.0-45.0); pH VBG 7.390 (7.300-7.400)
--- NOTE | 2025-03-13 07:09 | ED_ITS ---
HPI - Recheck/Abnormal Lab/Rx General Chief Complaint: Recheck/Abnormal Lab/Rx Stated Complaint: CP Time Seen by Provider: 03/13/25 07:06 Source: patient, RN notes reviewed and other (Vinay (lives with)) Mode of arrival: EMS Limitations: no limitations History of Present Illness HPI narrative: This is a 74-year-old female who presents to the emergency department with report of chest pain/a dull aching sensation on the left side of her chest that started around 2:00 a.m. and persisted until just after her arrival in the emergency department, approximately 4-1/2 hours. Patient had her right hip rebuilt through surgical procedure performed in [place] a few weeks ago. After hospitalization she required rehabilitation needs and was discharged to a correction facility [facility] fill. She spent a week or 2 there but had concerns about the medication she was receiving as she does not know what she was receiving and she subsequently signed herself out of the long term on 03/08/2025 to live with her friend Vinay [place] [address]. She has a local PCP. Her last dose of insulin she received on 03/07/2025. She does not know her regimen of insulin at home, whether that it is long-acting and short-acting or any doses or names. She has a history of atrial fibrillation. She notes that this was a somewhat recent diagnosis. She is on diltiazem for this but does not know if she is on any anticoagulation. EMS found her to be in RVR at a rate in the 150s and with a point of care blood sugar of 592. The administered half a L of normal saline. She denies any shortness of breath. She has had a bit of a cough but it has been nonproductive. No history of DKA. Has a hospital bed where she resides that was purchased and also has walker and cane. Due for Orthopedic surgery follow-up appointment this Tuesday03/15/2025. Related Data Home Medications ?Medication ?Instructions ?Recorded ?Confirmed ?Last Taken ?Type apixaban 5 mg tablet (Eliquis) 5 mg PO BID 12/17/24 Unknown History diltiazem HCl 90 mg mg PO BID 12/17/24 01/30/25 Unknown History capsule,extended release 12 hr Allergies Allergy/AdvReac Type Severity Reaction Status Date / Time lisinopril Allergy Intermediate Cough Verified 03/13/25 08:25 tramadol AdvReac Severe vomiting Verified 03/13/25 08:25 egg AdvReac Mild WHOLE EGGS Verified 03/13/25 08:25 CAUSE N/V; OK IF IN FOOD PMFSH Past Medical History Medical History (Updated 03/13/25 @ 13:35 by Delmy Aguilar MD) Atrial fibrillation Thyroid disorder screening Osteopenia of both hips Cyst of skin Restless leg syndrome Prosthetic hip infection Diarrhea due to drug Lumbar spondylosis with myelopathy Musculoskeletal chest pain Fatigue Mixed hyperlipidemia Hematuria Polyuria Numbness and tingling of right arm Type 2 diabetes, uncontrolled, with neuropathy Surgical History Surgical History Hx of appendectomy 1981 Hx of cholecystectomy 1981 History of right hip replacement Family History Family History Mother Family history of diabetes mellitus in first degree relative Diabetes mellitus Hypertension Father Sibling Diabetes mellitus Sibling No problems noted. Other Family history of coronary artery disease Social History Social History Second hand tobacco smoke exposure: No Alcohol intake: never Substance use: never Substance use type: does not use Do You Feel Safe in your Home?: Yes Lack of Transportation: No Lack of Food: Never True Current Housing: I Have Housing Concerned About Future Housing: No Difficulty Paying Gas/Electric Bills: No Difficulty Paying for Meds: No Currently Unemployed: No Education: High School Diploma/GED Difficulty w/ Childcare or Family Care: No Living arrangements: with friend(s) Additional living arrangements comments: Vinay Occupation/Education: retired Additional occupation/education comments: retail sales Gender identity (if verbalized by the patient): Female Spiritual care concerns: No Exam 2 Narrative: GENERAL: Well-appearing, well-nourished, and in no acute distress. HEAD: Normocephalic, atraumatic. EYES: Non injected, non icteric ENT: Nares clear, no rhinorrhea or epistaxis. Gross auditory acuity intact. NECK: Supple. No meningismus. CHEST: Speaking in full sentences. No respiratory distress. HEART: Irregularly IRRegular rate and rhythm, rate in the 120s-130s at bedside ABDOMEN: Soft, nondistended. No rigidity or guarding. Not peritoneal. No tenderness to palpation throughout. EXTREMITIES: Normal range of motion. No lower extremity edema. SKIN: Warm, dry. Well-healing surgical scar along right hip. NEURO: No focal deficits. Alert and oriented. Answering questions. Following commands. Normal speech without aphasia or dysarthria. PSYCH: Congruent mood and affect. Course Vital Signs Vital signs: Vital Signs Temperature 98.0 F 03/13/25 06:27 Pulse Rate 141 H 03/13/25 06:27 Respiratory Rate 20 03/13/25 06:27 Blood Pressure 131/64 03/13/25 06:27 Pulse Oximetry 100 03/13/25 06:27 Oxygen Delivery Room Air 03/13/25 06:27 Temperature 98.0 F 03/13/25 06:27 Pulse Rate 122 H 03/13/25 13:15 Respiratory Rate 24 H 03/13/25 13:15 Blood Pressure 125/70 03/13/25 13:15 Pulse Oximetry 94 03/13/25 13:15 Oxygen Delivery Room Air 03/13/25 06:27 MDM - Recheck/Abnormal Lab/Rx MDM Narrative Medical decision making narrative: Patient presents with report of left superior chest pain from 2am-6:30am. In the emergency department she is afebrile with vital signs notable for heart rate of 141. It was noted that she was in atrial fibrillation with rapid ventricular response so initial provider ordered two 10 mg IV push doses of diltiazem as this is a medication she is on. EMS had already given 0.5 L normal saline as their blood sugar was 592mg/dL. Repeat point of care upon arrival was 478 mg/dL. An IV was placed and the patient was put on cardiac and pulse oximetry monitors. ECG showed Afib with RVR. Patient hemodynamically stable thus early priority in management was to slow the ventricular rate using diltiazem 15mg ordered. She has hyperglycemia without anion gap acidosis. Additional 500 cc fluids ordered while await rest of workup. She has a chronically elevated alkaline phosphatase. Small dose lispro subQ ordered. Per review of the EMR, patient has been on apixaban since December 2024 as well as diltiazem. Urinalysis with trace ketones though I suspect this to be due to small degree of dehydration more than metabolic process. She also has glucosuria. There have bacteriuria without squamous cells and with 21-50 white blood cells. Given this, reasonable to treat as a UTI. Patient's CXR 1 view was questionable for pneumonia. Will give a one time dose of ceftriaxone initially. Patient had a urine culture from 2020 that grew E coli that was sensitive to this antibiotic. D-dimer greater than 1. Will proceed with CT PE imaging. Repeat troponin within normal limits. She has a microcytic anemia. Anemia has been noted before although this does represent a 1.7 g drop from most recent lab in our EMR though this would have been pre-surgical. Mild leukocytosis. Also mild thrombocytosis. BNP nearly 3000, higher than previous in EMR. Patient otherwise does not appear volume overloaded; in interim of CT, will require judicious fluid administration. Initial troponin within normal limits. 3 hour troponin ordered as is ASA. Patient placed on diltiazem gtt as rate control is not sustained; on 10mg at the time of my reassessment approximately 10:50am. Informed of her diagnoses and need for admission for PE, afib with RVR, and ensuring proper discharge planning (both location, medications, etc.,). Patient confirms she is full code in the event of cardiopulmonary arrest. Patient discussed with on-call hospitalist Dr. Anthony cosby Oca who accepts admission to the IMU. Defers to cardiology regarding Elliquis versus heparin. Discussed with airport operations duty manager security system administrator Dr Simon Gao who concurs with heparin gtt. Uptitrated to 12.5mg diltiazem. Repeat troponin within normal limits. == Critical Care: 1 or more vital organ systems impaired with a high probability of imminent or life-threatening deterioration in the patient's condition requiring frequent personal assessment and manipulation of the patient's condition. This included time spent evaluating the patient, speaking with EMS pre-hospital personnel and family, reviewing/interpreting laboratory/imaging studies, discussing the case with consultants or admitting teams, retrieving data and reviewing charts, monitoring for decompensation, documenting the visit, and performing bundled procedures exclusive of separately billed procedures. Differential Diagnosis Differential diagnosis: Likely other (ACS, pneumonia, acute viral syndrome, atrial fibrillation with rapid ventricular response, hyperglycemia, DKA, HHS, infection) Lab Data Attestation: I reviewed the patient's lab results. 03/13/25 06:46 03/13/25 06:46 Labs: Lab Results 03/13/25 03/13/25 03/13/25 Range/Units 06:35 06:46 07:28 WBC 11.2 H (4.5-10.0) K/mm3 RBC 4.57 (4.2-5.4) M/mm3 Hgb 9.9 L (12.0-15.0) g/dL Hct 34.8 L (37.0-47.0) % MCV 76.1 L (80-100) fl MCH 21.7 L (26-34) pg MCHC 28.4 L (32-36) g/dl RDW 18.4 H (11.5-14.5) % Plt Count 383 H (150-375) k/mm3 MPV 8.8 (7.4-10.4) fl Immature Gran % (Auto) 1.2 H (0-0.5) % Neut % (Auto) 82.5 H (45.5-73.1) % Lymph % (Auto) 11.2 L (18.3-44.2) % [place] % (Auto) 4.3 (2.6-8.5) % Eos % (Auto) 0.4 (0-4.4) % Baso % (Auto) 0.4 (0.2-1.2) % Lymph # (Auto) 1.26 (0.9-3.2) K/mm3 [place] # (Auto) 0.5 (0.1-0.6) K/mm3 Eos # (Auto) 0.0 (0-0.3) K/mm3 Baso # (Auto) 0.1 (0.0-0.1) K/mm3 Abs Immat Gran (auto) 0.13 H (0.00-0.031) K/mm3 Absolute Neuts (auto) 9.3 H (1.3-6.7) K/mm3 Absolute Nucleated RBC 0.000 (0.0-0.012) K/mm3 Band Neutrophils % Not Reportable Nucleated RBC % 0.0 (0.0-0.2) % Platelet Estimate Slightly increased (Adequate) Polychromasia 1+ Hypochromasia 2+ Anisocytosis 1+ Schistocytes None seen PT 14.1 (11.1-14.7) Seconds INR 1.1 APTT 25.1 (22.3-36.8) Seconds D-Dimer 2.61 H (<0.48) ug/mL Sodium 133 L (137-145) mmol/L Potassium 4.7 (3.4-5.0) mmol/L Chloride 100 (98-107) mmol/L Carbon Dioxide 26 (22-30) mmol/L Anion Gap 7 (4-12) mmol/L BUN 16 (7-17) mg/dL Creatinine 0.61 L (0.7-1.0) mg/dL Estim Creat Clear Calc 75 ml/min Estimated GFR > 60 (59 - ) Glucose 483 H (65-110) mg/dL POC Capillary Glucose 478 H (65-105) mg/dl Calcium 8.7 (8.4-10.2) mg/dL Magnesium 1.8 (1.6-2.3) mg/dL Total Bilirubin 0.8 (0.2-1.3) mg/dL AST 26 (14-36) U/L ALT 23 (6-35) U/L Alkaline Phosphatase 134 H (38-126) U/L Troponin I 0.014 (0.000-0.034) ng/mL NT-Pro-B Natriuret Pep 2930 H (19.9-100) pg/mL Total Protein 7.1 (6.3-8.2) g/dL Albumin 3.8 (3.5-5.1) g/dL Beta-Hydroxybutyrate/Acetoacetate 0.71 H (0.02-0.27) mmol/L Urine Color Yellow (Yellow) Urine Appearance Cloudy H (Clear) Urine pH 5.0 (5.0-9.0) Ur Specific [place] 1.026 (1.001-1.035) Urine Protein Trace (Negative) mg/dL Urine Glucose (UA) 3+ H (Negative) mg/dL Urine Ketones Trace H (Negative) mg/dL Ur Blood (Man) Negative (Negative) Urine Nitrate Negative (Negative) Urine Bilirubin Negative (Negative) Urine Urobilinogen 0.2 (<2.0) mg/dL Leukocyte Esterase Rfl Trace H (Negative) DESMOND/UL Urine RBC 0-2 (0-2) /hpf Urine WBC 21-50 H (0-3) /hpf Ur Squamous Epith Cells None seen (Few) /hpf Urine Bacteria 4+ H /hpf Urine Casts 0-2 Influenza A (RT-PCR) (Negative) Influenza B (RT-PCR) (Negative) RSV (RT-PCR) (Negative) SARS-CoV-2 RNA (RT-PCR) (Negative) 03/13/25 03/13/25 03/13/25 Range/Units 08:17 09:20 09:51 WBC (4.5-10.0) K/mm3 RBC (4.2-5.4) M/mm3 Hgb (12.0-15.0) g/dL Hct (37.0-47.0) % MCV (80-100) fl MCH (26-34) pg MCHC (32-36) g/dl RDW (11.5-14.5) % Plt Count (150-375) k/mm3 MPV (7.4-10.4) fl Immature Gran % (Auto) (0-0.5) % Neut % (Auto) (45.5-73.1) % Lymph % (Auto) (18.3-44.2) % [place] % (Auto) (2.6-8.5) % Eos % (Auto) (0-4.4) % Baso % (Auto) (0.2-1.2) % Lymph # (Auto) (0.9-3.2) K/mm3 [place] # (Auto) (0.1-0.6) K/mm3 Eos # (Auto) (0-0.3) K/mm3 Baso # (Auto) (0.0-0.1) K/mm3 Abs Immat Gran (auto) (0.00-0.031) K/mm3 Absolute Neuts (auto) (1.3-6.7) K/mm3 Absolute Nucleated RBC (0.0-0.012) K/mm3 Band Neutrophils % Nucleated RBC % (0.0-0.2) % Platelet Estimate (Adequate) Polychromasia Hypochromasia Anisocytosis Schistocytes PT (11.1-14.7) Seconds INR APTT (22.3-36.8) Seconds D-Dimer (<0.48) ug/mL Sodium (137-145) mmol/L Potassium (3.4-5.0) mmol/L Chloride (98-107) mmol/L Carbon Dioxide (22-30) mmol/L Anion Gap (4-12) mmol/L BUN (7-17) mg/dL Creatinine (0.7-1.0) mg/dL Estim Creat Clear Calc ml/min Estimated GFR (59 - ) Glucose (65-110) mg/dL POC Capillary Glucose 447 H 389 H (65-105) mg/dl Calcium (8.4-10.2) mg/dL Magnesium (1.6-2.3) mg/dL Total Bilirubin (0.2-1.3) mg/dL AST (14-36) U/L ALT (6-35) U/L Alkaline Phosphatase (38-126) U/L Troponin I 0.013 (0.000-0.034) ng/mL NT-Pro-B Natriuret Pep (19.9-100) pg/mL Total Protein (6.3-8.2) g/dL Albumin (3.5-5.1) g/dL Beta-Hydroxybutyrate/Acetoacetate (0.02-0.27) mmol/L Urine Color (Yellow) Urine Appearance (Clear) Urine pH (5.0-9.0) Ur Specific [place] (1.001-1.035) Urine Protein (Negative) mg/dL Urine Glucose (UA) (Negative) mg/dL Urine Ketones (Negative) mg/dL Ur Blood (Man) (Negative) Urine Nitrate (Negative) Urine Bilirubin (Negative) Urine Urobilinogen (<2.0) mg/dL Leukocyte Esterase Rfl (Negative) DESMOND/UL Urine RBC (0-2) /hpf Urine WBC (0-3) /hpf Ur Squamous Epith Cells (Few) /hpf Urine Bacteria /hpf Urine Casts Influenza A (RT-PCR) Negative (Negative) Influenza B (RT-PCR) Negative (Negative) RSV (RT-PCR) Negative (Negative) SARS-CoV-2 RNA (RT-PCR) Negative (Negative) ABG Data ABG results: 03/13/25 07:05 VBG pH 7.390 VBG pCO2 41.0 L VBG pO2 33.9 L VBG HCO3 24.3 O2 Delivery Device Not Reportable O2 Liters/Min Not Reportable FiO2 21 Attestation: I personally reviewed and interpreted this ABG as follows: Interpretation: Not frankly acidotic; bicarb WNL Imaging Data Radiologist's impression: Impressions Chest X-Ray 03/13/25 07:08 IMPRESSION: 1. Small patchy foci airspace disease left lung versus soft tissue artifact. Can consider PA and lateral films with deep inspiration. Chest CTA 03/13/25 08:10 IMPRESSION: 1. Scattered bilateral segmental PE. Mild clot burden. 2. Right heart strain not excluded. ECG Data EKG #1: Attestation: I personally reviewed and interpreted this ECG as follows: ECG completion date: 03/13/25 ECG completion time: 06:31 Prior ECG tracings: available for review (Previous EKG 11/15/2024 with left axis deviation but was sinus rhythm at that time) Interpretation: Atrial fibrillation with rapid ventricular response at a rate of 147. QRS 123 milliseconds. QT/QTC 314/492. Poor R-wave progression across the precordial leads. Marked Left axis deviation (QRS is positive with dominant R wave in Lead I; QRS is negative with dominant S wave in leads II, III, and aVF). Strange morphology of the QRS complex in V4 V5 V6. Critical Care Time Critical Care Time Critical Care Time: Yes Total Critical Care Time: 40 Discharge Plan Discharge Clinical Impression: Atrial fibrillation with rapid ventricular response, Chest pain, Microcytic anemia, Alkaline phosphatase raised, Hyperglycemia due to type 2 diabetes mellitus, UTI (urinary tract infection), bacterial, Bilateral pulmonary embolism Patient Disposition: Still a Patient Condition: Serious
[2025-03-13 07:14] LABS: Anisocytosis 1+; Hypochromasia 2+; Polychromasia 1+; Schistocytes None Seen
--- OUTSIDE RECORDS SUMMARY | 2025-03-13 07:32 | XMS_ITS | Clinical Summary ---
Author Organization [facility] Address [address] [place] [address] Care Team Providers Care Fruit Buyer Name Role Phone Tom Ocampo MD Primary Care Provider [phone] Source Comments [facility],non-owned Affiliates and Associated Physician Practices is amultiple site organization consisting of ambulatory clinics and hospital sitesin [place], [place], [place] and [place]. This disclosure is being madepursuant to the Care Everywhere program and may not contain all information available regarding this patient. Last updated 18.[facility] kooldiner Allergies Active Allergy Reactions Criticality Noted Date [...] 2002 ZOSTER VACCINE (1 of 2) 2002 DEPRESSION SCREENING 05/09/2024 MEDICARE AWV CALENDAR YEAR 2024 COVID-19 VACCINE (1 - 2023-2 5 season) 2025 INFLUENZA VACCINE (#1) 2025 SCREENING FOR DIABETES [...] POINT OF CARE (02/24/2023 12:34 PM CDT) [facility] Glucose WB/POC 368(H) 70 - 106 mg/dL 02/24/2023 12:43 PM CDT [facility] Specimen Type Arterial 02/24/2023 12:43 PM CDT [facility] Blood BLOOD SPECIMEN / Unknown 02/24/2023 12:34 PM CDT 02/24/2023 12:43 PM CDT Vishal Cosme MD LAB - POINT OF CARE ORDERAB LES Final Result Performing Organization Address City/State/[facility] Co de Phone Number [facility] [address] [place] [address] from Last 3 Months or Most Recently Relevant to Health Maintenance Insurance [employer] MEDICARE ADV HMO & PPO [employer] MEDICARE ADV HMO & PPO Care Teams Fruit Buyer Relationship Specialty Start Date End Date Tom Ocampo MD [address] [place] [address] PCP - General Family Medicine 02/02/23
--- OUTSIDE RECORDS SUMMARY | 2025-03-13 07:32 | XMS_ITS | Clinical Summary ---
Author Organization [facility] Address [address] [place] [address] Care Team Providers Care Fitter Machinist Name Role Phone Tom Ocampo MD Primary Care Provider [phone] Allergies Active Allergy Reactions Criticality Noted Date [...] she does not want to go to [place], she would much rather go to [place]--so we will try to get her, seen if we can find someone that does revision arthroplasties up in [place] . Encounters Date Type Department Care Team Description 02/14/2025 Telephone [facility] Care Management [address] [place] [address] [place] [address] Joyce Carter, collar band creaser (Swing bed referral to [facility] from [facility] from Last 3 Months Family History Medical [...] Scan (General) 2017 COVID-19 Vaccine (4 - 2024-2 6 season) 2025 03/31/2021, 09/25/2020, 09/04/2020 Influenza Adult (#1) 2025 RSV Immunization or 60+ Years (1 - 1-dose 75+ series) 11/09/2027 DTaP, Tdap and Td Vaccines ( 2 - Td or Tdap) 04/20/2031 04/20/2021 PHQ-2 (Physician [place]) Completed 07/30/2024 Hepatitis A Vaccines Aged Out No long er eligible based on patient's age to complete this topic Meningococcal B Vaccine Aged Out No l onger eligible based on patient's age to complete this topic Meningococcal Vaccine Aged Out No isabel nafisa eligible based on patient's age to complete this topic RSV Immunizations Under 20 Months Aged Out No longer eligible b ased on patient's age to complete this topic Insurance [employer] MEDICARE Advance Directives Documents on File Type Date Recorded Patient Hollow Core Door Frame Assembler Expl anation Legal Documents 04/21/2022 10:03 AM COMPL ETED ATTNY REQ * Full Code (Latest Code Status on File) Date Activated Date Inactivated Comments 08/20/2021 10:15 AM 08/24/2021 6:37 PM Care Teams Fitter Machinist Relationship Specialty Start Date End Date Tom Ocampo MD [address] [place] [address] PCP - General FAMILY PRACTICE 08/19/21
[2025-03-13] MEDS: SODIUM CHLORIDE 0.9% IV 500 ML 999 ML IV CONT (07:36)
[2025-03-13 07:37] LABS: Beta-Hydroxybutyrate/Acetoace. 0.71 mmol/L (0.02-0.27)
[2025-03-13 07:42] LABS: Magnesium 1.8 mg/dL (1.6-2.3)
[2025-03-13 07:43] LABS: Add Urine Microscopic? YES; Appearance Urine Cloudy (Clear); Glucose Urine UA 3+ mg/dL (Negative); Leukocyte Esterase Ur Trace LEU/UL (Negative); Nitrate Urine Negative (Negative); Non Pathogenic Casts 0-2; Specific Grav Ur 1.026 (1.001-1.035)
--- NOTE | 2025-03-13 07:52 | PC.NURSE ---
Patient cleaned up and depend changed due to patient being soiled. Patient repositioned and call light in reach. Patient given ice chips per verbal order from Dr Aguilar.
[2025-03-13 07:54] LABS: NT Pro B Type Natriuretic Pept 2930 pg/mL (19.9-100); Troponin I 0.014 ng/mL (0.000-0.034)
[2025-03-13] MEDS: INSULIN ASPART (*BKC) 100 UNITS/ML 6 UNITS SUB-Q (08:18)
[2025-03-13] MEDS: cefTRIAXone 1 GM in SODIUM CHLORIDE 0.9% IV 50 ML 100 ML IVPB (08:20)
[2025-03-13 09:01] LABS: Influenza A QL RT-PCR Negative (Negative); Influenza B QL RT-PCR Negative (Negative); RSV RNA, RT-PCR Negative (Negative); SARS-CoV-2 RNA PCR Negative (Negative)
[2025-03-13] MEDS: dilTIAZem 100 MG/100 ML 100 MG/100 ML BAG IV CONT (09:20)
--- NOTE | 2025-03-13 09:42 | PC.NURSE ---
Cardizem titrated to 7.5
--- NOTE | 2025-03-13 09:44 | ECG_ITS ---
Test Date: 2025-03-13 09:55:32 Measurements Intervals [place] Rate: 118 P: 0 MA: 0 QRS: -28 QRSD: 121 T: 139 QT: 329 QTc: 462 Interpretive Statements ATRIAL FIBRILLATION WITH RAPID VENTRICULAR RESPONSE BORDERLINE LEFT AXIS DEVIATION [QRS AXIS < -20] MODERATE INTRAVENTRICULAR CONDUCTION DELAY [110+ ms QRS DURATION] MODERATE VOLTAGE CRITERIA FOR LVH, CONSIDER NORMAL VARIANT [MEETS CRITERIA IN ONE OF: R(aVL), S(V1), R(V5), R(V5/V6)+S(V1)] ST DEVIATION AND MODERATE T-WAVE ABNORMALITY, CONSIDER LATERAL ISCHEMIA [-0.1+ mV T-WAVE IN I/aVL/V5/V6] ABNORMAL ECG Compared to ECG 03/13/2025 06:31:57 Intraventricular conduction delay now present Myocardial infarct finding no longer present Possible ischemia still present Electronically Signed On 03-13-2025 14:41:10 NET TECHNICAL ARCHITECT by Fabian Rod M.D.
[2025-03-13 10:31] LABS: Troponin I 0.013 ng/mL (0.000-0.034)
[2025-03-13] MEDS: HEPARIN SOD/D5W 100 UNITS/ML 25,000 UNITS/250 ML BAG 12 UNITS IV CONT (11:20)
--- NOTE | 2025-03-13 13:14 | P.HP_ITS ---
H&P: HPI History of Present Illness Date/Time: 03/13/25 13:14 Chief Complaint: Chest Pain Narrative: 74 y/o F with PMH of atrial fibrillation on anticoagulation, diabetes, and hyperlipidemia presents here with chest pain. The patient presents here from home via EMS on 03/13 for further evaluation of chest pain. She reports onset of left-sided chest pain around 2:00 a.m. this morning. She describes the pain as dull, nonradiating, constant, with no modifying factors. Denies nausea, vomiting, shortness of breath, diaphoresis, palpitations, leg pain or swelling. The patient also notes that she had a rece nt right hip surgery performed in [place] in Jan. After her hospitalization for this surgery she required rehab services for short period and was subsequently discharged to a [facility] facility. She reports she stayed there for approximately 1-2 weeks but ultimately signed herself out AMA on 03/08/2025 due to concerns about the facility. She states they left her in a depends for almost 24 hours and she was concerned they were tainting her medications. She reports she refused medications from them the whole time she was there, states she has been off her home medications for the last 2-3 weeks. Since leaving the facility, she has not taken any of her home medications but did make an appt with her PCP on Sunday 03/18 to try to have them filled. Per EMS upon their arrival the patient was in AFib RVR with a rate in the 150s and had a glucose of 592. She was given a 500 mL bolus prior to arrival. Her initial glucose at this facility was 478. She is currently reporting XX. Initial VS at presentation: 98? F, HR 141, R 20, 131/64, and 100% on RA. ED workup showed: WBC 11.2, hemoglobin 9.9 (11.6 on 01/31/2025), D-dimer elevated, VBG virtually unremarkable, sodium 133, creatinine 0.61 and GFR >60, glucose 43, initial troponin 0.014, beta hydroxy 0.71. UA showed indicators of infection with no epithelial cells. Viral PCR negative. CXR showed small patchy foci airspace disease in the left lung versus soft tissue artifact. Chest CTA showed scattered bilateral segmental PE, mild clot burden, right heart strain not excluded. Review of Systems Review of Systems: All systems reviewed & are unremarkable except as noted in HPI and below [facility] Past Medical History Medical History (Updated 03/13/25 @ 13:42 by Love Sapp APRN) Atrial fibrillation Thyroid disorder screening Osteopenia of both hips Cyst of skin Restless leg syndrome Prosthetic hip infection Diarrhea due to drug Lumbar spondylosis with myelopathy Musculoskeletal chest pain Fatigue Mixed hyperlipidemia Hematuria Polyuria Numbness and tingling of right arm Type 2 diabetes, uncontrolled, with neuropathy Surgical History Surgical History Hx of appendectomy 1981 Hx of cholecystectomy 1981 History of right hip replacement Family History Family History Mother Family history of diabetes mellitus in first degree relative Diabetes mellitus Hypertension Father Sibling Diabetes mellitus Sibling No problems noted. Other Family history of coronary artery disease Social History Social History Smoking status: Never smoker Second hand tobacco smoke exposure: Yes Alcohol intake: never Substance use: never Substance use type: does not use Do You Feel Safe in your Home?: Yes Lack of Transportation: No Lack of Food: Never True Current Housing: I Have Housing Concerned About Future Housing: No Difficulty Paying Gas/Electric Bills: No Difficulty Paying for Meds: No Currently Unemployed: No Education: High School Diploma/GED Difficulty w/ Childcare or Family Care: No Living arrangements: with friend(s) Additional living arrangements comments: Vinay Occupation/Education: retired Additional occupation/education comments: retail sales Gender identity (if verbalized by the patient): Female Spiritual care concerns: No Meds Home Medications and Allergies Home Medications ?Medication ?Instructions ?Recorded ?Confirmed ?Type alcohol swabs (Alcohol Wipes) 1 pad topical .5 times a day #200 02/25/23 03/13/25 Rx ea albuterol sulfate 90 mcg/actuation 2 inh inhalation Q6 H PRN shortness 05/22/24 03/13/25 Rx aerosol inhaler of breath or wheezing #8.5 g krista gabapentin 300 mg capsule 600 mg (2 x 300 mg) PO QHS # 180 11/08/24 03/13/25 Rx caps glimepiride 2 mg tablet 2 mg PO QAM #90 tabs 5 03/13/25 Rx insulin glargine 100 unit/mL (3 55 unit (0.55 mL) subc ut QPM #45 mL 11/08/24 03/13/25 Rx mL) subcutaneous pen (Lantus Solostar U-100 Insulin) rosuvastatin 20 mg tablet 20 mg PO DAILY #90 tabs 07/07/3103/13/25 Rx insulin lispro 100 unit/mL See Rx Instructions subcut .QAC & 11/28/24 03/13/25 Rx subcutaneous pen (Humalog KwikPen QHS #15 mL (U-100) Insulin) apixaban 5 mg tablet (Eliquis) 5 mg PO BID 12/17/24 History diltiazem HCl 90 mg 90 mg PO BID 12/17/24 History capsule,extended release 12 hr pen needle, diabetic 31 gauge x #400 ea 01/28/2501/30 Rx 3/16 flash glucose sensor (FreeStyle #2 ea 02/11/25 Rx Bernardo 2 Sensor kit) flash glucose scanning reader #1 ea 02/12/25 Rx (FreeStyle Bernardo 2 [place]) ropinirole 1 mg tablet 1 mg PO HS 03/13/25 03/13/25 History Allergies Allergy/AdvReac Type Severity Reaction Status Date / Time lisinopril Allergy Intermediate Cough Verified 03/13/25 14:36 tramadol AdvReac Severe vomiting Verified 03/13/25 14:36 egg AdvReac Mild WHOLE EGGS Verified 03/13/25 14:36 CAUSE N/V; OK IF IN FOOD Vital Signs Vital Signs - 24 hr 03/13/25 06:27 03/13/25 07:37 03/13/25 09:20 Temperature 98.0 F Pulse Rate 141 H 141 H 121 H Respiratory Rate 20 24 H Blood Pressure 131/64 134/73 138/104 H Pulse Oximetry 100 95 Oxygen Delivery Room Air 03/13/25 09:42 03/13/25 10:03 03/13/25 10:04 Temperature Pulse Rate 150 H 134 H 127 H Respiratory Rate 24 H Blood Pressure 161/75 H 135/82 135/82 Pulse Oximetry 97 Oxygen Delivery 03/13/25 11:01 03/13/25 11:01 Temperature Pulse Rate 122 H 123 H Respiratory Rate 24 H Blood Pressure 143/71 H 143/71 H Pulse Oximetry 95 Oxygen Delivery Exam Const: General: comfortable and no acute distress Other: , female, elderly, nontoxic appearance HENMT: Face/Nose/Sinus: Normal nares present Mouth: Yes moist mucous membranes Eyes: General: appearance normal, both eyes and all related structures Sclera: sclerae normal Pupils: Equal, round and reactive pupils present EOM: EOMs intact bilaterally Resp: Effort & Inspection: normal respiratory effort Auscultation: clear to auscultation bilaterally Cardio: Other: Tachycardic with irregular rhythm consistent with AFib. No murmur. GI: Other: Abdomen soft, nondistended, nontender. Normoactive bowel sounds in all quadrants. Skin: General skin exam: normal color and no rashes or lesions noted Wounds: no wounds Neuro: Speech: normal speech Motor exam (neuro): 5/5 motor strength present throughout Sensory Exam: normal sensation Other: A&O x4 Extrem: Other: Tenderness to the right lower extremity without accompanying edema or erythema. Psych: Mental Status: mental status grossly normal Affect: normal affect Other: Fair insight and judgment H&P: Results Labs Labs: Short CBC 03/13/25 Range/Units 06:46 WBC 11.2 H (4.5-10.0) K/mm3 Hgb 9.9 L (12.0-15.0) g/dL Hct 34.8 L (37.0-47.0) % Plt Count 383 H (150-375) k/mm3 BMP 03/13/25 06:46 Sodium 133 L Potassium 4.7 Chloride 100 Carbon Dioxide 26 BUN 16 Creatinine 0.61 L Glucose 483 H Calcium 8.7 Cardiac Enzymes 03/13/25 03/13/25 Range/Units 06:46 09:51 Troponin I 0.014 0.013 (0.000-0.034) ng/mL Liver Function 03/13/25 Range/Units 06:46 Total Bilirubin 0.8 (0.2-1.3) mg/dL AST 26 (14-36) U/L ALT 23 (6-35) U/L Alkaline Phosphatase 134 H (38-126) U/L Albumin 3.8 (3.5-5.1) g/dL Urine 03/13/25 Range/Units 07:28 Urine Color Yellow (Yellow) Urine Appearance Cloudy H (Clear) Urine pH 5.0 (5.0-9.0) Ur Specific [place] 1.026 (1.001-1.035) Urine Protein Trace (Negative) mg/dL Urine Glucose (UA) 3+ H (Negative) mg/dL Assessment and Plan Assessment and plan (1) Bilateral pulmonary embolism: Code(s): I26.99 - Other pulmonary embolism without acute cor pulmonale Status: Acute Assessment and Plan: Patient presented here with acute onset of left-sided chest pain around 2:00 a.m.. Patient has a history of atrial fibrillation on anticoagulation, however she has been noncompliant with her medications for the past 2-3 weeks. D-dimer initially elevated in the ED. CTA was performed which showed scattered bilateral segmental PE with mild clot burden, right heart strain could not be excluded. Of note, the patient recently had hip surgery in [place] in January. No erythema or edema to her peripheral extremities on exam, decreased suspicion for DVT however she does have some pain with palpation to the right lower extremity. - ultrasound of the bilateral lower extremities to rule out DVT - trending troponins, thus far negative x2. 6 hour pending. - check echo - started on heparin on 03/13, monitor coags and H&H - reviewed vital signs from the emergency department, patient has remained 94- 100% on room air. Patient is tachycardic, however is in AFib RVR and has been off her rate controlling medications for her known AFib. However, heart rate may currently be exacerbated by her pulmonary emboli (2) Atrial fibrillation with rapid ventricular response: Code(s): I48.91 - Unspecified atrial fibrillation Status: Acute Assessment and Plan: Patient has history of atrial fibrillation on anticoagulation. Outpatient she is supposed to be on diltiazem ER 90 mg and Eliquis 5 mg b.i.d.. Has not been compliant with her medications for the past 2-3 weeks. Initial EKG showed AFib RVR with a rate of 147. She was given diltiazem IV push x4 (10 mg x 2, 20 mg x 1, 50 mg x 1) and her diltiazem infusion is currently at 12.5 mg/hr. HR 141 -> 120s. Plan to increase infusion to 15 mg/hr. - Cardizem gtt initiated on 03/13 - telemetry monitoring - currently on heparin due to PEs noted on CTA, will need to resume Eliquis when appropriate. - reviewed previous lab work, TSH within normal limits on 01/31/2025 - echo to be updated due to current PEs - cardiology consulted (3) Chest pain: Qualifiers: Chest pain type: other chest pain Qualified Code(s): R07.89 - Other chest pain Code(s): R07.9 - Chest pain, unspecified Status: Acute Assessment and Plan: Presented with acute left-sided chest pain that started at 2:00 a.m.. Troponin thus far flat x2. 6 hour pending. Chest pain likely secondary to her bilateral segmental PEs and tachycardia related to her AFib RVR. - trend troponins. Thus far flat 0.014 -> 0.013, 6 hour pending - cardiology consulted - telemetry (4) Hyperglycemia due to type 2 diabetes mellitus: Code(s): E11.65 - Type 2 diabetes mellitus with hyperglycemia Status: Chronic Assessment and Plan: Type 2 diabetes with hyperglycemia without evidence of DKA. Anion gap normal and pH normal. Beta hydroxy however 0.71. Has not taken diabetes medications for the past 2-3 weeks. - hypoglycemia protocol - POC blood glucose ACHS - home medication: Hold glimepiride and home sliding scale. Continue Lantus with pharmacist to adjust. - correct regimen ordered - high dose TIDWM and HS, based off BMI - A1C 8.1% in 2020, update (5) UTI (urinary tract infection), bacterial: Code(s): N39.0 - Urinary tract infection, site not specified; A49.9 - Bacterial infection, unspecified Status: Chronic Assessment and Plan: Very mild leukocytosis noted upon admission, WBC 11.2. - UA: Cloudy, 3+ glucose, trace ketones, trace leuk esterase, 21-50 WBC, no epithelial cells and 4+ bacteria. - UC pending - reviewed previous lab work, no previous micro available for review - started on Ceftriaxone on 03/13 in the ED, continued inpatient (6) Microcytic anemia: Code(s): D50.9 - Iron deficiency anemia, unspecified Status: Acute Assessment and Plan: Hemoglobin 9.9 upon admission. Previously 11.6 on 01/31/2025. Did have recent surgery within the last few weeks which could account for slight reduction compared to most recent lab value. MCV and MCHC also reduced. - check iron, TIBC, ferritin, B12, folic acid - transfuse if <7 - trend H&H Plan PT/OT eval and treatment placed in the ED. However patient is not interested in discussing placement or home health during this visit. She prefers to follow-up with her PCP, Polo MARTELL, to discuss this once she is discharged. Patient is also reporting she has had a poor appetite for some time and has had difficulty eating, no dysphagia. Patient does not want to speak with the dietitian. Diet: Diabetic GI Prophylaxis: N/a DVT Prophylaxis: Heparin gtt IV fluids: 1 L bolus Lines/Tubes: Peripheral IV Code Status: Full code Quality VTE Prophylaxis VTE prophylaxis: pharmacologic ordered Hospitalist [facility] Advance Care Plan I have confirmed that the patient's Advanced Care Plan is present, code status is documented, or surrogate decision maker is listed in patient medical record.: Yes Medication Reconciliation I have utilized all available resources to obtain, update and review the patients current medications (includes all prescriptions, OTC, herbals, cannabis, and nutritional supplements).: Yes
--- NOTE | 2025-03-13 14:33 | ADMGEN ---
This patient, Brook Hansen, was admitted to IMU Room 207-01. Patient/family oriented to hospital policies and general routines including ID bracelet, bed and alarms, visiting hours, pain management, procedures, bathroom and other care routines, personal items, smoking policy, room service/diet, and visiting hours. Information on how to activate the Rapid Response Team has been discussed. Patient/Family are encouraged to report perceived risks to care and to ask questions if they do not understand what they are told or what they should do.
[2025-03-13] MEDS: PERFLUTREN LIPID MICROSPHERES 1.5 ML VIAL DILUTED TO 10 ML TOTAL VOLUME IV PUSH (15:11)
--- NOTE | 2025-03-13 15:11 | IVDEFINITY ---
Prior to administration of IV Definity the patient was educated on the risks and benefits of the imaging enhancing agent including potential adverse side effects. The patient verbalized understanding. Allergies were verified. No exclusion criteria were identified and at least one of the following inclusion criteria were met: 1) physician request, 2) patient technically difficult to image (per the [place] [employer] Echocardi[employer] guidelines of two or more segments not discernable within the apical view), or 3) questionable left ventricular function. ?
[2025-03-13 15:38] LABS: Troponin I 0.016 ng/mL (0.000-0.034)
[2025-03-13 15:54] LABS: Iron 31 ug/dL (37-170)
[2025-03-13 16:31] LABS: Ferritin 23.50 ng/mL (11.1-264)
[2025-03-13] MEDS: dilTIAZem 100 MG/100 ML 100 MG/100 ML BAG 15 MG IV CONT ×2 (16:33→23:25)
[2025-03-13] MEDS: INSULIN ASPART (*BKC) 100 UNITS/ML SUB-Q ×2 (16:35→21:06)
--- NOTE | 2025-03-13 17:33 | PM.CNCAR ---
Assessment and Plan Assessment and plan (1) Atrial fibrillation with rapid ventricular response: Code(s): I48.91 - Unspecified atrial fibrillation Status: Acute (2) Type 2 diabetes, controlled, with neuropathy: Code(s): E11.40 - Type 2 diabetes mellitus with diabetic neuropathy, unspecified Status: Acute (3) Prosthetic hip infection: Qualifiers: Encounter type: sequela Qualified Code(s): T84.59XS - Infection and inflammatory reaction due to other internal joint prosthesis, sequela; Z96.649 - Presence of unspecified artificial hip joint Code(s): T84.59XA - Infection and inflammatory reaction due to other internal joint prosthesis, initial encounter; Z96.649 - Presence of unspecified artificial hip joint Status: Acute (4) Hip fracture, right: Qualifiers: Encounter type: sequela Fracture type: closed Qualified Code(s): S72.001S - Fracture of unspecified part of neck of right femur, sequela Code(s): S72.001A - Fracture of unspecified part of neck of right femur, initial encounter for closed fracture Status: Acute (5) Mixed hyperlipidemia: Code(s): E78.2 - Mixed hyperlipidemia Status: Acute (6) Hyperglycemia due to type 2 diabetes mellitus: Code(s): E11.65 - Type 2 diabetes mellitus with hyperglycemia Status: Chronic Plan Impression: 1. Paroxysmal atrial fibrillation with rapid ventricular response. Currently heart rate is in the radial 120-136 per minute with atrial fibrillation. EKG shows left bundle branch block. Recent diagnosis of atrial fibrillation. Patient stopped medication while at the alf including blood thinners. 2. Complaints of left upper sided chest pain and left shoulder pain appears to be atypical in nature. Cardiac enzymes are not suggestive of acute coronary syndrome 3. History of right hip fracture followed by infection of the right hip prosthesis. Patient is on chronic bedridden condition since January of 2025. 4. Type 2 diabetes with uncontrolled blood sugar. 5. Elevated proBNP at 2930. CT angiogram is positive for scattered bilateral segmental pulmonary embolism. Mild clot burden is noted. Right heart strain could not be excluded. Chest x-ray negative for congestive heart failure. Patient could have chronic diastolic heart failure. Recommendations: 1. Currently blood pressure 132/54 and heart rate is 132 per minute. Will start patient on Cardizem drip after a small bolus. 2. Echocardiogram performed today shows normal left ventricular size and systolic function estimated at 55-60%. Patient has diastolic dysfunction with moderately enlarged left atrium and moderate mitral annular calcification. Moderate pulmonary hypertension noted at 52 mm of mercury . 3. Continue with IV heparin drip and Cardizem drip, diltiazem 30 mg q.i.d.. Continue with the rosuvastatin 20 mg at bedtime. 4. Very high blood sugar on admission. Patient will likely need addition of insulin in her therapy. Renal function is normal. 5. Patient was started on IV heparin the emergency room with positive findings for small P and atrial fibrillation. History of Present Illness History of Present Illness Consult date/time: 03/13/25 17:33 Requesting physician: Delmy Aguilar MD Consult reason: atrial fibrillation Reason For Visit: Afib RVR/PE/Hyperglycemia Narrative: Patient is a 74-year-old female admitted with a left-sided and left upper arm pain which started about 2:00 a.m. this morning. Patient had recent surgery on the right leg in January of 2025 with complication with titanium corrina. Patient is bed-bound since then. Patient was apparently found to have atrial fibrillation last admission and was started on medication as well as oral anticoagulation therapy. While in the alf patient did not get along and decided to stop stop all her medications. When EMS picked her up her heart rate was 150 per minute and blood sugar was 592. 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 No associated fever or chills. No complaints of abdominal pain, nausea vomiting or diarrhea. Admitting blood pressure was 131/64 and heart rate was 141 per minute. Patient was afebrile and O2 saturation was 100% on room air. Admitting laboratory data revealed mildly elevated WBC count at 11.2. Hemoglobin is 9.9 and platelets are normal. Sodium is 133, potassium is 4.7, BUN is 16, creatinine 0.6. Platelets are normal. Blood sugar was more than 500 on admission slowly decreased to 447 and 389. Cardiac troponin is 0.13 followed by 0.016. Patient was examined at the bedside. Patient appears to be comfortable without shortness of breath or chest pain at this time. Monitor shows atrial fibrillation with 120-136 per minute. Review of Systems Review of Systems: Twelve point review of system was completed. Pertinent positive and negative findings per HPI. [facility] Past Medical History Medical History (Updated 03/13/25 @ 13:42 by Love Sapp APRN) Atrial fibrillation Thyroid disorder screening Osteopenia of both hips Cyst of skin Restless leg syndrome Prosthetic hip infection Diarrhea due to drug Lumbar spondylosis with myelopathy Musculoskeletal chest pain Fatigue Mixed hyperlipidemia Hematuria Polyuria Numbness and tingling of right arm Type 2 diabetes, uncontrolled, with neuropathy Surgical History Surgical History Hx of appendectomy 1981 Hx of cholecystectomy 1981 History of right hip replacement Family History Family History Mother Family history of diabetes mellitus in first degree relative Diabetes mellitus Hypertension Father Sibling Diabetes mellitus Sibling No problems noted. Other Family history of coronary artery disease Social History Social History Smoking status: Never smoker Second hand tobacco smoke exposure: Yes Alcohol intake: never Substance use: never Substance use type: does not use Do You Feel Safe in your Home?: Yes Lack of Transportation: No Lack of Food: Never True Current Housing: I Have Housing Concerned About Future Housing: No Difficulty Paying Gas/Electric Bills: No Difficulty Paying for Meds: No Currently Unemployed: No Education: High School Diploma/GED Difficulty w/ Childcare or Family Care: No Living arrangements: with friend(s) Additional living arrangements comments: Vinay Occupation/Education: retired Additional occupation/education comments: retail sales Gender identity (if verbalized by the patient): Female Spiritual care concerns: No Meds Home Medications and Allergies Home Medications ?Medication ?Instructions ?Recorded ?Confirmed ?Type alcohol swabs (Alcohol Wipes) 1 pad topical .5 times a day #200 02/25/23 03/13/25 Rx ea albuterol sulfate 90 mcg/actuation 2 inh inhalation Q6H PRN shortness 05/22/24 03/13/25 Rx aerosol inhaler of breath or wheezing #8.5 grams gabapentin 300 mg capsule 600 mg (2 x 300 mg) PO QHS #180 11/08/24 03/13/25 Rx caps glimepiride 2 mg tablet 2 mg PO QAM #90 tabs 11/08/24 03/13/25 Rx insulin glargine 100 unit/mL (3 55 unit (0.55 mL) subcut QPM #45 mL 11/08/24 03/13/25 Rx mL) subcutaneous pen (Lantus Solostar U-100 Insulin) rosuvastatin 20 mg tablet 20 mg PO DAILY #90 tabs 11/08/24 03/13/25 Rx insulin lispro 100 unit/mL See Rx Instructions subcut .QAC & 11/28/24 03/13/25 Rx subcutaneous pen (Humalog KwikPen QHS #15 mL (U-100) Insulin) apixaban 5 mg tablet (Eliquis) 5 mg PO BID 12/17/24 03/13/25 History diltiazem HCl 90 mg 90 mg PO BID 12/17/24 03/13/25 History capsule,extended release 12 hr pen needle, diabetic 31 gauge x #400 ea 01/28/25 03/13/25 Rx 3/16 flash glucose sensor (FreeStyle #2 ea 02/11/25 03/13/25 Rx Bernardo 2 Sensor kit) flash glucose scanning reader #1 ea 02/12/25 03/13/25 Rx (FreeStyle Bernardo 2 Gary) ropinirole 1 mg tablet 1 mg PO HS 03/13/25 03/13/25 History Allergies Allergy/AdvReac Type Severity Reaction Status Date / Time lisinopril Allergy Intermediate Cough Verified 03/13/25 14:36 tramadol AdvReac Severe vomiting Verified 03/13/25 14:36 egg AdvReac Mild WHOLE EGGS Verified 03/13/25 14:36 CAUSE N/V; OK IF IN FOOD Vital Signs Vital Signs - 24 hr 03/13/25 06:27 03/13/25 07:37 03/13/25 09:20 Temperature 36.7 C Pulse Rate 141 H 141 H 121 H Respiratory Rate 20 24 H Blood Pressure 131/64 134/73 138/104 H Pulse Oximetry 100 95 Oxygen Delivery Room Air 03/13/25 09:42 03/13/25 10:03 03/13/25 10:04 Temperature Pulse Rate 150 H 134 H 127 H Respiratory Rate 24 H Blood Pressure 161/75 H 135/82 135/82 Pulse Oximetry 97 Oxygen Delivery 03/13/25 11:01 03/13/25 11:01 03/13/25 13:15 Temperature Pulse Rate 122 H 123 H 122 H Respiratory Rate 24 H 24 H Blood Pressure 143/71 H 143/71 H 125/70 Pulse Oximetry 95 94 Oxygen Delivery 03/13/25 15:04 03/13/25 16:00 03/13/25 16:33 Temperature 36.8 C 36.8 C Pulse Rate 129 H 113 H 130 H Respiratory Rate 17 20 Blood Pressure 126/78 132/71 132/54 L Pulse Oximetry 94 95 Oxygen Delivery 03/13/25 16:34 Temperature Pulse Rate 132 H Respiratory Rate Blood Pressure 132/54 L Pulse Oximetry Oxygen Delivery Exam Narrative: Patient was examined at the bedside. Patient is awake alert appears to be comfortable without acute distress. Answer questions. Head and neck examination is unremarkable. Sclerae is nonicteric. ENT examination is negative. Neck is supple. There is no JVD or carotid bruit. Thyroid is not enlarged. Lungs are clear to auscultation percussion. Heart sounds reveal irregularly irregular rhythm. Soft systolic murmur is noted. There is no S3 or S4. Abdomen is soft and nondistended. There is nontender. There is no hepatosplenomegaly bowel sounds present. Extremities revealed no pedal edema at this time. Neurological examination is intact. Results Labs and Meds 03/13/25 06:46 03/13/25 06:46 Lab results: Cardiac Enzymes 03/13/25 03/13/25 03/13/25 Range/Units 06:46 09:51 14:43 AST 26 (14-36) U/L Troponin I 0.014 0.013 0.016 D (0.000-0.034) ng/mL Coagulation 03/13/25 Range/Units 06:46 PT 14.1 (11.1-14.7) Seconds APTT 25.1 (22.3-36.8) Seconds CBC 03/13/25 Range/Units 06:46 WBC 11.2 H (4.5-10.0) K/mm3 RBC 4.57 (4.2-5.4) M/mm3 Hgb 9.9 L (12.0-15.0) g/dL Hct 34.8 L (37.0-47.0) % Plt Count 383 H (150-375) k/mm3 Lymph # (Auto) 1.26 (0.9-3.2) K/mm3 Kaufman # (Auto) 0.5 (0.1-0.6) K/mm3 Eos # (Auto) 0.0 (0-0.3) K/mm3 Baso # (Auto) 0.1 (0.0-0.1) K/mm3 Comprehensive Metabolic Panel 03/13/25 Range/Units 06:46 Sodium 133 L (137-145) mmol/L Potassium 4.7 (3.4-5.0) mmol/L Chloride 100 (98-107) mmol/L Carbon Dioxide 26 (22-30) mmol/L BUN 16 (7-17) mg/dL Creatinine 0.61 L (0.7-1.0) mg/dL Glucose 483 H (65-110) mg/dL Calcium 8.7 (8.4-10.2) mg/dL AST 26 (14-36) U/L ALT 23 (6-35) U/L Alkaline Phosphatase 134 H (38-126) U/L Total Protein 7.1 (6.3-8.2) g/dL Albumin 3.8 (3.5-5.1) g/dL Intake and Output 03/13/25 03/13/25 03/13/25 07:59 15:59 23:59 Intake Total 564.1 62.8 Balance 564.1 62.8 Intake: IV 564.1 62.8 Sodium Chloride 0.9% IV 500 ml 500 @ 999 mls/hr IV CONT .Q31M STA Rx#:[id number] dilTIAZem 100 MG/100 ML 100 mg 14.1 62.8 In 100 ml @ 5 MG/HR 5 mls/hr IV CONT .Q20H STA Rx#:[id number] cefTRIAXone 1 gm In Sodium 50 Chloride 0.9% IV 50 ml @ 100 mls/hr IVPB ONCE STA Rx#: [id number] Other: Amount of IV Fluids Infused by 400 EMS Patient Weight 03/13/25 23:59 Weight 72.2 kg
[2025-03-13 17:45] LABS: Partial Thromboplastin Time 96.1 Seconds (22.3-36.8)
[2025-03-13 17:52] LABS: Vitamin B12 860.0 pg/mL (239-931)
[2025-03-13 20:29] LABS: Percent Iron Saturation 8 % (20-50)
[2025-03-13] MEDS: GABAPENTIN 300 MG CAPSULE 600 MG PO (21:05)
[2025-03-13] MEDS: INSULIN GLARGINE (*BKC) 100 UNITS/ML 44 UNITS SUB-Q (21:06)
--- NOTE | 2025-03-13 23:34 | PC.NURSE ---
Pt. refuses to take her cardizem pill stating pills are hard to swallow. The rn has offered to crush med and put in pudding or applesauce but pt. refuses this way also. Pt. also states that tge patient wants ti sleep and not be disturbed with anything or anyone. [facility] rn has stated several times of the importance of vitals signs that need to be taken every 2 hours due to the pt. is on diltazem gtt and that the pt's heart rate needs to be monitor closely and that rn has to access the patient every 4hours. The pt. is very non compliant.
[2025-03-13 23:43] LABS: Partial Thromboplastin Time 62.6 Seconds (22.3-36.8)
[2025-03-14] VITALS (19 sets, daily range): BP systolic 107–146; BP diastolic 55–64; PULSE 55–126; RESP 16–24; TEMP 36.2–36.7; O2SAT 93–100; BMI 25.9
[2025-03-14] MEDS: dilTIAZem 100 MG/100 ML 100 MG/100 ML BAG 15 MG IV CONT (05:36)
[2025-03-14] MEDS: HEPARIN SOD/D5W 100 UNITS/ML 25,000 UNITS/250 ML BAG 13 UNITS IV CONT (05:41)
--- NOTE | 2025-03-14 06:05 | ECG_ITS ---
Test Date: 2025-03-14 06:11:52 Measurements Intervals [place] Rate: 54 P: 8 CA: 131 QRS: -13 QRSD: 90 T: -2 QT: 438 QTc: 416 Interpretive Statements SINUS BRADYCARDIA ST DEVIATION AND MODERATE T-WAVE ABNORMALITY, CONSIDER ANTERIOR ISCHEMIA [-0.1+ mV T WAVE IN V3/V4] Compared to ECG 03/13/2025 09:55:32 Atrial fibrillation no longer present Intraventricular conduction delay no longer present T-wave abnormality still present Possible ischemia still present Electronically Signed On 03-14-2025 09:01:14 [employer] by Sadi Schmidt M.D.
[2025-03-14 06:24] LABS: Hematocrit 29.8 % (37.0-47.0); Hemoglobin 8.5 g/dL (12.0-15.0); Immature Granulocyte Percent A 1.5 % (0-0.5); Lymphocytes Absolute Auto 2.63 K/mm3 (0.9-3.2); Mean Corpuscular HGB Conc 28.5 g/dl (32-36); Mean Corpuscular Hemoglobin 21.6 pg (26-34); Mean Corpuscular Volume 75.6 fl (80-100); Nucleated Red Blood Cells Absolute Auto 0.020 K/mm3 (0.0-0.012); Nucleated Red Blood Cells Perc 0.2 % (0.0-0.2); Platelet Count Result 376 k/mm3 (150-375); Red Blood Count 3.94 M/mm3 (4.2-5.4); White Blood Count 11.7 K/mm3 (4.5-10.0)
[2025-03-14 06:50] LABS: Anion Gap 7 mmol/L (4-12); Blood Urea Nitrogen 18 mg/dL (7-17); Calcium 8.5 mg/dL (8.4-10.2); Carbon Dioxide 24 mmol/L (22-30); Chloride 101 mmol/L (98-107); Estimated CRCL calculation 60 ml/min; Estimated Glomerular Filt Rate > 60; Glucose 346 mg/dL (65-110); Potassium 4.2 mmol/L (3.4-5.0); Sodium 132 mmol/L (137-145)
[2025-03-14 06:53] LABS: Partial Thromboplastin Time 89.3 Seconds (22.3-36.8)
[2025-03-14 06:58] LABS: Anisocytosis 1+; Hypochromasia 2+; Polychromasia 1+; Schistocytes None Seen; Target Cells Occasional
[2025-03-14 07:28] LABS: Hemoglobin A1C 8.4 % (<5.7)
[2025-03-14] MEDS: cefTRIAXone 1 GM in SODIUM CHLORIDE 0.9% IV 50 ML 100 ML IVPB (09:19)
[2025-03-14] MEDS: ROSUVASTATIN 20 MG TABLET PO (09:20)
[2025-03-14] MEDS: INSULIN ASPART (*BKC) 100 UNITS/ML SUB-Q ×5 (09:20→22:26)
--- NOTE | 2025-03-14 12:33 | PM.PNCARD ---
Progress Note: A&P Assessment and Plan (1) Atrial fibrillation with rapid ventricular response: Code(s): I48.91 - Unspecified atrial fibrillation Status: Acute (2) Type 2 diabetes, controlled, with neuropathy: Code(s): E11.40 - Type 2 diabetes mellitus with diabetic neuropathy, unspecified Status: Acute (3) Hyperglycemia due to type 2 diabetes mellitus: Code(s): E11.65 - Type 2 diabetes mellitus with hyperglycemia Status: Chronic (4) Bilateral pulmonary embolism: Code(s): I26.99 - Other pulmonary embolism without acute cor pulmonale Status: Acute (5) Prosthetic hip infection: Qualifiers: Encounter type: sequela Qualified Code(s): T84.59XS - Infection and inflammatory reaction due to other internal joint prosthesis, sequela; Z96.649 - Presence of unspecified artificial hip joint Code(s): T84.59XA - Infection and inflammatory reaction due to other internal joint prosthesis, initial encounter; Z96.649 - Presence of unspecified artificial hip joint Status: Acute (6) Hip fracture, right: Qualifiers: Encounter type: sequela Fracture type: closed Qualified Code(s): S72.001S - Fracture of unspecified part of neck of right femur, sequela Code(s): S72.001A - Fracture of unspecified part of neck of right femur, initial encounter for closed fracture Status: Acute Plan Impression: 1. Paroxysmal atrial fibrillation with rapid ventricular response. Admitted with heart rate of 120-136 per minute with atrial fibrillation. EKG shows left bundle branch block. Recent diagnosis of atrial fibrillation. Patient stopped medication while at the alf including blood thinners. Patient converted to normal sinus rhythm overnight on IV Cardizem. 2. Complaints of left upper sided chest pain and left shoulder pain appears to be atypical in nature. Cardiac enzymes are not suggestive of acute coronary syndrome. CT scan of the chest positive for pulmonary embolism bilaterally. 3. History of right hip fracture followed by infection of the right hip prosthesis. Patient is on chronic bedridden condition since January of 2025. 4. Type 2 diabetes with uncontrolled blood sugar. 5. Elevated proBNP at 2930. CT angiogram is positive for scattered bilateral segmental pulmonary embolism. Mild clot burden is noted. Right heart strain could not be excluded. Chest x-ray negative for congestive heart failure. Patient could have chronic diastolic heart failure. Recommendations: 1. Currently blood pressure is 126/57 and heart rate is 70 per minute. Monitor shows normal sinus rhythm. 2. Echocardiogram performed today shows normal left ventricular size and systolic function estimated at 55-60%. Patient has diastolic dysfunction with moderately enlarged left atrium and moderate mitral annular calcification. Moderate pulmonary hypertension noted at 52 mm of mercury . 3. Will decrease and discontinue IV Cardizem drip. Increase Cardizem to 60 mg t.i.d... Continue with the rosuvastatin 20 mg at bedtime. DC IV Cardizem and continue patient on apixaban 5 mg b.i.d.. 4. Very high blood sugar on admission. Patient will likely need addition of insulin in her therapy. Renal function is normal. 5. Okay to transfer patient out of a.m. you as long as remains in normal sinus rhythm. Since patient is bedridden and had a recent test pulmonary emboli, will not pursue with nuclear stress test at this time. Continue with medical management as above. Subjective Date/time seen: 03/14/25 12:33 Interval history: Review of HPI: Patient is a 74-year-old female admitted with a left-sided and left upper arm pain which started about 2:00 a.m. this morning. Patient had recent surgery on the right leg in January of 2025 with complication with titanium corrina. Patient is bed-bound since then. Patient was apparently found to have atrial fibrillation last admission and was started on medication as well as oral anticoagulation therapy. While in the alf patient did not get along and decided to stop stop all her medications. When EMS picked her up her heart rate was 150 per minute and blood sugar was 592. 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 No associated fever or chills. No complaints of abdominal pain, nausea vomiting or diarrhea. Admitting blood pressure was 131/64 and heart rate was 141 per minute. Patient was afebrile and O2 saturation was 100% on room air. Admitting laboratory data revealed mildly elevated WBC count at 11.2. Hemoglobin is 9.9 and platelets are normal. Sodium is 133, potassium is 4.7, BUN is 16, creatinine 0.6. Platelets are normal. Blood sugar was more than 500 on admission slowly decreased to 447 and 389. Cardiac troponin is 0.013 followed by 0.016. Subjective: Patient was examined at bedside. Patient appears to be comfortable without shortness of breath, chest pain or arm pain. Monitor shows conversion to normal sinus rhythm. One hundred seventy per minute. Review of Systems Review of Systems: Twelve point review of system was completed. Pertinent positive and negative findings per HPI. Exam Narrative: Patient was examined at the bedside. Patient is awake alert appears to be comfortable without acute distress. Answer questions. Head and neck examination is unremarkable. Sclerae is nonicteric. ENT examination is negative. Neck is supple. There is no JVD or carotid bruit. Thyroid is not enlarged. Lungs are clear to auscultation percussion. Heart sounds reveal irregularly irregular rhythm. Soft systolic murmur is noted. There is no S3 or S4. Abdomen is soft and nondistended. There is nontender. There is no hepatosplenomegaly bowel sounds present. Extremities revealed no pedal edema at this time. Neurological examination is intact. Objective Data Vital Signs Vital Signs: Vital Signs - 24 hr 03/13/25 13:15 03/13/25 14:35 03/13/25 15:04 Temperature 36.8 C Pulse Rate 122 H 129 H Respiratory Rate 24 H 17 Blood Pressure 125/70 126/78 Pulse Oximetry 94 94 Oxygen Delivery Room Air 03/13/25 16:00 03/13/25 16:00 03/13/25 16:33 Temperature 36.8 C Pulse Rate 113 H 121 H 130 H Respiratory Rate 20 Blood Pressure 132/71 132/54 L Pulse Oximetry 95 Oxygen Delivery 03/13/25 16:34 03/13/25 18:00 03/13/25 18:05 Temperature Pulse Rate 132 H 127 H 117 H Respiratory Rate Blood Pressure 132/54 L 132/74 Pulse Oximetry Oxygen Delivery 03/13/25 20:00 03/13/25 20:00 03/13/25 20:00 Temperature 36.5 C Pulse Rate 105 H 105 H 105 H Respiratory Rate 16 16 Blood Pressure 104/60 Pulse Oximetry 95 95 Oxygen Delivery Room Air 03/13/25 20:00 03/13/25 22:00 03/13/25 22:00 Temperature Pulse Rate 105 H 119 H 119 H Respiratory Rate Blood Pressure 104/60 120/55 L Pulse Oximetry Oxygen Delivery 03/13/25 22:00 03/13/25 23:25 03/13/25 23:25 Temperature Pulse Rate 119 H 92 92 Respiratory Rate Blood Pressure 120/55 L 109/73 109/73 Pulse Oximetry Oxygen Delivery 03/13/25 23:41 03/13/25 23:41 03/13/25 23:56 Temperature 36.4 C L Pulse Rate 92 92 96 Respiratory Rate 16 18 Blood Pressure 109/73 Pulse Oximetry 95 93 Oxygen Delivery Room Air 03/14/25 00:00 03/14/25 02:00 03/14/25 02:00 Temperature Pulse Rate 96 97 97 Respiratory Rate Blood Pressure 107/62 Pulse Oximetry Oxygen Delivery 03/14/25 02:00 03/14/25 03:59 03/14/25 04:00 Temperature 36.3 C L Pulse Rate 97 107 H 94 Respiratory Rate 18 18 Blood Pressure 107/62 115/64 Pulse Oximetry 97 97 Oxygen Delivery Room Air 03/14/25 04:00 03/14/25 05:36 03/14/25 05:36 Temperature Pulse Rate 94 126 H 126 H Respiratory Rate Blood Pressure 134/63 134/63 Pulse Oximetry Oxygen Delivery 03/14/25 06:00 03/14/25 06:00 03/14/25 06:12 Temperature Pulse Rate 126 H 126 H 55 L Respiratory Rate Blood Pressure 134/63 Pulse Oximetry 100 Oxygen Delivery 03/14/25 06:29 03/14/25 07:59 03/14/25 08:00 Temperature 36.7 C Pulse Rate 55 L 96 66 Respiratory Rate 24 H Blood Pressure 126/57 L Pulse Oximetry 95 Oxygen Delivery 03/14/25 08:00 03/14/25 10:00 Temperature Pulse Rate 71 71 Respiratory Rate 24 H Blood Pressure Pulse Oximetry 95 Oxygen Delivery Room Air Intake/Output Intake/Output: Intake & Output 03/11/25 03/12/25 03/13/25 03/14/25 23:59 23:59 23:59 23:59 Intake Total 1358.1 543.6 Balance 1358.1 543.6 Meds/Results Medications: Active Medications Generic Name Dose Route Start Last Admin Trade Name Freq PRN Reason Stop Dose Admin Acetaminophen 650 mg 03/13/25 11:00 Acetaminophen 325 Mg Tablet PO Q4H PRN Mild Pain (1-3) or Fever Albuterol 2 puff 03/13/25 15:35 Albuterol Sulfate (*Sp) Aerosol 1 Puff INHALATION Q6HRT PRN Shortness Of Breath Or Wheezin Dextrose 12.5 gm 03/13/25 11:00 Dextrose 50% 25 Gm/50 Ml Syringe IV PUSH PRN PRN Hypoglycemia Protocol Diltiazem HCl 30 mg 03/13/25 18:00 03/14/25 05:37 Diltiazem Hcl 30 Mg Tablet PO 30 mg Q6HR ARIANNE Administration Gabapentin 600 mg 03/13/25 21:00 03/13/25 21:05 Gabapentin 300 Mg Capsule PO 600 mg QHS ARIANNE Administration Glucagon 1 mg 03/13/25 11:00 Glucagon For Inj 1 Mg Vial IM PRN PRN Hypoglycemia Protocol Glucose 15 gm 03/13/25 11:00 Glucose Oral Gel 15 Gm Of Glucse In 37.5 Gm Tube PO PRN PRN Hypoglycemia Protocol Heparin Sodium (Porcine) 5,500 units 03/13/25 10:59 Heparin Sodium 5,000 Units/Ml Vial IV PUSH PRN PRN aPTT less than 55 seconds Heparin Sodium (Porcine) 2,500 units 03/13/25 10:59 03/13/25 23:51 Heparin Sodium 5,000 Units/Ml Vial IV PUSH 2,500 units PRN PRN Administration aPTT 55 - 70 seconds Heparin Sodium/Dextrose 25,000 units in 250 mls @ 13 mls/hr 03/13/25 11:00 03/14/25 07:00 Heparin Sodium/D5w 100 Units/Ml IV CONT 1,300 units/hr .[id number] ARIANNE 13 mls/hr Protocol Titration 1,300 UNITS/HR Dextrose 1,000 mls @ 100 mls/hr 03/13/25 11:00 Dextrose 5% 1,000 Ml IVPB PRN PRN Hypoglycemia Protocol Ceftriaxone Sodium 1 gm/ 50 mls @ 100 mls/hr 03/14/25 08:00 03/14/25 09:19 Sodium Chloride IVPB 100 mls/hr Q24H ARIANNE Administration Insulin Aspart 4 - 8 units 03/13/25 17:00 03/14/25 09:20 Insulin Aspart (*Bkc) 100 Units/Ml SUB-Q 8 units TIDWM [facility] Administration Protocol Insulin Aspart 2 - 4 units 03/13/25 21:00 03/13/25 21:06 Insulin Aspart (*Bkc) 100 Units/Ml SUB-Q 3 units HS [facility] Administration Protocol Insulin Glargine 44 units 03/13/25 21:00 03/13/25 21:06 Insulin Glargine (*Bkc) 100 Units/Ml SUB-Q 44 units HS ARIANNE Administration Ondansetron HCl 4 mg 03/13/25 11:00 Ondansetron Inj 4 Mg/2 Ml Vial IV PUSH Q4H PRN Nausea Ropinirole HCl 1 mg 03/13/25 21:00 03/13/25 21:05 Ropinirole Hcl 1 Mg Tablet PO 1 mg HS ARIANNE Administration Rosuvastatin Calcium 20 mg 03/14/25 09:00 03/14/25 09:20 Rosuvastatin 20 Mg Tablet PO 20 mg DAILY ARIANNE Administration Radiology Results: ITS Impressions Chest X-Ray 03/13/25 07:08 IMPRESSION: 1. Small patchy foci airspace disease left lung versus soft tissue artifact. Can consider PA and lateral films with deep inspiration. Chest CTA 03/13/25 08:10 IMPRESSION: 1. Scattered bilateral segmental PE. Mild clot burden. 2. Right heart strain not excluded. Venous Doppler Study 03/13/25 20:16 IMPRESSION: 1: No left lower extremity deep venous thrombosis. Nondiagnostic study of the right lower extremity veins. Labs Labs: Laboratory Results - last 24 hr 03/13/25 03/13/25 03/13/25 14:43 16:30 17:23 WBC RBC Hgb Hct MCV MCH MCHC RDW Plt Count MPV Immature Gran % (Auto) Neut % (Auto) Lymph % (Auto) [place] % (Auto) Eos % (Auto) Baso % (Auto) Lymph # (Auto) [place] # (Auto) Eos # (Auto) Baso # (Auto) Abs Immat Gran (auto) Absolute Neuts (auto) Absolute Nucleated RBC Band Neutrophils % Nucleated RBC % Platelet Estimate Polychromasia Hypochromasia Anisocytosis Target Cells Schistocytes APTT 96.1 H Sodium Potassium Chloride Carbon Dioxide Anion Gap BUN Creatinine Estim Creat Clear Calc Estimated GFR Glucose POC Capillary Glucose 354 H Hemoglobin A1c Calcium Iron 31 L TIBC 400 % Saturation 8 L Ferritin 23.50 Troponin I 0.016 D Vitamin B12 860.0 Folate 2.6 L 03/13/25 03/13/25 03/14/25 20:49 23:14 06:10 WBC 11.7 H RBC 3.94 L Hgb 8.5 L Hct 29.8 L MCV 75.6 L MCH 21.6 L MCHC 28.5 L RDW 18.5 H Plt Count 376 H MPV 9.4 Immature Gran % (Auto) 1.5 H Neut % (Auto) 71.0 Lymph % (Auto) 22.4 [place] % (Auto) 4.1 Eos % (Auto) 0.6 Baso % (Auto) 0.4 Lymph # (Auto) 2.63 [place] # (Auto) 0.5 Eos # (Auto) 0.1 Baso # (Auto) 0.1 Abs Immat Gran (auto) 0.18 H Absolute Neuts (auto) 8.3 H Absolute Nucleated RBC 0.020 H Band Neutrophils % Not Reportable Nucleated RBC % 0.2 Platelet Estimate Adequate Polychromasia 1+ Hypochromasia 2+ Anisocytosis 1+ Target Cells Occasional Schistocytes None seen APTT 62.6 H 89.3 H Sodium 132 L Potassium 4.2 Chloride 101 Carbon Dioxide 24 Anion Gap 7 BUN 18 H Creatinine 0.65 L Estim Creat Clear Calc 60 Estimated GFR > 60 Glucose 346 H POC Capillary Glucose 303 H Hemoglobin A1c 8.4 H Calcium 8.5 Iron TIBC % Saturation Ferritin Troponin I Vitamin B12 Folate 03/14/25 03/14/25 07:18 12:11 WBC RBC Hgb Hct MCV MCH MCHC RDW Plt Count MPV Immature Gran % (Auto) Neut % (Auto) Lymph % (Auto) [place] % (Auto) Eos % (Auto) Baso % (Auto) Lymph # (Auto) [place] # (Auto) Eos # (Auto) Baso # (Auto) Abs Immat Gran (auto) Absolute Neuts (auto) Absolute Nucleated RBC Band Neutrophils % Nucleated RBC % Platelet Estimate Polychromasia Hypochromasia Anisocytosis Target Cells Schistocytes APTT Sodium Potassium Chloride Carbon Dioxide Anion Gap BUN Creatinine Estim Creat Clear Calc Estimated GFR Glucose POC Capillary Glucose 374 H 364 H Hemoglobin A1c Calcium Iron TIBC % Saturation Ferritin Troponin I Vitamin B12 Folate
[2025-03-14 13:22] LABS: Partial Thromboplastin Time 73.5 Seconds (22.3-36.8)
--- NOTE | 2025-03-14 13:50 | PM.IMPN ---
Progress Note: A&P Assessment and Plan (1) Chest pain: Qualifiers: Chest pain type: other chest pain Qualified Code(s): R07.89 - Other chest pain Code(s): R07.9 - Chest pain, unspecified Status: Acute (2) Atrial fibrillation with rapid ventricular response: Code(s): I48.91 - Unspecified atrial fibrillation Status: Acute (3) Bilateral pulmonary embolism: Code(s): I26.99 - Other pulmonary embolism without acute cor pulmonale Status: Acute (4) UTI (urinary tract infection), bacterial: Code(s): N39.0 - Urinary tract infection, site not specified; A49.9 - Bacterial infection, unspecified Status: Chronic Plan 74 y/o F with PMH of atrial fibrillation on anticoagulation, diabetes, and hyperlipidemia presents here with chest pain. The patient presents here from home via EMS on 03/13 for further evaluation of chest pain. She reports onset of left-sided chest pain around 2:00 a.m. this morning. She describes the pain as dull, nonradiating, constant, with no modifying factors. Denies nausea, vomiting, shortness of breath, diaphoresis, palpitations, leg pain or swelling. The patient also notes that she had a recent right hip surgery performed in [place] in Jan. After her hospitalization for this surgery she required rehab services for short period and was subsequently [facility]. She reports she stayed there for approximately 1-2 weeks but ultimately signed herself out AMA on 03/08/2025 due to concerns about the facility. She states they left her in a depends for almost 24 hours and she was concerned they were tainting her medications. She reports she refused medications from them the whole time she was there, states she has been off her home medications for the last 2-3 weeks. Since leaving the facility, she has not taken any of her home medications but did make an appt with her PCP on Sunday 03/18 to try to have them filled. Per EMS upon their arrival the patient was in AFib RVR with a rate in the 150s and had a glucose of 592. She was given a 500 mL bolus prior to arrival. Her initial glucose at this facility was 478. She is currently reporting XX. Initial VS at presentation: 98? F, HR 141, R 20, 131/64, and 100% on RA. ED workup showed: WBC 11.2, hemoglobin 9.9 (11.6 on 01/31/2025), D-dimer elevated, VBG virtually unremarkable, sodium 133, creatinine 0.61 and GFR >60, glucose 43, initial troponin 0.014, beta hydroxy 0.71. UA showed indicators of infection with no epithelial cells. Viral PCR negative. CXR showed small patchy foci airspace disease in the left lung versus soft tissue artifact. Chest CTA showed scattered bilateral segmental PE, mild clot burden, right heart strain not excluded. ----- Patient has been transition back to her Eliquis. Encourage compliance. Monitor for any complications of bilateral pulmonary embolism. Bilateral lower extremity venous ultrasound demonstrates no DVT in left lower extremity, unable to complete exam on the right lower extremity due to patient intolerance. Surface echocardiogram reveals normal ventricular systolic function, abnormal diastolic dysfunction. Patient converted to normal sinus rhythm on IV Cardizem. Transition to p.o. Cardizem per Cardiology. Transfer to medical floor with telemetry. Blood sugars uncontrolled. Patient is refusing some of her meals therefore would be prudent to forego aggressive increase in insulin. At this time, continue his Lantus 44 units q.h.s.. Will add 4 units of lispro t.i.d. with meals. HbA1c is only a 8.4%. Probably has acute uncontrolled blood sugars in the 300s due to acute PE and/or UTI. As for the UTI, continue ceftriaxone. Awaiting urine culture. ----- Full code. Continue Eliquis. Diabetic heart healthy diet. Saline lock IV. Subjective Date/time seen: 03/14/25 13:50 Interval history: No major acute overnight events. Patient refused to be examined/interviewed. Review of Systems Review of Systems: All systems reviewed & are unremarkable except as noted in HPI and below (Unable to obtain due to patient's refusal) Exam Narrative: Patient refused. Refer to accessories repairer progress note Objective Data Vital Signs Vital Signs: Vital Signs - 24 hr 03/13/25 14:35 03/13/25 15:04 03/13/25 16:00 Temperature 98.3 F 98.3 F Pulse Rate 129 H 113 H Respiratory Rate 17 20 Blood Pressure 126/78 132/71 Pulse Oximetry 94 95 Oxygen Delivery Room Air 03/13/25 16:00 03/13/25 16:33 03/13/25 16:34 Temperature Pulse Rate 121 H 130 H 132 H Respiratory Rate Blood Pressure 132/54 L 132/54 L Pulse Oximetry Oxygen Delivery 03/13/25 18:00 03/13/25 18:05 03/13/25 20:00 Temperature 97.7 F Pulse Rate 127 H 117 H 105 H Respiratory Rate 16 Blood Pressure 132/74 104/60 Pulse Oximetry 95 Oxygen Delivery 03/13/25 20:00 03/13/25 20:00 03/13/25 20:00 Temperature Pulse Rate 105 H 105 H 105 H Respiratory Rate 16 Blood Pressure 104/60 Pulse Oximetry 95 Oxygen Delivery Room Air 03/13/25 22:00 03/13/25 22:00 03/13/25 22:00 Temperature Pulse Rate 119 H 119 H 119 H Respiratory Rate Blood Pressure 120/55 L 120/55 L Pulse Oximetry Oxygen Delivery 03/13/25 23:25 03/13/25 23:25 03/13/25 23:41 Temperature Pulse Rate 92 92 92 Respiratory Rate 16 Blood Pressure 109/73 109/73 Pulse Oximetry 95 Oxygen Delivery Room Air 03/13/25 23:41 03/13/25 23:56 03/14/25 00:00 Temperature 97.5 F L Pulse Rate 92 96 96 Respiratory Rate 18 Blood Pressure 109/73 Pulse Oximetry 93 Oxygen Delivery 03/14/25 02:00 03/14/25 02:00 03/14/25 02:00 Temperature Pulse Rate 97 97 97 Respiratory Rate Blood Pressure 107/62 107/62 Pulse Oximetry Oxygen Delivery 03/14/25 03:59 03/14/25 04:00 03/14/25 04:00 Temperature 97.3 F L Pulse Rate 107 H 94 94 Respiratory Rate 18 18 Blood Pressure 115/64 Pulse Oximetry 97 97 Oxygen Delivery Room Air 03/14/25 05:36 03/14/25 05:36 03/14/25 06:00 Temperature Pulse Rate 126 H 126 H 126 H Respiratory Rate Blood Pressure 134/63 134/63 Pulse Oximetry Oxygen Delivery 03/14/25 06:00 03/14/25 06:12 03/14/25 06:29 Temperature Pulse Rate 126 H 55 L 55 L Respiratory Rate Blood Pressure 134/63 Pulse Oximetry 100 Oxygen Delivery 03/14/25 07:59 03/14/25 08:00 03/14/25 08:00 Temperature 98.0 F Pulse Rate 96 66 71 Respiratory Rate 24 H 24 H Blood Pressure 126/57 L Pulse Oximetry 95 95 Oxygen Delivery Room Air 03/14/25 10:00 03/14/25 12:00 03/14/25 12:00 Temperature 98.1 F Pulse Rate 71 74 Respiratory Rate 16 Blood Pressure 132/61 Pulse Oximetry 96 Oxygen Delivery Room Air 03/14/25 12:51 Temperature Pulse Rate 75 Respiratory Rate Blood Pressure 132/61 Pulse Oximetry Oxygen Delivery Intake/Output Intake/Output: Intake & Output 03/11/25 03/12/25 03/13/25 03/14/25 23:59 23:59 23:59 23:59 Intake Total 1358.1 789.9 Balance 1358.1 789.9 Meds/Results Medications: Active Medications Generic Name Dose Route Start Last Admin Trade Name Freq PRN Reason Stop Dose Admin Acetaminophen 650 mg 03/13/25 11:00 Acetaminophen 325 Mg Tablet PO Q4H PRN Mild Pain (1-3) or Fever Albuterol 2 puff 03/13/25 15:35 Albuterol Sulfate (*Sp) Aerosol 1 Puff INHALATION Q6HRT PRN Shortness Of Breath Or Wheezin Apixaban 5 mg 03/14/25 21:00 Apixaban 5 Mg Tablet PO Q12HR [facility] Dextrose 12.5 gm 03/13/25 11:00 Dextrose 50% 25 Gm/50 Ml Syringe IV PUSH PRN PRN Hypoglycemia Protocol Diltiazem HCl 60 mg 03/14/25 18:00 Diltiazem Hcl 60 Mg Tablet PO Q6HR ARIANNE Gabapentin 600 mg 03/13/25 21:00 03/13/25 21:05 Gabapentin 300 Mg Capsule PO 600 mg QHS [facility] Administration Glucose 15 gm 03/13/25 11:00 Glucose Oral Gel 15 Gm Of Glucse In 37.5 Gm Tube PO PRN PRN Hypoglycemia Protocol Dextrose 1,000 mls @ 100 mls/hr 03/13/25 11:00 Dextrose 5% 1,000 Ml IVPB PRN PRN Hypoglycemia Protocol Ceftriaxone Sodium 1 gm/ 50 mls @ 100 mls/hr 03/14/25 08:00 03/14/25 12:51 Sodium Chloride IVPB Infused Q24H [facility] Infusion Insulin Aspart 4 - 8 units 03/13/25 17:00 03/14/25 12:53 Insulin Aspart (*Bkc) 100 Units/Ml SUB-Q 8 units TIDWM [facility] Administration Protocol Insulin Aspart 2 - 4 units 03/13/25 21:00 03/13/25 21:06 Insulin Aspart (*Bkc) 100 Units/Ml SUB-Q 3 units HS ARIANNE Administration Protocol Insulin Aspart 4 units 03/14/25 17:00 Insulin Aspart (*Bkc) 100 Units/Ml 0.05 units/kg (4 units) SUB-Q TIDWM [facility] Insulin Glargine 44 units 03/13/25 21:00 03/13/25 21:06 Insulin Glargine (*Bkc) 100 Units/Ml SUB-Q 44 units HS ARIANNE Administration Ondansetron HCl 4 mg 03/13/25 11:00 Ondansetron Inj 4 Mg/2 Ml Vial IV PUSH Q4H PRN Nausea Ropinirole HCl 1 mg 03/13/25 21:00 03/13/25 21:05 Ropinirole Hcl 1 Mg Tablet PO 1 mg HS ARIANNE Administration Rosuvastatin Calcium 20 mg 03/14/25 09:00 03/14/25 09:20 Rosuvastatin 20 Mg Tablet PO 20 mg DAILY ARIANNE Administration Radiology Results: ITS Impressions Chest X-Ray 03/13/25 07:08 IMPRESSION: 1. Small patchy foci airspace disease left lung versus soft tissue artifact. Can consider PA and lateral films with deep inspiration. Chest CTA 03/13/25 08:10 IMPRESSION: 1. Scattered bilateral segmental PE. Mild clot burden. 2. Right heart strain not excluded. Venous Doppler Study 03/13/25 20:16 IMPRESSION: 1: No left lower extremity deep venous thrombosis. Nondiagnostic study of the right lower extremity veins. Labs Labs: Laboratory Results - last 24 hr 03/13/25 03/13/25 03/13/25 14:43 16:30 17:23 WBC RBC Hgb Hct MCV MCH MCHC RDW Plt Count MPV Immature Gran % (Auto) Neut % (Auto) Lymph % (Auto) [place] % (Auto) Eos % (Auto) Baso % (Auto) Lymph # (Auto) [place] # (Auto) Eos # (Auto) Baso # (Auto) Abs Immat Gran (auto) Absolute Neuts (auto) Absolute Nucleated RBC Band Neutrophils % Nucleated RBC % Platelet Estimate Polychromasia Hypochromasia Anisocytosis Target Cells Schistocytes APTT 96.1 H Sodium Potassium Chloride Carbon Dioxide Anion Gap BUN Creatinine Estim Creat Clear Calc Estimated GFR Glucose POC Capillary Glucose 354 H Hemoglobin A1c Calcium Iron 31 L TIBC 400 % Saturation 8 L Ferritin 23.50 Troponin I 0.016 D Vitamin B12 860.0 Folate 2.6 L 03/13/25 03/13/25 03/14/25 20:49 23:14 06:10 WBC 11.7 H RBC 3.94 L Hgb 8.5 L Hct 29.8 L MCV 75.6 L MCH 21.6 L MCHC 28.5 L RDW 18.5 H Plt Count 376 H MPV 9.4 Immature Gran % (Auto) 1.5 H Neut % (Auto) 71.0 Lymph % (Auto) 22.4 [place] % (Auto) 4.1 Eos % (Auto) 0.6 Baso % (Auto) 0.4 Lymph # (Auto) 2.63 [place] # (Auto) 0.5 Eos # (Auto) 0.1 Baso # (Auto) 0.1 Abs Immat Gran (auto) 0.18 H Absolute Neuts (auto) 8.3 H Absolute Nucleated RBC 0.020 H Band Neutrophils % Not Reportable Nucleated RBC % 0.2 Platelet Estimate Adequate Polychromasia 1+ Hypochromasia 2+ Anisocytosis 1+ Target Cells Occasional Schistocytes None seen APTT 62.6 H 89.3 H Sodium 132 L Potassium 4.2 Chloride 101 Carbon Dioxide 24 Anion Gap 7 BUN 18 H Creatinine 0.65 L Estim Creat Clear Calc 60 Estimated GFR > 60 Glucose 346 H POC Capillary Glucose 303 H Hemoglobin A1c 8.4 H Calcium 8.5 Iron TIBC % Saturation Ferritin Troponin I Vitamin B12 Folate 03/14/25 03/14/25 03/14/25 07:18 12:11 12:47 WBC RBC Hgb Hct MCV MCH MCHC RDW Plt Count MPV Immature Gran % (Auto) Neut % (Auto) Lymph % (Auto) [place] % (Auto) Eos % (Auto) Baso % (Auto) Lymph # (Auto) [place] # (Auto) Eos # (Auto) Baso # (Auto) Abs Immat Gran (auto) Absolute Neuts (auto) Absolute Nucleated RBC Band Neutrophils % Nucleated RBC % Platelet Estimate Polychromasia Hypochromasia Anisocytosis Target Cells Schistocytes APTT 73.5 H Sodium Potassium Chloride Carbon Dioxide Anion Gap BUN Creatinine Estim Creat Clear Calc Estimated GFR Glucose POC Capillary Glucose 374 H 364 H Hemoglobin A1c Calcium Iron TIBC % Saturation Ferritin Troponin I Vitamin B12 Folate
[2025-03-14] MEDS: GABAPENTIN 300 MG CAPSULE 600 MG PO (22:18)
[2025-03-14] MEDS: APIXABAN 5 MG TABLET PO (22:18)
[2025-03-14] MEDS: INSULIN GLARGINE (*BKC) 100 UNITS/ML 44 UNITS SUB-Q (22:20)
--- NOTE | 2025-03-14 23:45 | PC.NURSE ---
Pt SBAR faxed at [phone]. This RN called to give report at 2312 and was told that RN was in a Pt's room and would call back to get report when available. Report called to AIDA Casillas. at 2325. This patient, Brook Hansen, was transferred to room 319 on 03/14/25 at 2329 Personal belongings sent with patient. Report given to AIDA Casillas. Appropriate documentation sent with patient. Pt did not want her significant other called to be notified of room transfer at this time. Pt states that she will call him in the AM.
[2025-03-15] VITALS (8 sets, daily range): BP systolic 139–143; BP diastolic 60–66; PULSE 71–75; RESP 16–18; TEMP 35.7–36.7; O2SAT 93–96
[2025-03-15 06:22] LABS: Hematocrit 30.1 % (37.0-47.0); Hemoglobin 8.4 g/dL (12.0-15.0); Immature Granulocyte Percent A 1.4 % (0-0.5); Lymphocytes Absolute Auto 1.51 K/mm3 (0.9-3.2); Mean Corpuscular HGB Conc 27.9 g/dl (32-36); Mean Corpuscular Hemoglobin 21.3 pg (26-34); Mean Corpuscular Volume 76.2 fl (80-100); Nucleated Red Blood Cells Absolute Auto 0.000 K/mm3 (0.0-0.012); Nucleated Red Blood Cells Perc 0.0 % (0.0-0.2); Platelet Count Result 317 k/mm3 (150-375); Red Blood Count 3.95 M/mm3 (4.2-5.4); White Blood Count 9.8 K/mm3 (4.5-10.0)
[2025-03-15 06:49] LABS: Anion Gap 4 mmol/L (4-12); Blood Urea Nitrogen 17 mg/dL (7-17); Calcium 8.9 mg/dL (8.4-10.2); Carbon Dioxide 27 mmol/L (22-30); Chloride 102 mmol/L (98-107); Estimated CRCL calculation 64 ml/min; Estimated Glomerular Filt Rate > 60; Glucose 319 mg/dL (65-110); Magnesium 1.8 mg/dL (1.6-2.3); Potassium 4.3 mmol/L (3.4-5.0); Sodium 133 mmol/L (137-145)
[2025-03-15 07:01] LABS: Procalcitonin 0.1 ng/mL
[2025-03-15 07:11] LABS: Anisocytosis 1+; Hypochromasia 2+; Schistocytes None Seen
[2025-03-15 07:12] LABS: Poikilocytosis Occasional
[2025-03-15 07:14] LABS: Polychromasia Occasional
[2025-03-15] MEDS: cefTRIAXone 1 GM in SODIUM CHLORIDE 0.9% IV 50 ML 100 ML IVPB (08:33)
[2025-03-15] MEDS: ROSUVASTATIN 20 MG TABLET PO (08:33)
[2025-03-15] MEDS: APIXABAN 5 MG TABLET PO ×2 (08:33→22:18)
[2025-03-15] MEDS: INSULIN ASPART (*BKC) 100 UNITS/ML SUB-Q ×7 (08:34→22:37)
--- NOTE | 2025-03-15 09:15 | P.CDI_ITS ---
<Statement entered by Devi Steel MD - 03/19/25 16:17> This documentation has been reviewed and approved. Severe protein calorie malnutrition CDI Query Clarification Request BMI: 25.6 Nutritional Diagnostic Statement: Please refer to the comprehensive nutrition assessment for further information. If you agree with diagnosis of Severe protein calorie malnutrition related to chronic loss of appetite, recent surgery as evidenced by weight loss -23% (47 lb)/6 months; intakes <75% needs >1 month; moderate muscle wasting to temporalis, clavicles. Please specify severity if known: * Mild * Moderate * Severe * Other/Unknown
--- NOTE | 2025-03-15 12:03 | PM.PNCARD ---
Progress Note: A&P Assessment and Plan (1) Atrial fibrillation with rapid ventricular response: Code(s): I48.91 - Unspecified atrial fibrillation Status: Acute (2) Type 2 diabetes, controlled, with neuropathy: Code(s): E11.40 - Type 2 diabetes mellitus with diabetic neuropathy, unspecified Status: Acute (3) Hyperglycemia due to type 2 diabetes mellitus: Code(s): E11.65 - Type 2 diabetes mellitus with hyperglycemia Status: Chronic (4) Bilateral pulmonary embolism: Code(s): I26.99 - Other pulmonary embolism without acute cor pulmonale Status: Acute (5) Prosthetic hip infection: Qualifiers: Encounter type: sequela Qualified Code(s): T84.59XS - Infection and inflammatory reaction due to other internal joint prosthesis, sequela; Z96.649 - Presence of unspecified artificial hip joint Code(s): T84.59XA - Infection and inflammatory reaction due to other internal joint prosthesis, initial encounter; Z96.649 - Presence of unspecified artificial hip joint Status: Acute (6) Hip fracture, right: Qualifiers: Encounter type: sequela Fracture type: closed Qualified Code(s): S72.001S - Fracture of unspecified part of neck of right femur, sequela Code(s): S72.001A - Fracture of unspecified part of neck of right femur, initial encounter for closed fracture Status: Acute Plan Impression: 1. Paroxysmal atrial fibrillation with rapid ventricular response. Admitted with heart rate of 120-136 per minute with atrial fibrillation. EKG shows left bundle branch block. Recent diagnosis of atrial fibrillation. Patient stopped medication while at the intermediate including blood thinners. Patient converted to normal sinus rhythm overnight on IV Cardizem. 2. Complaints of left upper sided chest pain and left shoulder pain appears to be atypical in nature. Cardiac enzymes are not suggestive of acute coronary syndrome. CT scan of the chest positive for pulmonary embolism bilaterally. 3. History of right hip fracture followed by infection of the right hip prosthesis. Patient is on chronic bedridden condition since January of 2025. 4. Type 2 diabetes with uncontrolled blood sugar. 5. Elevated proBNP at 2930. CT angiogram is positive for scattered bilateral segmental pulmonary embolism. Mild clot burden is noted. Right heart strain could not be excluded. Chest x-ray negative for congestive heart failure. Patient could have chronic diastolic heart failure. Recommendations: 1. Currently vital signs are stable and heart rate is 72 per minute. Monitor shows normal sinus rhythm. 2. Echocardiogram performed today shows normal left ventricular size and systolic function estimated at 55-60%. Patient has diastolic dysfunction with moderately enlarged left atrium and moderate mitral annular calcification. Moderate pulmonary hypertension noted at 52 mm of mercury . 3. Will decrease and discontinue IV Cardizem drip. Increase Cardizem to 60 mg t.i.d... Continue with the rosuvastatin 20 mg at bedtime. DC IV Cardizem and continue patient on apixaban 5 mg b.i.d.. Patient is off the Cardizem drip and remains in normal sinus rhythm with heart rate of 74 per minute. 4. Very high blood sugar on admission. Patient will likely need addition of insulin in her therapy. Renal function is normal. 5. Patient is clear from cardiology viewpoint to be transfer back to rehab. Blood pressure is 142/66 and heart rate is 72 per minute. Since patient is bedridden and had a recent test pulmonary emboli, will not pursue with nuclear stress test at this time. Continue with medical management as above. Subjective Date/time seen: 03/15/25 12:03 Interval history: Review of HPI: Patient is a 74-year-old female admitted with a left-sided and left upper arm pain which started about 2:00 a.m. this morning. Patient had recent surgery on the right leg in January of 2025 with complication with titanium corrina. Patient is bed-bound since then. Patient was apparently found to have atrial fibrillation last admission and was started on medication as well as oral anticoagulation therapy. While in the intermediate patient did not get along and decided to stop stop all her medications. When EMS picked her up her heart rate was 150 per minute and blood sugar was 592. 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 No associated fever or chills. No complaints of abdominal pain, nausea vomiting or diarrhea. Admitting blood pressure was 131/64 and heart rate was 141 per minute. Patient was afebrile and O2 saturation was 100% on room air. Admitting laboratory data revealed mildly elevated WBC count at 11.2. Hemoglobin is 9.9 and platelets are normal. Sodium is 133, potassium is 4.7, BUN is 16, creatinine 0.6. Platelets are normal. Blood sugar was more than 500 on admission slowly decreased to 447 and 389. Cardiac troponin is 0.013 followed by 0.016. Subjective: Patient was examined at bedside. Patient appears to be comfortable without shortness of breath, chest pain or arm pain. Monitor shows conversion to normal sinus rhythm. Blood pressure is 142/66 and heart rate is 72 per minute. Review of Systems Review of Systems: Twelve point review of system was completed. Pertinent positive and negative findings per HPI. Exam Narrative: Patient was examined at the bedside. Patient is awake alert appears to be comfortable without acute distress. Answer questions. Head and neck examination is unremarkable. Sclerae is nonicteric. ENT examination is negative. Neck is supple. There is no JVD or carotid bruit. Thyroid is not enlarged. Lungs are clear to auscultation percussion. Heart sounds reveal irregularly irregular rhythm. Soft systolic murmur is noted. There is no S3 or S4. Abdomen is soft and nondistended. There is nontender. There is no hepatosplenomegaly bowel sounds present. Extremities revealed no pedal edema at this time. Neurological examination is intact. Objective Data Vital Signs Vital Signs: Vital Signs - 24 hr 03/14/25 12:51 03/14/25 14:00 03/14/25 15:29 Temperature 36.6 C Pulse Rate 75 74 75 Respiratory Rate 16 Blood Pressure 132/61 131/55 L Pulse Oximetry 97 Oxygen Delivery 03/14/25 16:00 03/14/25 20:00 03/14/25 20:00 Temperature 36.5 C Pulse Rate 75 78 79 Respiratory Rate 16 Blood Pressure 146/57 H Pulse Oximetry 95 Oxygen Delivery 03/14/25 21:56 03/14/25 23:59 03/14/25 23:59 Temperature 36.2 C L Pulse Rate 78 75 75 Respiratory Rate 16 16 Blood Pressure 144/55 H Pulse Oximetry 95 93 Oxygen Delivery Room Air 03/15/25 01:26 03/15/25 04:00 03/15/25 05:00 Temperature 35.7 C L Pulse Rate 74 72 Respiratory Rate 18 Blood Pressure 142/66 H Pulse Oximetry 93 Oxygen Delivery Room Air 03/15/25 08:00 03/15/25 08:35 Temperature Pulse Rate 73 Respiratory Rate Blood Pressure Pulse Oximetry Oxygen Delivery Room Air Intake/Output Intake/Output: Intake & Output 03/12/25 03/13/25 03/14/25 03/15/25 23:59 23:59 23:59 23:59 Intake Total 1358.1 1089.9 920 Balance 1358.1 1089.9 920 Meds/Results Medications: Active Medications Generic Name Dose Route Start Last Admin Trade Name Freq PRN Reason Stop Dose Admin Acetaminophen 650 mg 03/13/25 11:00 Acetaminophen 325 Mg Tablet PO Q4H PRN Mild Pain (1-3) or Fever Albuterol 2 puff 03/13/25 15:35 Albuterol Sulfate (*Sp) Aerosol 1 Puff INHALATION Q6HRT PRN Shortness Of Breath Or Wheezin Apixaban 5 mg 03/14/25 21:00 03/15/25 08:33 Apixaban 5 Mg Tablet PO 5 mg Q12HR ARIANNE Administration Dextrose 12.5 gm 03/13/25 11:00 Dextrose 50% 25 Gm/50 Ml Syringe IV PUSH PRN PRN Hypoglycemia Protocol Diltiazem HCl 60 mg 03/14/25 18:00 03/15/25 06:22 Diltiazem Hcl 60 Mg Tablet PO 60 mg Q6HR ARIANNE Administration Gabapentin 600 mg 03/13/25 21:00 03/14/25 22:18 Gabapentin 300 Mg Capsule PO 600 mg QHS ARIANNE Administration Glucose 15 gm 03/13/25 11:00 Glucose Oral Gel 15 Gm Of Glucse In 37.5 Gm Tube PO PRN PRN Hypoglycemia Protocol Dextrose 1,000 mls @ 100 mls/hr 03/13/25 11:00 Dextrose 5% 1,000 Ml IVPB PRN PRN Hypoglycemia Protocol Ceftriaxone Sodium 1 gm/ 50 mls @ 100 mls/hr 03/14/25 08:00 03/15/25 08:33 Sodium Chloride IVPB 100 mls/hr Q24H ARIANNE Administration Insulin Aspart 4 - 8 units 03/13/25 17:00 03/15/25 08:34 Insulin Aspart (*Bkc) 100 Units/Ml SUB-Q 6 units TIDWM ARIANNE Administration Protocol Insulin Aspart 2 - 4 units 03/13/25 21:00 03/14/25 22:26 Insulin Aspart (*Bkc) 100 Units/Ml SUB-Q 2 units HS ARIANNE Administration Protocol Insulin Aspart 4 units 03/14/25 17:00 03/15/25 08:34 Insulin Aspart (*Bkc) 100 Units/Ml 0.05 units/kg (4 units) 4 units SUB-Q Administration TIDWM ARIANNE Insulin Glargine 44 units 03/13/25 21:00 03/14/25 22:20 Insulin Glargine (*Bkc) 100 Units/Ml SUB-Q 44 units HS ARIANNE Administration Ondansetron HCl 4 mg 03/13/25 11:00 Ondansetron Inj 4 Mg/2 Ml Vial IV PUSH Q4H PRN Nausea Ropinirole HCl 1 mg 03/13/25 21:00 03/14/25 22:18 Ropinirole Hcl 1 Mg Tablet PO 1 mg HS ARIANNE Administration Rosuvastatin Calcium 20 mg 03/14/25 09:00 03/15/25 08:33 Rosuvastatin 20 Mg Tablet PO 20 mg DAILY ARIANNE Administration Radiology Results: ITS Impressions Chest X-Ray 03/13/25 07:08 IMPRESSION: 1. Small patchy foci airspace disease left lung versus soft tissue artifact. Can consider PA and lateral films with deep inspiration. Chest CTA 03/13/25 08:10 IMPRESSION: 1. Scattered bilateral segmental PE. Mild clot burden. 2. Right heart strain not excluded. Venous Doppler Study 03/13/25 20:16 IMPRESSION: 1: No left lower extremity deep venous thrombosis. Nondiagnostic study of the right lower extremity veins. Labs Labs: Laboratory Results - last 24 hr 03/14/25 03/14/25 03/14/25 12:11 12:47 16:24 WBC RBC Hgb Hct MCV MCH MCHC RDW Plt Count MPV Immature Gran % (Auto) Neut % (Auto) Lymph % (Auto) [place] % (Auto) Eos % (Auto) Baso % (Auto) Lymph # (Auto) [place] # (Auto) Eos # (Auto) Baso # (Auto) Abs Immat Gran (auto) Absolute Neuts (auto) Absolute Nucleated RBC Band Neutrophils % Nucleated RBC % Platelet Estimate Polychromasia Hypochromasia Poikilocytosis Anisocytosis Schistocytes APTT 73.5 H Sodium Potassium Chloride Carbon Dioxide Anion Gap BUN Creatinine Estim Creat Clear Calc Estimated GFR Glucose POC Capillary Glucose 364 H 332 H Calcium Magnesium Procalcitonin 03/14/25 03/15/25 03/15/25 19:54 00:03 06:08 WBC 9.8 RBC 3.95 L Hgb 8.4 L Hct 30.1 L MCV 76.2 L MCH 21.3 L MCHC 27.9 L RDW 18.4 H Plt Count 317 MPV 8.9 Immature Gran % (Auto) 1.4 H Neut % (Auto) 76.1 H Lymph % (Auto) 15.3 L [place] % (Auto) 5.2 Eos % (Auto) 1.5 Baso % (Auto) 0.5 Lymph # (Auto) 1.51 [place] # (Auto) 0.5 Eos # (Auto) 0.2 Baso # (Auto) 0.1 Abs Immat Gran (auto) 0.14 H Absolute Neuts (auto) 7.5 H Absolute Nucleated RBC 0.000 Band Neutrophils % Not Reportable Nucleated RBC % 0.0 Platelet Estimate Adequate Polychromasia Occasional Hypochromasia 2+ Poikilocytosis Occasional Anisocytosis 1+ Schistocytes None seen APTT Sodium 133 L Potassium 4.3 Chloride 102 Carbon Dioxide 27 Anion Gap 4 BUN 17 Creatinine 0.61 L Estim Creat Clear Calc 64 Estimated GFR > 60 Glucose 319 H POC Capillary Glucose 290 H 294 H Calcium 8.9 Magnesium 1.8 Procalcitonin 0.1 03/15/25 03/15/25 07:52 11:52 WBC RBC Hgb Hct MCV MCH MCHC RDW Plt Count MPV Immature Gran % (Auto) Neut % (Auto) Lymph % (Auto) [place] % (Auto) Eos % (Auto) Baso % (Auto) Lymph # (Auto) [place] # (Auto) Eos # (Auto) Baso # (Auto) Abs Immat Gran (auto) Absolute Neuts (auto) Absolute Nucleated RBC Band Neutrophils % Nucleated RBC % Platelet Estimate Polychromasia Hypochromasia Poikilocytosis Anisocytosis Schistocytes APTT Sodium Potassium Chloride Carbon Dioxide Anion Gap BUN Creatinine Estim Creat Clear Calc Estimated GFR Glucose POC Capillary Glucose 323 H 340 H Calcium Magnesium Procalcitonin
--- NOTE | 2025-03-15 13:05 | P.PNIM_ITS ---
Progress Note: A&P Assessment and Plan (1) Atrial fibrillation with rapid ventricular response: Code(s): I48.91 - Unspecified atrial fibrillation Status: Acute Plan Patient and refusing for the patient to be returned to SNF for rehab. Refusing home health as well. The risk of doing this has been discussed. In the meantime, the patient is in normal sinus rhythm. Cardiology recommendations appreciated, continue apixaban and Cardizem. Monitor blood pressure. Elevated glucose, increase Lantus to her home dose 55 units q.h.s.. Awaiting urine culture results tailor antibiotics. There is some growth reported. For now, continue ceftriaxone. Patient wishes to be full code. Continue Eliquis. Time Spent With Patient Time with patient: Greater than 35 minutes Subjective Date/time seen: 03/15/25 13:05 Interval history: No major acute overnight events. Patient is refusing to return to SNF, per report. Consult PT/OT for evaluations. Discharge disposition ongoing. Review of Systems Review of Systems: All systems reviewed & are unremarkable except as noted in HPI and below (Subjective) Exam Const: General: comfortable and no acute distress Other: A&O x3 HENMT: Mouth: Yes moist mucous membranes Eyes: Pupils: Equal, round and reactive pupils present Neck: Neck: supple Resp: Effort & Inspection: normal respiratory effort Auscultation: clear to auscultation bilaterally Cardio: Rate: regular rate Rhythm: regular rhythm GI: Inspection: non-distended GI Palp: Yes Soft to palpation Extrem: General: no edema Objective Data Vital Signs Vital Signs: Vital Signs - 24 hr 03/14/25 14:00 03/14/25 15:29 03/14/25 16:00 Temperature 97.9 F Pulse Rate 74 75 75 Respiratory Rate 16 Blood Pressure 131/55 L Pulse Oximetry 97 Oxygen Delivery 03/14/25 20:00 03/14/25 20:00 03/14/25 21:56 Temperature 97.7 F Pulse Rate 78 79 78 Respiratory Rate 16 16 Blood Pressure 146/57 H Pulse Oximetry 95 95 Oxygen Delivery Room Air 03/14/25 23:59 03/14/25 23:59 03/15/25 01:26 Temperature 97.1 F L Pulse Rate 75 75 Respiratory Rate 16 Blood Pressure 144/55 H Pulse Oximetry 93 Oxygen Delivery Room Air 03/15/25 04:00 03/15/25 05:00 03/15/25 08:00 Temperature 96.3 F L Pulse Rate 74 72 73 Respiratory Rate 18 Blood Pressure 142/66 H Pulse Oximetry 93 Oxygen Delivery 03/15/25 08:35 Temperature Pulse Rate Respiratory Rate Blood Pressure Pulse Oximetry Oxygen Delivery Room Air Intake/Output Intake/Output: Intake & Output 03/12/25 03/13/25 03/14/25 03/15/25 23:59 23:59 23:59 23:59 Intake Total 1358.1 1089.9 920 Balance 1358.1 1089.9 920 Meds/Results Medications: Active Medications Generic Name Dose Route Start Last Admin Trade Name Freq PRN Reason Stop Dose Admin Acetaminophen 650 mg 03/13/25 11:00 Acetaminophen 325 Mg Tablet PO Q4H PRN Mild Pain (1-3) or Fever Albuterol 2 puff 03/13/25 15:35 Albuterol Sulfate (*Sp) Aerosol 1 Puff INHALATION Q6HRT PRN Shortness Of Breath Or Wheezin Apixaban 5 mg 03/14/25 21:00 03/15/25 08:33 Apixaban 5 Mg Tablet PO 5 mg Q12HR ARIANNE Administration Dextrose 12.5 gm 03/13/25 11:00 Dextrose 50% 25 Gm/50 Ml Syringe IV PUSH PRN PRN Hypoglycemia Protocol Diltiazem HCl 60 mg 03/14/25 18:00 03/15/25 12:10 Diltiazem Hcl 60 Mg Tablet PO 60 mg Q6HR ARIANNE Administration Gabapentin 600 mg 03/13/25 21:00 03/14/25 22:18 Gabapentin 300 Mg Capsule PO 600 mg QHS ARIANNE Administration Glucose 15 gm 03/13/25 11:00 Glucose Oral Gel 15 Gm Of Glucse In 37.5 Gm Tube PO PRN PRN Hypoglycemia Protocol Dextrose 1,000 mls @ 100 mls/hr 03/13/25 11:00 Dextrose 5% 1,000 Ml IVPB PRN PRN Hypoglycemia Protocol Ceftriaxone Sodium 1 gm/ 50 mls @ 100 mls/hr 03/14/25 08:00 03/15/25 08:33 Sodium Chloride IVPB 100 mls/hr Q24H ARIANNE Administration Insulin Aspart 4 - 8 units 03/13/25 17:00 03/15/25 12:10 Insulin Aspart (*Bkc) 100 Units/Ml SUB-Q 6 units TIDWM [facility] Administration Protocol Insulin Aspart 2 - 4 units 03/13/25 21:00 03/14/25 22:26 Insulin Aspart (*Bkc) 100 Units/Ml SUB-Q 2 units HS [facility] Administration Protocol Insulin Aspart 4 units 03/14/25 17:00 03/15/25 12:09 Insulin Aspart (*Bkc) 100 Units/Ml 0.05 units/kg (4 units) 4 units SUB-Q Administration TIDWM [facility] Ondansetron HCl 4 mg 03/13/25 11:00 Ondansetron Inj 4 Mg/2 Ml Vial IV PUSH Q4H PRN Nausea Ropinirole HCl 1 mg 03/13/25 21:00 03/14/25 22:18 Ropinirole Hcl 1 Mg Tablet PO 1 mg HS ARIANNE Administration Rosuvastatin Calcium 20 mg 03/14/25 09:00 03/15/25 08:33 Rosuvastatin 20 Mg Tablet PO 20 mg DAILY ARIANNE Administration Radiology Results: ITS Impressions Chest X-Ray 03/13/25 07:08 IMPRESSION: 1. Small patchy foci airspace disease left lung versus soft tissue artifact. Can consider PA and lateral films with deep inspiration. Chest CTA 03/13/25 08:10 IMPRESSION: 1. Scattered bilateral segmental PE. Mild clot burden. 2. Right heart strain not excluded. Venous Doppler Study 03/13/25 20:16 IMPRESSION: 1: No left lower extremity deep venous thrombosis. Nondiagnostic study of the right lower extremity veins. Labs Labs: Laboratory Results - last 24 hr 03/14/25 03/14/25 03/14/25 12:47 16:24 19:54 WBC RBC Hgb Hct MCV MCH MCHC RDW Plt Count MPV Immature Gran % (Auto) Neut % (Auto) Lymph % (Auto) [place] % (Auto) Eos % (Auto) Baso % (Auto) Lymph # (Auto) [place] # (Auto) Eos # (Auto) Baso # (Auto) Abs Immat Gran (auto) Absolute Neuts (auto) Absolute Nucleated RBC Band Neutrophils % Nucleated RBC % Platelet Estimate Polychromasia Hypochromasia Poikilocytosis Anisocytosis Schistocytes APTT 73.5 H Sodium Potassium Chloride Carbon Dioxide Anion Gap BUN Creatinine Estim Creat Clear Calc Estimated GFR Glucose POC Capillary Glucose 332 H 290 H Calcium Magnesium Procalcitonin 03/15/25 03/15/25 03/15/25 00:03 06:08 07:52 WBC 9.8 RBC 3.95 L Hgb 8.4 L Hct 30.1 L MCV 76.2 L MCH 21.3 L MCHC 27.9 L RDW 18.4 H Plt Count 317 MPV 8.9 Immature Gran % (Auto) 1.4 H Neut % (Auto) 76.1 H Lymph % (Auto) 15.3 L [place] % (Auto) 5.2 Eos % (Auto) 1.5 Baso % (Auto) 0.5 Lymph # (Auto) 1.51 [place] # (Auto) 0.5 Eos # (Auto) 0.2 Baso # (Auto) 0.1 Abs Immat Gran (auto) 0.14 H Absolute Neuts (auto) 7.5 H Absolute Nucleated RBC 0.000 Band Neutrophils % Not Reportable Nucleated RBC % 0.0 Platelet Estimate Adequate Polychromasia Occasional Hypochromasia 2+ Poikilocytosis Occasional Anisocytosis 1+ Schistocytes None seen APTT Sodium 133 L Potassium 4.3 Chloride 102 Carbon Dioxide 27 Anion Gap 4 BUN 17 Creatinine 0.61 L Estim Creat Clear Calc 64 Estimated GFR > 60 Glucose 319 H POC Capillary Glucose 294 H 323 H Calcium 8.9 Magnesium 1.8 Procalcitonin 0.1 03/15/25 11:52 WBC RBC Hgb Hct MCV MCH MCHC RDW Plt Count MPV Immature Gran % (Auto) Neut % (Auto) Lymph % (Auto) [place] % (Auto) Eos % (Auto) Baso % (Auto) Lymph # (Auto) [place] # (Auto) Eos # (Auto) Baso # (Auto) Abs Immat Gran (auto) Absolute Neuts (auto) Absolute Nucleated RBC Band Neutrophils % Nucleated RBC % Platelet Estimate Polychromasia Hypochromasia Poikilocytosis Anisocytosis Schistocytes APTT Sodium Potassium Chloride Carbon Dioxide Anion Gap BUN Creatinine Estim Creat Clear Calc Estimated GFR Glucose POC Capillary Glucose 340 H Calcium Magnesium Procalcitonin
[2025-03-15] MEDS: AMOXICILLIN 500 MG CAPSULE PO (22:17)
[2025-03-15] MEDS: INSULIN GLARGINE (*BKC) 100 UNITS/ML 55 UNITS SUB-Q (22:18)
[2025-03-15] MEDS: GABAPENTIN 300 MG CAPSULE 600 MG PO (22:18)
[2025-03-16] VITALS: PULSE 75
[2025-03-16] MEDS: AMOXICILLIN 500 MG CAPSULE PO ×2 (05:45→12:02)
[2025-03-16 06:15] VITALS: BP 145/63; PULSE 77; RESP 20; TEMP 36.4; O2SAT 94
[2025-03-16] MEDS: APIXABAN 5 MG TABLET PO (08:22)
[2025-03-16] MEDS: ROSUVASTATIN 20 MG TABLET PO (08:22)
[2025-03-16 08:25] VITALS: BP 139/61; PULSE 65; RESP 16; TEMP 36.3; O2SAT 95
[2025-03-16] MEDS: INSULIN ASPART (*BKC) 100 UNITS/ML SUB-Q ×4 (10:08→12:04)
--- NOTE | 2025-03-16 12:15 | PM.DS ---
DS: Admitting Diagnosis Discharge Date 03/16/2025 Admitting Diagnosis Chest pain DS: Discharge Diagnosis Discharge Diagnosis (1) Chest pain: Qualifiers: Chest pain type: other chest pain Qualified Code(s): R07.89 - Other chest pain Code(s): R07.9 - Chest pain, unspecified Status: Acute (2) Atrial fibrillation with rapid ventricular response: Code(s): I48.91 - Unspecified atrial fibrillation Status: Acute DS: Summary Hospital Course Hospital Course: 74 y/o F with PMH of atrial fibrillation on anticoagulation, diabetes, and hyperlipidemia presents here with chest pain. The patient presents here from home via EMS on 03/13 for further evaluation of chest pain. She reports onset of left-sided chest pain around 2:00 a.m. this morning. She describes the pain as dull, nonradiating, constant, with no modifying factors. Denies nausea, vomiting, shortness of breath, diaphoresis, palpitations, leg pain or swelling. The patient also notes that she had a recent right hip surgery performed in [place] in Jan. After her hospitalization for this surgery she required rehab services for short period and was subsequently discharged to a [facility] facility. She reports she stayed there for approximately 1-2 weeks but ultimately signed herself out AMA on 03/08/2025 due to concerns about the facility. She states they left her in a depends for almost 24 hours and she was concerned they were tainting her medications. She reports she refused medications from them the whole time she was there, states she has been off her home medications for the last 2-3 weeks. Since leaving the facility, she has not taken any of her home medications but did make an appt with her PCP on Sunday 03/18 to try to have them filled. Per EMS upon their arrival the patient was in AFib RVR with a rate in the 150s and had a glucose of 592. She was given a 500 mL bolus prior to arrival. Her initial glucose at this facility was 478. She is currently reporting XX. Initial VS at presentation: 98? F, HR 141, R 20, 131/64, and 100% on RA. ED workup showed: WBC 11.2, hemoglobin 9.9 (11.6 on 01/31/2025), D-dimer elevated, VBG virtually unremarkable, sodium 133, creatinine 0.61 and GFR >60, glucose 43, initial troponin 0.014, beta hydroxy 0.71. UA showed indicators of infection with no epithelial cells. Viral PCR negative. CXR showed small patchy foci airspace disease in the left lung versus soft tissue artifact. Chest CTA showed scattered bilateral segmental PE, mild clot burden, right heart strain not excluded. ----- Patient refused to return to rehab, refused home health. She is discharged in stable condition on 03/16/2025, she remains in normal sinus rhythm. Discharge with Cardizem 60 mg p.o. q.i.d., rosuvastatin. Eliquis. With follow-up to Cardiology and PCP. Adverse effects, risk and benefits discussed with the patient, expressed understanding and agreed to proceed. She was full code during the admission . Time Spent with Patient Time attestation: Total time spent providing and/or coordinating discharge services: Time spent: Greater than 30 minutes Exam Const: General: comfortable and no acute distress Other: A&O x3 HENMT: Mouth: Yes moist mucous membranes Eyes: Pupils: Equal, round and reactive pupils present Neck: Neck: supple Resp: Effort & Inspection: normal respiratory effort Auscultation: clear to auscultation bilaterally Cardio: Rate: regular rate Rhythm: regular rhythm GI: Inspection: non-distended GI Palp: Yes Soft to palpation Extrem: General: no edema DS: Data Data Completed and Pending Labs on day of discharge: Labs from last 24 hours 03/16/25 03/16/25 03/16/25 11:23 11:12 08:02 POC Capillary Glucose 339 H 347 H 297 H 03/15/25 03/15/25 21:36 17:14 POC Capillary Glucose 323 H 363 H Discharge Plan Discharge Attending physician on discharge: Devi Steel Consulting providers: Simon Gao Discharging Clinician: Devi Steel Patient Disposition: Home Activity: may shower Diet: as tolerated Discharge Instructions: Follow-up with cyber policy and strategy planner within 7 days Patient Instructions: Antibiotic Form Patient Language: Lithuanian Stand Alone Forms: General Discharge Information Follow-up/Referrals: Tom Ocampo MD [Primary Care Provider, Family Practice] Simon Gao MD [Physician, Cardiology] Discharge Medications: New amoxicillin 500 mg Capsule 500 mg PO Q8HR 7 Days Qty: 21 0RF diltiazem HCl 60 mg Tablet 60 mg PO Q6HR Qty: 120 0RF Continued albuterol sulfate 90 mcg/actuation HFA aerosol inhaler 2 inh inhalation Q6H PRN (Reason: shortness of breath or wheezing) Qty: 8.5 1RF gabapentin 300 mg capsule 600 mg PO QHS Qty: 180 1RF glimepiride 2 mg tablet 2 mg PO QAM Qty: 90 1RF Rx Instructions: administer with breakfast insulin glargine [Lantus Solostar U-100 Insulin] 100 unit/mL (3 mL) insulin pen 55 unit subcut QPM Qty: 45 3RF rosuvastatin 20 mg tablet 20 mg PO DAILY Qty: 90 1RF alcohol swabs [Alcohol Wipes] Pads, Medicated 1 pad topical .5 times a day Qty: 200 2RF Eliquis 5 mg tablet 5 mg PO BID ropinirole 1 mg tablet 1 mg PO HS insulin lispro [Humalog KwikPen Insulin] 100 unit/mL insulin pen See Rx Instructions subcut .QAC & QHS MDD 80 Qty: 15 1RF Rx Instructions: Use with SSI QAC and QHS subcut .QAC & QHS; (DME) pen needle, diabetic 31 gauge x 3/16 needle See Rx Instructions .ROUTE .COMPLEX Qty: 400 3RF Dose Instruction: USE UP TO FOUR (4) TIMES DAILY Rx Instructions: USE UP TO FOUR (4) TIMES DAILY (DME) FreeStyle Bernardo 3 [place] Misc See Rx Instructions .ROUTE .MEDSUPPLY Qty: 1 0RF Rx Instructions: As directed (DME) FreeStyle Bernardo 3 Sensor Device See Rx Instructions .Route Qty: 2 2RF Rx Instructions: Use for diabetes every 15 days Discontinued diltiazem HCl 90 mg capsule,extended release 12 hr 90 mg PO BID Date of admission: 03/14/25 08:51 Primary Care Provider: Tom Ocampo Admitting Provider: Timur Fairchild Oca Attending physician on admission: Timur Fairchild Oca Condition: Stable Hospitalist MIPS Heart Failure (Exclusion) Patient has history of Heart Transplant or Left Ventricular Assistive Device?: No IF YES, STOP HERE Heart Failure (Qualifier) Patient has current or prior documentation of LVEF less than or equal to 40%, or mod/servere depressed LVSF?: No IF NO, STOP HERE
== END 2025-03-16 14:40 | disposition home or self-care (01) | DRG 175 ==
LOC: ANHED 11:05 → ANHIMU 13:30 → ANH3MEDSUR 03-15 12:54 → ANHIMU 03-19 13:26
PROVIDERS: Emergency Medicine; Nurse Practitioner; Student in an Organized Health Care Education/Training Program; Admitting Provider Student in an Organized Health Care Education/Training Program; Emergency Provider Student in an Organized Health Care Education/Training Program; PCP Family Medicine; Visit Provider General Practice
DX: I26.99 Other pulmonary embolism without acute cor pulmonale (principal); E43 Unspecified severe protein-calorie malnutrition; N39.0 Urinary tract infection, site not specified; I48.20 Chronic atrial fibrillation, unspecified; M47.16 Other spondylosis with myelopathy, lumbar region; D50.9 Iron deficiency anemia, unspecified; E11.40 Type 2 diabetes mellitus with diabetic neuropathy, unspecified; E78.2 Mixed hyperlipidemia; M85.852 Other specified disorders of bone density and structure, left thigh; M85.851 Other specified disorders of bone density and structure, right thigh; G25.81 Restless legs syndrome; Z20.822 Contact with and (suspected) exposure to COVID-19; Z96.641 Presence of right artificial hip joint; S72.001D Fracture of unspecified part of neck of right femur, subsequent encounter for closed fracture with routine healing; Z79.01 Long term (current) use of anticoagulants; Z79.4 Long term (current) use of insulin; Z91.148 Patient's other noncompliance with medication regimen for other reason; Z74.01 Bed confinement status; Z68.25 Body mass index [BMI] 25.0-25.9, adult
CPT/HCPCS: 36415; 71045; 71275; 80048; 80053; 81001; 82010; 82607; 82728; 82746; 82803; 82948; 83036; 83540; 83550; 83735; 83880; 84145; 84484; 85025; 85380; 85610; 85730; 87086; 87186; 87637; 93005; 93970; 96361; 96365; 96366; 96367; 96375; 96376; 99291; A9270; C8929; G0378; J0696; J1163; J1644; J1815; J7040; Q9957; Q9967